=== PATIENT | male | born 1960 | race American Indian/Alaskan Native ===

== ENCOUNTER 2016-12-20 10:33 | Outpatient (CLI) | payer MEDICARE ==
[2016-12-20] MEDS ORDERED: XYLOCAINE TOPICAL 4% TP ONE (10:57)
== END 2016-12-20 10:34 | disposition home or self-care (01) ==
LOC: WOUND 10:33
PROVIDERS: ATTEND Surgery
DX: T81.89XA Other complications of procedures, not elsewhere classified, initial encounter (principal); E11.9 Type 2 diabetes mellitus without complications; Z87.891 Personal history of nicotine dependence; Y83.8 Other surgical procedures as the cause of abnormal reaction of the patient, or of later complication, without mention of misadventure at the time of the procedure; Y92.89 Other specified places as the place of occurrence of the external cause
CPT/HCPCS: 11043; 11046; G0463

== ENCOUNTER 2016-12-26 10:16 | Outpatient (CLI) | payer MEDICARE ==
[2016-12-26] MEDS ORDERED: XYLOCAINE TOPICAL 4% TP ONE (10:39)
[2016-12-26] MEDS ORDERED: SILVER NITRATE TP ONE ×2 (11:03→11:48)
== END 2016-12-26 10:17 | disposition home or self-care (01) ==
LOC: WOUND 10:16
PROVIDERS: ATTEND Surgery
DX: T81.89XD Other complications of procedures, not elsewhere classified, subsequent encounter (principal); Y83.8 Other surgical procedures as the cause of abnormal reaction of the patient, or of later complication, without mention of misadventure at the time of the procedure; E11.9 Type 2 diabetes mellitus without complications; Z87.891 Personal history of nicotine dependence

== ENCOUNTER 2016-12-26 12:14 | Outpatient (CLI) | payer MEDICARE ==
--- NOTE | 2016-12-26 13:43 | XRay Report ---
ROUTINE CHEST, TWO VIEWS: HISTORY: Hypertension, diabetes. The trachea, heart, mediastinal contour, lung benedict and bony thorax are unremarkable. No significant change since 04/21/15. IMPRESSION: Unremarkable chest x-ray.
== END 2016-12-26 12:15 | disposition home or self-care (01) ==
LOC: XRAY 12:14
PROVIDERS: ATTEND Surgery
DX: E11.9 Type 2 diabetes mellitus without complications (principal); I10 Essential (primary) hypertension
CPT/HCPCS: 36415; 71020; 83036; 84134

== ENCOUNTER 2017-01-23 10:00 | Outpatient (CLI) | payer MEDICARE ==
[2017-01-23] MEDS ORDERED: XYLOCAINE TOPICAL 4% TP ONE ×2 (10:14→11:00)
== END 2017-01-23 10:01 | disposition home or self-care (01) ==
LOC: WOUND 10:00
PROVIDERS: ATTEND Surgery
DX: T81.89XD Other complications of procedures, not elsewhere classified, subsequent encounter (principal); E11.9 Type 2 diabetes mellitus without complications; Z87.891 Personal history of nicotine dependence; Y83.8 Other surgical procedures as the cause of abnormal reaction of the patient, or of later complication, without mention of misadventure at the time of the procedure

== ENCOUNTER 2017-01-30 09:55 | Outpatient (CLI) | payer MEDICARE ==
[2017-01-30] MEDS ORDERED: XYLOCAINE TOPICAL 4% TP ONE ×2 (11:36→11:41)
== END 2017-01-30 09:56 | disposition home or self-care (01) ==
LOC: WOUND 09:55
PROVIDERS: ATTEND Surgery
DX: T81.89XD Other complications of procedures, not elsewhere classified, subsequent encounter (principal); E11.9 Type 2 diabetes mellitus without complications; Z87.891 Personal history of nicotine dependence; Y83.8 Other surgical procedures as the cause of abnormal reaction of the patient, or of later complication, without mention of misadventure at the time of the procedure
CPT/HCPCS: 97605

== ENCOUNTER 2017-02-06 10:09 | Outpatient (CLI) | payer MEDICARE ==
[2017-02-06] MEDS ORDERED: XYLOCAINE TOPICAL 4% TP ONE ×2 (10:30→10:35)
== END 2017-02-06 10:10 | disposition home or self-care (01) ==
LOC: WOUND 10:09
PROVIDERS: ATTEND Surgery
DX: T81.89XD Other complications of procedures, not elsewhere classified, subsequent encounter (principal); E11.9 Type 2 diabetes mellitus without complications; Z87.891 Personal history of nicotine dependence
CPT/HCPCS: 97605

== ENCOUNTER 2017-02-13 10:15 | Outpatient (CLI) | payer MEDICARE ==
[2017-02-13] MEDS ORDERED: XYLOCAINE TOPICAL 4% TP ONE (10:44)
== END 2017-02-13 10:16 | disposition home or self-care (01) ==
LOC: WOUND 10:15
PROVIDERS: ATTEND Surgery
DX: T81.89XD Other complications of procedures, not elsewhere classified, subsequent encounter (principal); E11.40 Type 2 diabetes mellitus with diabetic neuropathy, unspecified; Z87.891 Personal history of nicotine dependence; Y83.8 Other surgical procedures as the cause of abnormal reaction of the patient, or of later complication, without mention of misadventure at the time of the procedure
CPT/HCPCS: 97605

== ENCOUNTER 2017-02-20 10:09 | Outpatient (CLI) | payer MEDICARE ==
[2017-02-20] MEDS ORDERED: XYLOCAINE TOPICAL 4% TP ONE (10:19)
== END 2017-02-20 10:10 | disposition home or self-care (01) ==
LOC: WOUND 10:09
PROVIDERS: ATTEND Surgery
DX: T81.89XD Other complications of procedures, not elsewhere classified, subsequent encounter (principal); E11.40 Type 2 diabetes mellitus with diabetic neuropathy, unspecified; Z87.891 Personal history of nicotine dependence; Y83.8 Other surgical procedures as the cause of abnormal reaction of the patient, or of later complication, without mention of misadventure at the time of the procedure
CPT/HCPCS: 97605

== ENCOUNTER 2017-02-27 10:25 | Outpatient (CLI) | payer MEDICARE ==
[2017-02-27] MEDS ORDERED: XYLOCAINE TOPICAL 4% TP ONE ×2 (10:51→11:01)
== END 2017-02-27 10:26 | disposition home or self-care (01) ==
LOC: WOUND 10:25
PROVIDERS: ATTEND Surgery
DX: T81.89XD Other complications of procedures, not elsewhere classified, subsequent encounter (principal); E11.9 Type 2 diabetes mellitus without complications; Z87.891 Personal history of nicotine dependence; Y83.8 Other surgical procedures as the cause of abnormal reaction of the patient, or of later complication, without mention of misadventure at the time of the procedure
CPT/HCPCS: 97605

== ENCOUNTER 2017-03-06 10:33 | Outpatient (CLI) | payer MEDICARE ==
[2017-03-06] MEDS ORDERED: XYLOCAINE TOPICAL 4% TP ONE (11:02)
== END 2017-03-06 10:34 | disposition home or self-care (01) ==
LOC: WOUND 10:33
PROVIDERS: ATTEND Surgery
DX: T87.89 Other complications of amputation stump (principal); E11.621 Type 2 diabetes mellitus with foot ulcer; L97.521 Non-pressure chronic ulcer of other part of left foot limited to breakdown of skin; Z87.891 Personal history of nicotine dependence; Y83.5 Amputation of limb(s) as the cause of abnormal reaction of the patient, or of later complication, without mention of misadventure at the time of the procedure

== ENCOUNTER 2017-03-13 10:03 | Outpatient (CLI) | payer MEDICARE ==
[~2017-03-13 10:03] MED LIST: AD OINTMENT TP SCH
[2017-03-13] MEDS ORDERED: AD OINTMENT TP ONE (10:33)
[2017-03-13] MEDS ORDERED: XYLOCAINE TOPICAL 4% TP ONE (11:00)
== END 2017-03-13 10:04 | disposition home or self-care (01) ==
LOC: WOUND 10:03
PROVIDERS: ATTEND Surgery
DX: T87.89 Other complications of amputation stump (principal); E11.621 Type 2 diabetes mellitus with foot ulcer; L97.521 Non-pressure chronic ulcer of other part of left foot limited to breakdown of skin; Z87.891 Personal history of nicotine dependence; Y83.5 Amputation of limb(s) as the cause of abnormal reaction of the patient, or of later complication, without mention of misadventure at the time of the procedure
CPT/HCPCS: A6250

== ENCOUNTER 2017-03-20 10:08 | Outpatient (CLI) | payer MEDICARE ==
[2017-03-20] MEDS ORDERED: XYLOCAINE TOPICAL 4% TP ONE (10:29)
== END 2017-03-20 10:09 | disposition home or self-care (01) ==
LOC: WOUND 10:08
PROVIDERS: ATTEND Surgery
DX: T87.89 Other complications of amputation stump (principal); E11.9 Type 2 diabetes mellitus without complications; Z87.891 Personal history of nicotine dependence; Y83.5 Amputation of limb(s) as the cause of abnormal reaction of the patient, or of later complication, without mention of misadventure at the time of the procedure

== ENCOUNTER 2017-03-27 10:06 | Outpatient (CLI) | payer MEDICARE ==
[2017-03-27] MEDS ORDERED: XYLOCAINE TOPICAL 4% TP ONE (10:26)
[2017-03-27] MEDS ORDERED: AD OINTMENT TP PRN (10:32)
== END 2017-03-27 10:07 | disposition home or self-care (01) ==
LOC: WOUND 10:06
PROVIDERS: ATTEND Surgery
DX: T87.89 Other complications of amputation stump (principal); E11.621 Type 2 diabetes mellitus with foot ulcer; L97.521 Non-pressure chronic ulcer of other part of left foot limited to breakdown of skin; Z87.891 Personal history of nicotine dependence; Y83.5 Amputation of limb(s) as the cause of abnormal reaction of the patient, or of later complication, without mention of misadventure at the time of the procedure
CPT/HCPCS: A6250

== ENCOUNTER 2017-04-03 10:01 | Outpatient (CLI) | payer MEDICARE | END 2017-04-03 10:02 | disposition home or self-care (01) | LOC: WOUND 10:01 | PROVIDERS: ATTEND Surgery | DX: T87.89 Other complications of amputation stump (principal); E11.621 Type 2 diabetes mellitus with foot ulcer; L97.521 Non-pressure chronic ulcer of other part of left foot limited to breakdown of skin; Z87.891 Personal history of nicotine dependence; Y83.5 Amputation of limb(s) as the cause of abnormal reaction of the patient, or of later complication, without mention of misadventure at the time of the procedure | CPT/HCPCS: 99211; G0463 ==

== ENCOUNTER 2019-10-24 13:31 | Inpatient (IN) | payer MEDICARE, OTHER ==
[2019-10-24 15:59] LABS: Alanine Aminotransferase 8 units/L (7-56); Albumin 3.4 g/dL (3.9-5); BUN/Creatinine Ratio 25; Basophils % (Auto) 0.6 % (0.0-1.8); Blood Urea Nitrogen 27 mg/dL (9-20); Eosinophils # (Auto) 0.1 K/mm3 (0.0-0.4); Eosinophils % (Auto) 2.1 % (0.0-4.3); Hematocrit 39.9 % (35.5-45.6); Hemolysis Index 0; Lymphocytes # (Auto) 1.1 K/mm3 (1.2-5.4); Lymphocytes % (Auto) 19.4 % (13.4-35.0); Mean Corpuscular HGB Conc 33 % (32-34); Mean Corpuscular Volume 81 fl (84-94); Monocytes # (Auto) 0.4 K/mm3 (0.0-0.8); Monocytes % (Auto) 7.4 % (0.0-7.3); Platelet Count 217 K/mm3 (140-440); Red Blood Count 4.95 M/mm3 (3.65-5.03); Red Cell Distribution Width 14.1 % (13.2-15.2)
--- NOTE | 2019-10-24 21:13 | Emergency Department Report ---
ED Syncope HPI - General Chief Complaint: Syncope Stated Complaint: SYNCOPAL EPISODE Time Seen by Provider: 10/24/19 21:08 Source: patient Exam Limitations: no limitations - History of Present Illness Initial Comments: Patient is a 59-year-old male that presents emergency room with complaints of dizziness, lightheadedness and syncope. Patient states that he had a syncopal episode today. Patient states he had a brief loss of consciousness. Patient states his syncopal episode was witnessed by his . Patient states prior to his syncopal episode he felt lightheaded and dizzy. Patient states he still feeling lightheaded and dizzy. Patient denies chest pain or shortness of breath. Patient states he has history of diabetes. Patient states he does have his diabetic medications and did not eat or drink as much food and water today as he normally does. Patient denies trauma. Patient denies head injury. Patient states when he started feeling lightheaded and dizzy he sat down and passed out. Patient denies fever and chills. Patient denies shortness of breath. Patient denies abdominal pain. Patient denies recent travel. Patient denies recent international travel. Patient denies exposure to the novel coronavirus. Patient denies sick contacts. Patient denies fever and chills. Patient denies cough. Patient denies diarrhea. Patient denies coming in contact with anybody with symptoms of the novel coronavirus. Timing/Prior Episodes: single episode today Precipitating Factors: Positive: lightheadedness Context: standing Loss of Consciousness: brief (seconds) Current Symptoms: dizziness, lightheadedness - Related Data Allergies/Adverse Reactions: Allergies No Known Allergies Allergy (Verified 11/07/14 03:53) Home Medications: Ambulatory Orders metFORMIN [Glucophage] 1,000 mg PO BID 04/21/15 ED Review of Systems ROS: Stated complaint: SYNCOPAL EPISODE Other details as noted in HPI Constitutional: malaise. denies: chills, fever Eyes: denies: eye pain, eye discharge, vision change ENT: denies: ear pain, throat pain Respiratory: denies: cough, shortness of breath, wheezing Cardiovascular: denies: chest pain, palpitations Endocrine: no symptoms reported Gastrointestinal: denies: abdominal pain, nausea, diarrhea Genitourinary: denies: urgency, dysuria Musculoskeletal: denies: back pain, joint swelling, arthralgia Skin: denies: rash, lesions Neurological: as per HPI. denies: headache, weakness, paresthesias Psychiatric: denies: anxiety, depression Hematological/Lymphatic: denies: easy bleeding, easy bruising ED Past Medical Hx - Past Medical History Previous Medical History?: Yes Hx Hypertension: No Hx Congestive Heart Failure: No Hx Diabetes: Yes Hx Asthma: No - Surgical History Past Surgical History?: Yes Hx Appendectomy: Yes Additional Surgical History: pneumothorax 1991. appendectomy-2012 - Family History Family history: no significant - Social History Smoking Status: Never Smoker - Medications Home Medications: Home Medications Medication Instructions Recorded Confirmed Last Taken Type metFORMIN [Glucophage] 1,000 mg PO BID 04/21/15 04/21/15 Unknown History ED Physical Exam - General Limitations: No Limitations General appearance: alert, in no apparent distress - Head Head exam: Present: atraumatic, normocephalic - Eye Eye exam: Present: normal appearance, PERRL Pupils: Present: normal accommodation - ENT ENT exam: Present: mucous membranes dry - Neck Neck exam: Present: normal inspection - Respiratory Respiratory exam: Present: normal lung sounds bilaterally. Absent: respiratory distress - Cardiovascular Cardiovascular Exam: Present: regular rate, normal rhythm. Absent: systolic murmur, diastolic murmur, rubs, gallop - GI/Abdominal GI/Abdominal exam: Present: soft, normal bowel sounds - Rectal Rectal exam: Present: deferred - Extremities Exam Extremities exam: Present: normal inspection - Back Exam Back exam: Present: normal inspection - Neurological Exam Neurological exam: Present: alert, oriented X3 - Psychiatric Psychiatric exam: Present: normal affect, normal mood - Skin Skin exam: Present: warm, dry, intact, normal color. Absent: rash ED Course Vital Signs 10/24/19 14:05 Temperature 97.6 F Pulse Rate 92 H Respiratory 20 Rate Blood Pressure 94/70 O2 Sat by Pulse 99 Oximetry - Reevaluation(s) Reevaluation #1: I discussed the lab results and findings with patient. I discussed CTA with patient and patient agrees to have a CTA. Patient agrees with plan of care. 10/24/19 22:43 Reevaluation #2: Patient was started on a heparin drip. Heparin protocol ordered. I discussed all results with patient. I discussed plan of care with patient. Patient agrees with plan of care and admission. Patient to be admitted to the hospitalist service. 10/25/19 00:15 - Consultations Consultation #1: I discussed case with Dr. Tripp, vascular surgery. Vascular surgery has no further recommendations except for admission and a heparin drip. 10/24/19 23:55 Consultation #2: Hospitalist consulted for admission. Hospitalist to admit patient. 10/24/19 23:56 ED Medical Decision Making - Lab Data Result diagrams: 10/24/19 15:17 10/24/19 15:17 - EKG Data -: EKG Interpreted by Me EKG shows normal: sinus rhythm, intervals, QRS complexes, ST-T waves Rate: normal - EKG Data Interpretation: other ( [place] deviation noted. Left anterior fascicular block noted.) - Radiology Data Radiology results: report reviewed, image reviewed interpreted by me: Chest x-ray: No pneumonia, no pneumothorax, no acute findings, no osseous findings, no foreign body. CTA CHEST WITH IV CONTRAST INDICATION: syncope. elevated d-dimer. TECHNIQUE: Axial CT images were obtained through the chest after injection of 100 cc Omnipaque 350 IV contrast. 3 plane MIP reconstructions were produced. All CT scans at this location are performed using CT dose reduction for [employer] by means of automated exposure control. COMPARISON: None available. FINDINGS: PULMONARY ARTERIES: Acute moderate-sized saddle pulmonary embolus straddling both right and left pulmonary arteries extending into left lower lobar pulmonary artery with additional small segmental PTE within a right lower lobe segmental pulmonary artery. THORACIC AORTA: No acute abnormality. HEART: Normal. No CT evidence for RV strain CORONARY ARTERIES: No significant calcification. PLEURA: No pleural effusion. No pneumothorax. LYMPH NODES: No significant adenopathy. LUNGS: No acute air space or interstitial disease. ADDITIONAL FINDINGS: Moderate symmetric bilateral gynecomastia. 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 SKELETAL STRUCTURES: No significant osseous abnormality. IMPRESSION: 1. Acute moderate saddle pulmonary embolus. CHEST 1 VIEW INDICATION: syncope. COMPARISON: 12/26/2016 FINDINGS: SUPPORT DEVICES: None. HEART: Within normal limits. LUNGS/PLEURA: No acute air space or interstitial disease. ADDITIONAL FINDINGS: None. IMPRESSION: 1. No acute findings. CT head without contrast INDICATION : syncope, dizzy. TECHNIQUE: Axial imaging performed from the skull apex through the skull base without the use of contrast. All CT scans at this location are performed using CT dose reduction for ALARA by means of automated exposure control. COMPARISON: CT head from 09/07/2007 FINDINGS: Parenchyma: No acute intracranial hemorrhage or parenchymal abnormality. Ventricles: Ventricles are normal in size and appear symmetric. Soft tissues: Soft tissues including the orbits appear normal. Bones: No acute osseous abnormality. Sinuses: Sinuses and mastoid air cells are clear. IMPRESSION: No acute abnormality. - Medical Decision Making Patient is a 59-year-old male that presents emergency room with complaints of dizziness, lightheadedness and syncope. Patient had a brief loss of consciousness. Patient's vital signs stable. Patient had EKG done which showed sinus rhythm and no STEMI. Patient had a chest x-ray which was negative. Patient had a head CT for the dizziness and syncope and it was negative for acute findings. Patient had labs done which were consistent with dehydration. Patient had a d-dimer tested because of his syncopal episode. Patient's d-dimer was significant elevated. Patient then had a CTA which shows a saddle embolism with no RV strain. I discussed the CTA findings with vascular surgery and they recommended just a standard heparin drip and bolus and admission. Patient admitted to the hospitalist service. - Differential Diagnosis Dehydration, hyperglycemia, hypoglycemia, electrolyte imbalance, syncope Critical Care Time: Yes Critical care time in (mins) excluding proc time.: 35 Critical care attestation.: If time is entered above; I have spent that time in minutes in the direct care of this critically ill patient, excluding procedure time. 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
[2019-10-24] MEDS ORDERED: SODIUM CHLORIDE 0.9% 1000 ML 1,000 ML IV ONE (21:16)
--- NOTE | 2019-10-24 21:49 | XRay Report ---
CHEST 1 VIEW INDICATION: syncope. COMPARISON: 12/26/2016 FINDINGS: SUPPORT DEVICES: None. HEART: Within normal limits. LUNGS/PLEURA: No acute air space or interstitial disease. ADDITIONAL FINDINGS: None. IMPRESSION: 1. No acute findings. Signer Name: Leonel Mello MD Signed: 10/24/2019 9:45 PM Workstation Name: [id number]
--- NOTE | 2019-10-24 22:07 | Cat Scan Report ---
CT head without contrast INDICATION : syncope, dizzy. TECHNIQUE: Axial imaging performed from the skull apex through the skull base without the use of con trast. All CT scans at this location are performed using CT dose reduction for ALARA by means of aut omated exposure control. COMPARISON: CT head from 09/07/2007 FINDINGS: Parenchyma: No acute intracranial hemorrhage or parenchymal abnormality. Ventricles: Ventricles are normal in size and appear symmetric. Soft tissues: Soft tissues including the orbits appear normal. Bones: No acute osseous abnormality. Sinuses: Sinuses and mastoid air cells are clear. IMPRESSION: No acute abnormality. Signer Name: Leonel Mello MD Signed: 10/24/2019 10:02 PM Workstation Name: [id number]
[2019-10-24 22:15] LABS: Creatine Kinase MB 3.7 ng/mL (0.0-4.0)
[2019-10-24] MEDS ORDERED: HEPARIN 10,000 UNITS/10 ML VIAL IV ONE (23:43)
--- NOTE | 2019-10-24 23:50 | Cat Scan Report ---
CTA CHEST WITH IV CONTRAST INDICATION: syncope. elevated d-dimer. TECHNIQUE: Axial CT images were obtained through the chest after injection of 100 cc Omnipaque 350 IV contrast. 3 plane MIP reconstructions were produced. All CT scans at this location are performed using CT dose reduction for ALARA by means of automated exposure control. COMPARISON: None available. FINDINGS: PULMONARY ARTERIES: Acute moderate-sized saddle pulmonary embolus straddling both right and left pulm onary arteries extending into left lower lobar pulmonary artery with additional small segmental PTE w ithin a right lower lobe segmental pulmonary artery. THORACIC AORTA: No acute abnormality. HEART: Normal. No CT evidence for RV strain CORONARY ARTERIES: No significant calcification. PLEURA: No pleural effusion. No pneumothorax. LYMPH NODES: No significant adenopathy. LUNGS: No acute air space or interstitial disease. ADDITIONAL FINDINGS: Moderate symmetric bilateral gynecomastia. 1.6 cm intramuscular lipoma left pect oralis major muscle series 2 image 54 UPPER ABDOMEN: No acute findings. SKELETAL STRUCTURES: No significant osseous abnormality. IMPRESSION: 1. Acute moderate saddle pulmonary embolus. CRITICAL RESULT: Acute saddle pulmonary embolus Time of Discovery: 10:42 PM Central time 10/24/2019 Time of Communication: 10:43 PM central time Licensed Practitioner Receiving Report: [place] [facility] Read Back Performed: Yes. Signer Name: Artem Rodríguez MD Signed: 10/24/2019 11:45 PM Workstation Name: [id number]
[2019-10-24] MEDS ORDERED: HEPARIN/ 0.45% NACL DRIP 25,000 UNIT/500 ML BAG ONE (23:54)
[2019-10-25] MEDS: HEPARIN/ 0.45% NACL DRIP 25,000 UNIT/500 ML BAG IV SCH ×2 (00:08→21:18)
[2019-10-25 00:40] LABS: INR 1.02 (0.87-1.13); Partial Thromboplastin Time 27.8 Sec. (24.2-36.6)
[2019-10-25] MEDS ORDERED: ACETAMINOPHEN 325 MG TAB PO PRN (02:53)
[2019-10-25] MEDS ORDERED: MORPHINE 2 MG/1 ML INJ IV PRN (02:53)
[2019-10-25] MEDS ORDERED: DEXTROSE 50% IN WATER (25GM) 50 ML SYRINGE IV PRN (02:53)
[2019-10-25] MEDS ORDERED: ONDANSETRON 4 MG/2 ML INJ IV PRN (02:53)
[2019-10-25] MEDS ORDERED: MAGNESIUM HYDROXIDE (MOM) ORAL LIQD UDC PO PRN (02:53)
--- NOTE | 2019-10-25 03:07 | History and Physical Report ---
History of Present Illness Date of examination: 10/25/19 Date of admission: 10/25/19 01:22 Chief complaint: Syncope Light headedness Dizziness History of present illness: 59-year-old -[place] male with known history of diabetes mellitus presented to the emergency room today with complaints of dizziness and syncopal episode. He admits that he had a brief period of loss of consciousness which was witnessed by his . He still felt dizzy upon arrival in the emergency room. Denies any chest pain or shortness of breath, no fever or chills, no nausea or vomiting, no diarrhea, denies any sick contacts and no recent travel. Denies any contact with anyone COVID-19. Patient admits that he sits down at home for long period of time. Work-up in the emergency room today reveals elevated d-dimer. CT angiogram done reveals saddle embolus. Consult has been placed to the vascular surgeon Dr. Tripp who will be evaluating patient. Meanwhile patient has been placed on heparin drip. Past History Past Medical History: diabetes Past Surgical History: appendectomy (2012), Other (Pneumothorax 1991) Social history: no significant social history Family history: no significant family history Medications and Allergies Allergies Allergy/AdvReac Type Severity Reaction Status Date / Time No Known Allergies Allergy Verified 11/07/14 03:53 Home Medications Medication Instructions Recorded Confirmed Last Taken Type metFORMIN [Glucophage] 500 mg PO BID 04/21/15 10/25/19 Unknown History Insulin Glargine [Lantus VIAL] 36 unit SUB-Q QHS 10/25/19 10/25/19 Unknown History Active Meds: Active Medications Acetaminophen (Tylenol) 650 mg PO Q4H PRN PRN Reason: Pain MILD(1-3)/Fever >100.5/ONEAL Dextrose (D50w (25gm) Syringe) 50 ml IV Q30MIN PRN; Protocol PRN Reason: Hypoglycemia Heparin Sodium/Sodium Chloride (Heparin/ 0.45% Nacl-25,000 Unit/500 Ml) 25,000 unit in 500 mls @ 30 mls/hr IV TITR LUCERO; Protocol Last Admin: 10/25/19 00:08 Dose: 1,500 units/hr, 30 mls/hr Documented by: Insulin Human Lispro (Humalog) 0 unit SUB-Q ACHS LUCERO; Protocol Magnesium Hydroxide (Milk Of Magnesia) 30 ml PO Q4H PRN PRN Reason: Constipation Morphine Sulfate (Morphine) 2 mg IV Q4H PRN PRN Reason: Pain, Moderate (4-6) Ondansetron HCl (Zofran) 4 mg IV Q8H PRN PRN Reason: Nausea And Vomiting Sodium Chloride (Sodium Chloride Flush Syringe 10 Ml) 10 ml IV BID LUCERO Sodium Chloride (Sodium Chloride Flush Syringe 10 Ml) 10 ml IV PRN PRN PRN Reason: LINE FLUSH Review of Systems Constitutional: no fever, no chills Ears, nose, mouth and throat: no nasal congestion, no sore throat Cardiovascular: no chest pain, no palpitations Respiratory: no cough, no shortness of breath Genitourinary Male: no dysuria, no hematuria, no flank pain Musculoskeletal: no neck pain, no low back pain Integumentary: no rash, no pruritis Neurological: syncope, other (Dizziness), no headaches, no confusion Psychiatric: no anxiety, no depression Exam - Constitutional Vitals: Temp Pulse Resp BP Pulse Ox 97.6 F 86 12 122/84 96 10/24/19 14:05 10/25/19 02:45 10/25/19 02:45 10/25/19 02:45 10/25/19 02:45 General appearance: Present: no acute distress, well-nourished - EENT Eyes: Present: PERRL, EOM intact. Absent: scleral icterus ENT: hearing intact, clear oral mucosa, dentition normal - Neck Neck: Present: supple, normal ROM - Respiratory Respiratory effort: normal Respiratory: bilateral: CTA - Cardiovascular Rhythm: regular Heart Sounds: Present: S1 & S2. Absent: gallop, systolic murmur, diastolic murmur, rub - Extremities Extremities: no ischemia, pulses intact, pulses symmetrical, No edema, Full ROM Peripheral Pulses: within normal limits - Abdominal General gastrointestinal: Present: soft, non-tender, non-distended, normal bowel sounds. Absent: mass - Integumentary Integumentary: Present: clear, warm, dry. Absent: rash - Musculoskeletal Musculoskeletal: strength equal bilaterally - Psychiatric Psychiatric: appropriate mood/affect, intact judgment & insight, memory intact, cooperative - Neurologic Neurologic: CNII-XII intact, no focal deficits, moves all extremities HEART Score - HEART Score Troponin: Troponin T < 0.010 ng/mL (0.00-0.029) 10/24/19 15:17 Results - Labs CBC & Chem 7: 10/24/19 15:17 10/24/19 15:17 Labs: Abnormal lab results 10/24/19 10/24/19 10/24/19 Range/Units 15:17 15:17 21:24 MCV 81 L (84-94) fl MCH 26 L (28-32) pg [place] % (Auto) 7.4 H (0.0-7.3) % Lymph # 1.1 L (1.2-5.4) K/mm3 Seg Neutrophils % 70.5 H (40.0-70.0) % D-Dimer 2474.81 H (0-234) ng/mlDDU Sodium 133 L (137-145) mmol/L Chloride 96.2 L (98-107) mmol/L BUN 27 H (9-20) mg/dL Glucose 328 H (75-100) mg/dL Albumin 3.4 L (3.9-5) g/dL Assessment and Plan - Patient Problems (1) Pulmonary embolism Current Visit: Yes Status: Acute Qualifiers: Pulmonary embolism type: saddle Chronicity: acute Acute cor pulmonale presence: without acute cor pulmonale Qualified Code(s): I26.92 - Saddle embolus of pulmonary artery without acute cor pulmonale Plan to address problem: Patient placed on heparin drip. Consult has been placed to vascular surgeon for evaluation and recommendation. (2) Diabetes mellitus Current Visit: Yes Status: Acute Plan to address problem: We will monitor Accu-Cheks closely. (3) Full code status Current Visit: Yes Status: Acute
[2019-10-25] MEDS: INSULIN LISPRO 100 UNIT/ML VIAL 3 mL SUB-Q SCH ×4 (08:49→22:10)
--- NOTE | 2019-10-25 10:53 | Progress Note ---
Assessment and Plan Assessment and plan: Pulmonary embolism. Continue heparin drip. Vascular consultation pending. Check echocardiogram for right heart strain. Diabetes mellitus type 2. Continue Accu-Cheks and sliding scale insulin. Total visit time equals 35 minutes with greater than 50% spent on coordination of care and counseling. History Interval history: No new issues overnight. Hospitalist Physical - Constitutional Vitals: Temp Pulse Resp BP Pulse Ox 97.8 F 87 12 134/88 93 10/25/19 08:00 10/25/19 10:00 10/25/19 10:00 10/25/19 10:00 10/25/19 10:00 General appearance: Present: no acute distress, well-nourished - EENT Eyes: Present: PERRL, EOM intact ENT: hearing intact, clear oral mucosa, dentition normal - Neck Neck: Present: supple, normal ROM - Respiratory Respiratory effort: normal Respiratory: bilateral: CTA - Cardiovascular Rhythm: regular Heart Sounds: Present: S1 & S2. Absent: gallop, rub - Extremities Extremities: no ischemia, No edema, Full ROM - Abdominal General gastrointestinal: soft, non-tender, non-distended, normal bowel sounds - Integumentary Integumentary: Present: clear, warm, dry - Neurologic Neurologic: CNII-XII intact, moves all extremities HEART Score - HEART Score Troponin: Troponin T < 0.010 ng/mL (0.00-0.029) 10/24/19 15:17 Results - Labs CBC & Chem 7: 10/24/19 15:17 10/24/19 15:17 Labs: Laboratory Last Values WBC 5.6 K/mm3 (4.5-11.0) 10/24/19 15:17 RBC 4.95 M/mm3 (3.65-5.03) 10/24/19 15:17 Hgb 13.0 gm/dl (11.8-15.2) 10/24/19 15:17 Hct 39.9 % (35.5-45.6) 10/24/19 15:17 MCV 81 fl (84-94) L 10/24/19 15:17 MCH 26 pg (28-32) L 10/24/19 15:17 MCHC 33 % (32-34) 10/24/19 15:17 RDW 14.1 % (13.2-15.2) 10/24/19 15:17 Plt Count 217 K/mm3 (140-440) 10/24/19 15:17 Lymph % (Auto) 19.4 % (13.4-35.0) 10/24/19 15:17 [place] % (Auto) 7.4 % (0.0-7.3) H 10/24/19 15:17 Eos % (Auto) 2.1 % (0.0-4.3) 10/24/19 15:17 Baso % (Auto) 0.6 % (0.0-1.8) 10/24/19 15:17 Lymph # 1.1 K/mm3 (1.2-5.4) L 10/24/19 15:17 [place] # 0.4 K/mm3 (0.0-0.8) 10/24/19 15:17 Eos # 0.1 K/mm3 (0.0-0.4) 10/24/19 15:17 Baso # 0.0 K/mm3 (0.0-0.1) 10/24/19 15:17 Seg Neutrophils % 70.5 % (40.0-70.0) H 10/24/19 15:17 Seg Neutrophils # 3.9 K/mm3 (1.8-7.7) 10/24/19 15:17 PT 13.6 Sec. (12.2-14.9) 10/24/19 21:24 INR 1.02 (0.87-1.13) 10/24/19 21:24 APTT 27.8 Sec. (24.2-36.6) 10/24/19 21:24 D-Dimer 2474.81 ng/mlDDU (0-234) H 10/24/19 21:24 Heparin Anti-Xa Level 1.38 U.I./ml (0.3-0.7) H 10/25/19 05:45 Sodium 133 mmol/L (137-145) L 10/24/19 15:17 Potassium 4.4 mmol/L (3.6-5.0) 10/24/19 15:17 Chloride 96.2 mmol/L (98-107) L 10/24/19 15:17 Carbon Dioxide 23 mmol/L (22-30) 10/24/19 15:17 Anion Gap 18 mmol/L 10/24/19 15:17 BUN 27 mg/dL (9-20) H 10/24/19 15:17 Creatinine 1.1 mg/dL (0.8-1.3) 10/24/19 15:17 Estimated GFR > 60 ml/min 10/24/19 15:17 BUN/Creatinine Ratio 25 % 10/24/19 15:17 Glucose 328 mg/dL (75-100) H 10/24/19 15:17 POC Glucose 228 (70-105) H 10/25/19 08:20 Calcium 9.0 mg/dL (8.4-10.2) 10/24/19 15:17 Total Bilirubin 0.50 mg/dL (0.1-1.2) 10/24/19 15:17 AST 9 units/L (5-40) 10/24/19 15:17 ALT 8 units/L (7-56) 10/24/19 15:17 Alkaline Phosphatase 113 units/L (35-129) 10/24/19 15:17 Total Creatine Kinase 166 units/L (55-170) 10/24/19 21:24 CK-MB (CK-2) 3.7 ng/mL (0.0-4.0) 10/24/19 21:24 CK-MB (CK-2) Rel Index 2.2 (0-4) 10/24/19 21:24 Troponin T < 0.010 ng/mL (0.00-0.029) 10/24/19 15:17 Total Protein 7.1 g/dL (6.3-8.2) 10/24/19 15:17 Albumin 3.4 g/dL (3.9-5) L 10/24/19 15:17 Albumin/Globulin Ratio 0.9 % 10/24/19 15:17 Brandt/IV: Voiding Method Urinal IV Catheter Type [Right Hand] Peripheral IV IV Catheter Type [Left INT / Saline Lock Antecubital] Active Medications - Current Medications Current Medications: Generic Name Dose Route Start Last Admin Trade Name Freq PRN Reason Stop Dose Admin Acetaminophen 650 mg 10/25/19 02:53 Tylenol PO Q4H PRN Pain MILD(1-3)/Fever >100.5/ONEAL Dextrose 0 ml 10/25/19 02:53 D50w (25gm) Syringe IV Q30MIN PRN Hypoglycemia Protocol Heparin Sodium/Sodium Chloride 25,000 unit in 500 mls @ 30 mls/hr 10/24/19 23:45 10/25/19 08:38 Heparin/ 0.45% Nacl-25,000 Unit/500 Ml IV 1,300 units/hr TITR LUCERO 26 mls/hr Titration Protocol 1,500 UNITS/HR Insulin Human Lispro 0 unit 10/25/19 07:30 10/25/19 08:49 Humalog SUB-Q 3 unit ACHS LUCERO Administration Protocol Magnesium Hydroxide 30 ml 10/25/19 02:53 Milk Of Magnesia PO Q4H PRN Constipation Morphine Sulfate 2 mg 10/25/19 02:53 Morphine IV Q4H PRN Pain, Moderate (4-6) Ondansetron HCl 4 mg 10/25/19 02:53 Zofran IV Q8H PRN Nausea And Vomiting Sodium Chloride 10 ml 10/25/19 10:00 Sodium Chloride Flush Syringe 10 Ml IV BID LUCERO Sodium Chloride 10 ml 10/25/19 02:53 Sodium Chloride Flush Syringe 10 Ml IV PRN PRN LINE FLUSH
--- NOTE | 2019-10-25 11:06 | Consultation ---
History of Present Illness - Reason for Consult Consult date: 10/25/19 Pulmonary embolism - History of Present Illness Patient with a history of diabetes and recent immobility. He ambulates with a cane. He experienced a syncopal episode prior to arrival to the ED. He was found to have an elevated d-dimer and a CTA of his chest was performed. This demonstrates a nonocclusive saddle pulmonary embolus with small distal emboli. At time of examination, the patient is resting comfortably in bed breathing room air with a heart rate in the 80s. No complaints of chest pain. He has no prior history of DVT. No family history. He does not report any asymmetric lower extremity swelling recently. Past History Past Medical History: diabetes Past Surgical History: appendectomy (2012), Other (Pneumothorax 1991) Social history: no significant social history Family history: no significant family history Medications and Allergies Allergies Allergy/AdvReac Type Severity Reaction Status Date / Time No Known Allergies Allergy Verified 11/07/14 03:53 Home Medications Medication Instructions Recorded Confirmed Last Taken Type metFORMIN [Glucophage] 500 mg PO BID 04/21/15 10/25/19 Unknown History Insulin Glargine [Lantus VIAL] 36 unit SUB-Q QHS 10/25/19 10/25/19 Unknown History Active Meds: Active Medications Acetaminophen (Tylenol) 650 mg PO Q4H PRN PRN Reason: Pain MILD(1-3)/Fever >100.5/ONEAL Dextrose (D50w (25gm) Syringe) 0 ml IV Q30MIN PRN; Protocol PRN Reason: Hypoglycemia Heparin Sodium/Sodium Chloride (Heparin/ 0.45% Nacl-25,000 Unit/500 Ml) 25,000 unit in 500 mls @ 30 mls/hr IV TITR LUCERO; Protocol Last Titration: 10/25/19 08:38 Dose: 1,300 units/hr, 26 mls/hr Documented by: Insulin Human Lispro (Humalog) 0 unit SUB-Q ACHS LUCERO; Protocol Last Admin: 10/25/19 08:49 Dose: 3 unit Documented by: Magnesium Hydroxide (Milk Of Magnesia) 30 ml PO Q4H PRN PRN Reason: Constipation Morphine Sulfate (Morphine) 2 mg IV Q4H PRN PRN Reason: Pain, Moderate (4-6) Ondansetron HCl (Zofran) 4 mg IV Q8H PRN PRN Reason: Nausea And Vomiting Sodium Chloride (Sodium Chloride Flush Syringe 10 Ml) 10 ml IV BID LUCERO Sodium Chloride (Sodium Chloride Flush Syringe 10 Ml) 10 ml IV PRN PRN PRN Reason: LINE FLUSH Review of Systems All systems: negative Exam - Constitutional Vitals: Temp Pulse Resp BP Pulse Ox 97.8 F 87 12 134/88 93 10/25/19 08:00 10/25/19 10:00 10/25/19 10:00 10/25/19 10:00 10/25/19 10:00 General appearance: Present: no acute distress - EENT Eyes: Present: EOM intact ENT: hearing intact - Neck Neck: Present: supple, normal ROM - Respiratory Respiratory effort: normal - Extremities Extremities: Full ROM - Abdominal General gastrointestinal: Present: deferred Male genitourinary: Present: deferred - Rectal Rectal Exam: deferred - Psychiatric Psychiatric: appropriate mood/affect, cooperative Results - Labs CBC & Chem 7: 10/24/19 15:17 10/24/19 15:17 Labs: Abnormal lab results 10/24/19 10/24/19 10/24/19 Range/Units 15:17 15:17 21:24 MCV 81 L (84-94) fl MCH 26 L (28-32) pg [place] % (Auto) 7.4 H (0.0-7.3) % Lymph # 1.1 L (1.2-5.4) K/mm3 Seg Neutrophils % 70.5 H (40.0-70.0) % D-Dimer 2474.81 H (0-234) ng/mlDDU Heparin Anti-Xa Level (0.3-0.7) U.I./ml Sodium 133 L (137-145) mmol/L Chloride 96.2 L (98-107) mmol/L BUN 27 H (9-20) mg/dL Glucose 328 H (75-100) mg/dL POC Glucose (70-105) Albumin 3.4 L (3.9-5) g/dL 10/25/19 10/25/19 10/25/19 Range/Units 03:40 05:45 08:20 MCV (84-94) fl MCH (28-32) pg [place] % (Auto) (0.0-7.3) % Lymph # (1.2-5.4) K/mm3 Seg Neutrophils % (40.0-70.0) % D-Dimer (0-234) ng/mlDDU Heparin Anti-Xa Level 1.38 H (0.3-0.7) U.I./ml Sodium (137-145) mmol/L Chloride (98-107) mmol/L BUN (9-20) mg/dL Glucose (75-100) mg/dL POC Glucose 236 H 228 H (70-105) Albumin (3.9-5) g/dL - Imaging and Cardiology CT scan - chest: report reviewed, image reviewed Assessment and Plan Patient with a history of saddle pulmonary embolus which does not appear to be causing any issues at this time. He is currently on a heparin drip for anticoagulation and will need to be transitioned to oral anticoagulation for approximately 6 months following discharge. The patient will need to be evaluated with a bilateral lower extremity venous ultrasound to determine if additional thrombus is present. Patient does have negative troponins. The right heart is somewhat enlarged on CT scan and an echocardiogram will be ordered. The patient may benefit from nonemergent placement of thrombolytics catheters versus pulmonary thrombectomy to prevent CTEPH. We will plan on doing this on Sunday.
[2019-10-26 05:23] LABS: Basophils % (Auto) 0.9 % (0.0-1.8); Eosinophils # (Auto) 0.1 K/mm3 (0.0-0.4); Eosinophils % (Auto) 3.1 % (0.0-4.3); Hemoglobin 11.9 gm/dl (11.8-15.2); Lymphocytes # (Auto) 1.5 K/mm3 (1.2-5.4); Lymphocytes % (Auto) 31.6 % (13.4-35.0); Mean Corpuscular HGB Conc 34 % (32-34); Mean Corpuscular Volume 79 fl (84-94); Monocytes # (Auto) 0.3 K/mm3 (0.0-0.8); Monocytes % (Auto) 6.1 % (0.0-7.3); Platelet Count 199 K/mm3 (140-440); Red Blood Count 4.42 M/mm3 (3.65-5.03); Red Cell Distribution Width 13.9 % (13.2-15.2)
[2019-10-26 05:28] LABS: BUN/Creatinine Ratio 17; Blood Urea Nitrogen 17 mg/dL (9-20); Calcium 8.6 mg/dL (8.4-10.2); Hemolysis Index 0
[2019-10-26 05:33] LABS: INR 0.94 (0.87-1.13)
[2019-10-26] MEDS: INSULIN LISPRO 100 UNIT/ML VIAL 3 mL SUB-Q SCH ×4 (08:39→23:58)
--- NOTE | 2019-10-26 09:57 | Progress Note ---
Assessment and Plan Assessment and plan: Pulmonary embolism. Heparin drip. Vascular consultation pending. Check echocardiogram for right heart strain. Diabetes mellitus type 2. Continue Accu-Cheks and sliding scale insulin. 10/26/2019. Vascular surgery believes that the patient may benefit from nonemergent placement of thrombolytics catheters versus pulmonary thrombectomy to prevent CTEPH. We will plan on doing this on Sunday. Await echocardiogram to rule out right heart strain. Continue heparin drip for now until after the procedure and then transition to oral anticoagulation History Interval history: No new issues overnight. Hospitalist Physical - Constitutional Vitals: Temp Pulse Resp BP Pulse Ox 97.8 F 78 12 133/86 96 10/26/19 04:09 10/26/19 07:00 10/26/19 07:00 10/26/19 07:00 10/26/19 07:00 General appearance: Present: no acute distress - EENT Eyes: Present: PERRL, EOM intact ENT: hearing intact, clear oral mucosa, dentition normal - Neck Neck: Present: supple, normal ROM - Respiratory Respiratory effort: normal Respiratory: bilateral: CTA - Cardiovascular Rhythm: regular Heart Sounds: Present: S1 & S2. Absent: gallop, rub - Extremities Extremities: no ischemia, No edema, Full ROM - Abdominal General gastrointestinal: soft, non-tender, non-distended, normal bowel sounds - Integumentary Integumentary: Present: clear, warm, dry - Neurologic Neurologic: CNII-XII intact, moves all extremities HEART Score - HEART Score Troponin: Troponin T < 0.010 ng/mL (0.00-0.029) 10/24/19 15:17 Results - Labs CBC & Chem 7: 10/26/19 04:40 10/26/19 04:40 Labs: Laboratory Last Values WBC 4.8 K/mm3 (4.5-11.0) 10/26/19 04:40 RBC 4.42 M/mm3 (3.65-5.03) 10/26/19 04:40 Hgb 11.9 gm/dl (11.8-15.2) 10/26/19 04:40 Hct 35.0 % (35.5-45.6) L 10/26/19 04:40 MCV 79 fl (84-94) L 10/26/19 04:40 MCH 27 pg (28-32) L 10/26/19 04:40 MCHC 34 % (32-34) 10/26/19 04:40 RDW 13.9 % (13.2-15.2) 10/26/19 04:40 Plt Count 199 K/mm3 (140-440) 10/26/19 04:40 Lymph % (Auto) 31.6 % (13.4-35.0) 10/26/19 04:40 [place] % (Auto) 6.1 % (0.0-7.3) 10/26/19 04:40 Eos % (Auto) 3.1 % (0.0-4.3) 10/26/19 04:40 Baso % (Auto) 0.9 % (0.0-1.8) 10/26/19 04:40 Lymph # 1.5 K/mm3 (1.2-5.4) 10/26/19 04:40 [place] # 0.3 K/mm3 (0.0-0.8) 10/26/19 04:40 Eos # 0.1 K/mm3 (0.0-0.4) 10/26/19 04:40 Baso # 0.0 K/mm3 (0.0-0.1) 10/26/19 04:40 Seg Neutrophils % 58.3 % (40.0-70.0) 10/26/19 04:40 Seg Neutrophils # 2.8 K/mm3 (1.8-7.7) 10/26/19 04:40 PT 12.7 Sec. (12.2-14.9) 10/26/19 04:40 INR 0.94 (0.87-1.13) 10/26/19 04:40 APTT 27.8 Sec. (24.2-36.6) 10/24/19 21:24 D-Dimer 2474.81 ng/mlDDU (0-234) H 10/24/19 21:24 Heparin Anti-Xa Level 0.55 U.I./ml (0.3-0.7) 10/26/19 00:25 Sodium 136 mmol/L (137-145) L 10/26/19 04:40 Potassium 3.9 mmol/L (3.6-5.0) 10/26/19 04:40 Chloride 101.5 mmol/L (98-107) 10/26/19 04:40 Carbon Dioxide 24 mmol/L (22-30) 10/26/19 04:40 Anion Gap 14 mmol/L 10/26/19 04:40 BUN 17 mg/dL (9-20) 10/26/19 04:40 Creatinine 1.0 mg/dL (0.8-1.3) 10/26/19 04:40 Estimated GFR > 60 ml/min 10/26/19 04:40 BUN/Creatinine Ratio 17 % 10/26/19 04:40 Glucose 198 mg/dL (75-100) H 10/26/19 04:40 POC Glucose 199 (70-105) H 10/26/19 08:34 Calcium 8.6 mg/dL (8.4-10.2) 10/26/19 04:40 Total Bilirubin 0.50 mg/dL (0.1-1.2) 10/24/19 15:17 AST 9 units/L (5-40) 10/24/19 15:17 ALT 8 units/L (7-56) 10/24/19 15:17 Alkaline Phosphatase 113 units/L (35-129) 10/24/19 15:17 Total Creatine Kinase 166 units/L (55-170) 10/24/19 21:24 CK-MB (CK-2) 3.7 ng/mL (0.0-4.0) 10/24/19 21:24 CK-MB (CK-2) Rel Index 2.2 (0-4) 10/24/19 21:24 Troponin T < 0.010 ng/mL (0.00-0.029) 10/24/19 15:17 Total Protein 7.1 g/dL (6.3-8.2) 10/24/19 15:17 Albumin 3.4 g/dL (3.9-5) L 10/24/19 15:17 Albumin/Globulin Ratio 0.9 % 10/24/19 15:17 Brandt/IV: Voiding Method Urinal IV Catheter Type [Right Hand] Peripheral IV IV Catheter Type [Left INT / Saline Lock Antecubital] Active Medications - Current Medications Current Medications: Generic Name Dose Route Start Last Admin Trade Name Freq PRN Reason Stop Dose Admin Acetaminophen 650 mg 10/25/19 02:53 Tylenol PO Q4H PRN Pain MILD(1-3)/Fever >100.5/ONEAL Dextrose 0 ml 10/25/19 02:53 D50w (25gm) Syringe IV Q30MIN PRN Hypoglycemia Protocol Heparin Sodium/Sodium Chloride 25,000 unit in 500 mls @ 30 mls/hr 10/24/19 23:45 10/26/19 02:07 Heparin/ 0.45% Nacl-25,000 Unit/500 Ml IV 1,200 units/hr TITR LUCERO 24 mls/hr Titration Protocol 1,500 UNITS/HR Insulin Human Lispro 0 unit 10/25/19 07:30 10/26/19 08:39 Humalog SUB-Q 2 unit ACHS LUCERO Administration Protocol Magnesium Hydroxide 30 ml 10/25/19 02:53 Milk Of Magnesia PO Q4H PRN Constipation Morphine Sulfate 2 mg 10/25/19 02:53 Morphine IV Q4H PRN Pain, Moderate (4-6) Ondansetron HCl 4 mg 10/25/19 02:53 Zofran IV Q8H PRN Nausea And Vomiting Sodium Chloride 10 ml 10/25/19 10:00 10/25/19 21:18 Sodium Chloride Flush Syringe 10 Ml IV 10 ml BID LUCERO Administration Sodium Chloride 10 ml 10/25/19 02:53 Sodium Chloride Flush Syringe 10 Ml IV PRN PRN LINE FLUSH Nutrition/Malnutrition Assess - Dietary Evaluation Nutrition/Malnutrition Findings: Nutrition Notes Start: 10/25/19 12:07 Freq: Status: Active Protocol: Document 10/25/19 12:07 (Rec: 10/25/19 12:13 [id number]) Co-Sign 10/25/19 12:07 LP Nutrition Notes Need for Assessment generated from: MD Order,Education Initial or Follow up Brief Note Current Diagnosis Diabetes Other Pertinent Diagnosis Syncope, Hyperglycemia, Dehydration Current Diet Consistent CHO [place] Body Weight (kg) 0 Subjective/Other Information MD consult for diet edu. Pt reports eating 100% of meals and still feeling hungry. RD gave snack and double meat/ vegetable portions. #1 Nutrition Diagnosis Food and nutrition-related knowledge deficit Etiology inadquate prior DM edication As Evidenced by Signs and Symptoms pt had questions about DM diet Diagnosis Progress(for reassessment Resolved documentation) Nutrition Intervention Teaching Recipient Patient Learning Readiness Good Teaching Methods Discussion Response to Teaching Verbalize understanding Education Handouts Provided Hypo/Hyperglycemia Symptoms DM Edu for T2DM Barriers to Learning No Barriers RD phone number provided Yes Patient aware of follow up options Yes Revisit per MD consult or patient Sign Off request:
[2019-10-26] MEDS: HEPARIN/ 0.45% NACL DRIP 25,000 UNIT/500 ML BAG IV SCH (16:52)
[2019-10-26] MEDS: metFORMIN 500 MG TAB PO SCH (16:52)
[2019-10-26] MEDS: INSULIN GLARGINE 100 UNITS/ML SUB-Q SCH (23:57)
[2019-10-27] MEDS ORDERED: HEPARIN/NS 5000 UNIT/500ML 1,500 ML IR ONE (08:18)
[2019-10-27] MEDS ORDERED: ceFAZolin/Water 2 GM/20 ML 2 GM/20 ML SYRINGE IV ONE (08:19)
[2019-10-27] MEDS: metFORMIN 500 MG TAB PO SCH ×2 (08:28→16:02)
[2019-10-27] MEDS: INSULIN LISPRO 100 UNIT/ML VIAL 3 mL SUB-Q SCH ×4 (08:29→22:55)
[2019-10-27] MEDS ORDERED: SODIUM CHLORIDE 0.9% 1000 ML 1,000 ML ONE (08:33)
[2019-10-27] MEDS ORDERED: HEPARIN/ 0.45% NACL DRIP 0 UNIT/0 ML BAG ONE (08:33)
[2019-10-27] MEDS ORDERED: SODIUM CHLORIDE 0.9% 500 ML 500 ML ONE (09:27)
--- NOTE | 2019-10-27 10:34 | Progress Note ---
Assessment and Plan Assessment and plan: Pulmonary embolism. Heparin drip. Vascular consultation pending. Check echocardiogram for right heart strain. Diabetes mellitus type 2. Continue Accu-Cheks and sliding scale insulin. 10/26/2019. Vascular surgery believes that the patient may benefit from nonemergent placement of thrombolytics catheters versus pulmonary thrombectomy to prevent CTEPH. We will plan on doing this on Sunday. Await echocardiogram to rule out right heart strain. Continue heparin drip for now until after the procedure and then transition to oral anticoagulation 10/27/2019. Echocardiogram reveals mild to moderate concentric left ventricular hypertrophy with global left ventricular wall motion and contractility within normal limits. EF 55 to 60%. Right ventricular systolic function reported as normal. Vascular surgery to perform nonemergent placement of thrombolytics catheters versus pulmonary thrombectomy to prevent CTEPH. Continue IMCU monitoring. History Interval history: No new issues overnight. Hospitalist Physical - Constitutional Vitals: Temp Pulse Resp BP Pulse Ox 97.6 F 82 13 125/78 97 10/27/19 08:00 10/27/19 08:00 10/27/19 08:00 10/27/19 08:00 10/27/19 08:00 General appearance: Present: no acute distress - EENT Eyes: Present: PERRL, EOM intact ENT: hearing intact, clear oral mucosa, dentition normal - Neck Neck: Present: supple, normal ROM - Respiratory Respiratory effort: normal Respiratory: bilateral: CTA - Cardiovascular Rhythm: regular Heart Sounds: Present: S1 & S2. Absent: gallop, rub - Extremities Extremities: no ischemia, No edema, Full ROM - Abdominal General gastrointestinal: soft, non-tender, non-distended, normal bowel sounds - Integumentary Integumentary: Present: clear, warm, dry - Neurologic Neurologic: CNII-XII intact, moves all extremities HEART Score - HEART Score Troponin: Troponin T < 0.010 ng/mL (0.00-0.029) 10/24/19 15:17 Results - Labs CBC & Chem 7: 10/26/19 04:40 10/26/19 04:40 Labs: Laboratory Last Values WBC 4.8 K/mm3 (4.5-11.0) 10/26/19 04:40 RBC 4.42 M/mm3 (3.65-5.03) 10/26/19 04:40 Hgb 11.9 gm/dl (11.8-15.2) 10/26/19 04:40 Hct 35.0 % (35.5-45.6) L 10/26/19 04:40 MCV 79 fl (84-94) L 10/26/19 04:40 MCH 27 pg (28-32) L 10/26/19 04:40 MCHC 34 % (32-34) 10/26/19 04:40 RDW 13.9 % (13.2-15.2) 10/26/19 04:40 Plt Count 199 K/mm3 (140-440) 10/26/19 04:40 Lymph % (Auto) 31.6 % (13.4-35.0) 10/26/19 04:40 [place] % (Auto) 6.1 % (0.0-7.3) 10/26/19 04:40 Eos % (Auto) 3.1 % (0.0-4.3) 10/26/19 04:40 Baso % (Auto) 0.9 % (0.0-1.8) 10/26/19 04:40 Lymph # 1.5 K/mm3 (1.2-5.4) 10/26/19 04:40 [place] # 0.3 K/mm3 (0.0-0.8) 10/26/19 04:40 Eos # 0.1 K/mm3 (0.0-0.4) 10/26/19 04:40 Baso # 0.0 K/mm3 (0.0-0.1) 10/26/19 04:40 Seg Neutrophils % 58.3 % (40.0-70.0) 10/26/19 04:40 Seg Neutrophils # 2.8 K/mm3 (1.8-7.7) 10/26/19 04:40 PT 12.7 Sec. (12.2-14.9) 10/26/19 04:40 INR 0.94 (0.87-1.13) 10/26/19 04:40 APTT 27.8 Sec. (24.2-36.6) 10/24/19 21:24 Fibrinogen 425 mg/dl (211-480) 10/27/19 09:38 D-Dimer 2474.81 ng/mlDDU (0-234) H 10/24/19 21:24 Heparin Anti-Xa Level 0.43 U.I./ml (0.3-0.7) 10/27/19 00:45 Sodium 136 mmol/L (137-145) L 10/26/19 04:40 Potassium 3.9 mmol/L (3.6-5.0) 10/26/19 04:40 Chloride 101.5 mmol/L (98-107) 10/26/19 04:40 Carbon Dioxide 24 mmol/L (22-30) 10/26/19 04:40 Anion Gap 14 mmol/L 10/26/19 04:40 BUN 17 mg/dL (9-20) 10/26/19 04:40 Creatinine 1.0 mg/dL (0.8-1.3) 10/26/19 04:40 Estimated GFR > 60 ml/min 10/26/19 04:40 BUN/Creatinine Ratio 17 % 10/26/19 04:40 Glucose 198 mg/dL (75-100) H 10/26/19 04:40 POC Glucose 249 (70-105) H 10/27/19 09:29 Calcium 8.6 mg/dL (8.4-10.2) 10/26/19 04:40 Total Bilirubin 0.50 mg/dL (0.1-1.2) 10/24/19 15:17 AST 9 units/L (5-40) 10/24/19 15:17 ALT 8 units/L (7-56) 10/24/19 15:17 Alkaline Phosphatase 113 units/L (35-129) 10/24/19 15:17 Total Creatine Kinase 166 units/L (55-170) 10/24/19 21:24 CK-MB (CK-2) 3.7 ng/mL (0.0-4.0) 10/24/19 21:24 CK-MB (CK-2) Rel Index 2.2 (0-4) 10/24/19 21:24 Troponin T < 0.010 ng/mL (0.00-0.029) 10/24/19 15:17 Total Protein 7.1 g/dL (6.3-8.2) 10/24/19 15:17 Albumin 3.4 g/dL (3.9-5) L 10/24/19 15:17 Albumin/Globulin Ratio 0.9 % 10/24/19 15:17 - Diagnostic Impressions Diagnostic Impressions: Echocardiogram 10/25/19 08:51 Transthoracic Echocardiogram Indication: Saddle PE BP: 133/86 Conclusions *Mild to moderate concentric left ventricular hypertrophy is observed. *Global left ventricular wall motion and contractility are within normal limits. *The estimated ejection fraction is 55-60%. *Normal left ventricular diastolic filling is observed. *There is no pericardial effusion. Findings Left Ventricle: The left ventricular chamber size is normal. Mild to moderate concentric left ventricular hypertrophy is observed. Global left ventricular wall motion and contractility are within normal limits. Global left ventricular systolic function is normal. The estimated ejection fraction is 55-60%. Normal left ventricular diastolic filling is observed. Left Atrium: The left atrium is normal in size with no visual thrombus identified. Right Ventricle: The right ventricular cavity size is normal. The right ventricular global systolic function is normal. Right Atrium: The right atrium appears normal. The interatrial septum appears normal. Aortic Valve: The aortic valve structure is normal. There is no evidence of aortic regurgitation. There is no evidence of aortic stenosis. Mitral Valve: The mitral valve leaflets appear normal. There is no evidence of mitral regurgitation. There is no evidence of mitral stenosis. Tricuspid Valve: The tricuspid valve leaflets are normal. There is no evidence of tricuspid valve regurgitation. There is no tricuspid stenosis. Pulmonic Valve: The pulmonic valve appears normal. There is no evidence of pulmonic regurgitation. There is no pulmonic stenosis. Pericardium: There is no pericardial effusion. Aorta: There is no dilatation of the ascending aorta. There is no dilatation of the aortic arch. There is no dilatation of the descending thoracic aorta. There is no dilatation of the aortic root. Venous: The inferior vena cava is not visualized. Measurements Chambers 2D Name Value Normal Range RVIDd (AP) 2D 2.84 cm (0.9 - 2.6) IVSd (2D) 1.57 cm (0.6 - 1.1) LVPWd (2D) 1.44 cm (0.6 - 1.1) IVS:LVPW ratio (2D) 1.09 ratio - LVIDd (2D) 2.87 cm (3.7 - 5.6) LVIDs (2D) 2 cm (2 - 3.8) LV FS (Teichholz) (2D) 30.3 % - LV FS (cube) (2D) 30.3 % - EF Teichholz (2D) 59.6 % - Ao root diameter (2D) 2.6 cm (2 - 3.7) LA dimension (AP) 2D 2.7 cm (1.9 - 4) LA:Ao ratio (2D) 1.04 ratio - Volumes/Mass Name Value Normal Range LA ESV SP 4CH (MOD) 32 ml - LA ESV SP 2CH (MOD) 21 ml - Diastolic/Systolic Function Name Value Normal Range MV E-wave Vmax 0.59 m/sec - MV A-wave Vmax 0.57 m/sec - MV E:A ratio 1 ratio - LV septal e' Vmax 0.05 m/sec - LV lateral e' Vmax 0.07 m/sec - LV E:e' septal ratio 11.2 ratio - LV E:e' lateral ratio 8.1 ratio - Aortic Valve Name Value Normal Range AV VTI 17.9 cm - AV mean gradient 3 mmHg - LVOT diameter 2.3 cm - LVOT VTI 19.3 cm - LVOT mean gradient 3 mmHg - SV LVOT 80 ml - FELIX (continuity VTI) 4.47 cm2 - Mitral Valve Name Value Normal Range MV PHT 63 msec - MVA (PHT) 3.49 cm2 - Pulmonic Valve/Qp:Qs Name Value Normal Range PV Vmax 0.87 m/sec - PV peak gradient 3 mmHg - Brandt/IV: Voiding Method Urinal IV Catheter Type [Right Hand] Peripheral IV IV Catheter Type [Left INT / Saline Lock Antecubital] Active Medications - Current Medications Current Medications: Generic Name Dose Route Start Last Admin Trade Name Freq PRN Reason Stop Dose Admin Acetaminophen 650 mg 10/25/19 02:53 Tylenol PO Q4H PRN Pain MILD(1-3)/Fever >100.5/ONEAL Dextrose 0 ml 10/25/19 02:53 D50w (25gm) Syringe IV Q30MIN PRN Hypoglycemia Protocol Heparin Sodium/Sodium Chloride 25,000 unit in 500 mls @ 30 mls/hr 10/24/19 23:45 10/26/19 16:52 Heparin/ 0.45% Nacl-25,000 Unit/500 Ml IV 1,200 units/hr TITR LUCERO 24 mls/hr Administration Protocol 1,500 UNITS/HR Insulin Glargine 36 units 10/26/19 22:00 10/26/19 23:57 Lantus SUB-Q 36 units QHS LUCERO Administration Insulin Human Lispro 0 unit 10/25/19 07:30 10/27/19 08:29 Humalog SUB-Q 4 unit ACHS LUCERO Administration Protocol Magnesium Hydroxide 30 ml 10/25/19 02:53 Milk Of Magnesia PO Q4H PRN Constipation Metformin HCl 500 mg 10/26/19 17:00 10/27/19 08:28 Glucophage PO Not Given BIDDIAB LUCERO Morphine Sulfate 2 mg 10/25/19 02:53 Morphine IV Q4H PRN Pain, Moderate (4-6) Ondansetron HCl 4 mg 10/25/19 02:53 Zofran IV Q8H PRN Nausea And Vomiting Sodium Chloride 10 ml 10/25/19 10:00 10/27/19 00:29 Sodium Chloride Flush Syringe 10 Ml IV Not Given BID LUCERO Sodium Chloride 10 ml 10/25/19 02:53 Sodium Chloride Flush Syringe 10 Ml IV PRN PRN LINE FLUSH Nutrition/Malnutrition Assess - Dietary Evaluation Nutrition/Malnutrition Findings: Nutrition Notes Start: 10/25/19 12:07 Freq: Status: Active Protocol: Document 10/25/19 12:07 DANIA (Rec: 10/25/19 12:13 DANIA [id number]) Co-Sign 10/25/19 12:07 LP Nutrition Notes Need for Assessment generated from: MD Order,Education Initial or Follow up Brief Note Current Diagnosis Diabetes Other Pertinent Diagnosis Syncope, Hyperglycemia, Dehydration Current Diet Consistent CHO [place] Body Weight (kg) 0 Subjective/Other Information MD consult for diet edu. Pt reports eating 100% of meals and still feeling hungry. RD gave snack and double meat/ vegetable portions. #1 Nutrition Diagnosis Food and nutrition-related knowledge deficit Etiology inadquate prior DM edication As Evidenced by Signs and Symptoms pt had questions about DM diet Diagnosis Progress(for reassessment Resolved documentation) Nutrition Intervention Teaching Recipient Patient Learning Readiness Good Teaching Methods Discussion Response to Teaching Verbalize understanding Education Handouts Provided Hypo/Hyperglycemia Symptoms DM Edu for T2DM Barriers to Learning No Barriers RD phone number provided Yes Patient aware of follow up options Yes Revisit per MD consult or patient Sign Off request:
[2019-10-27] MEDS: LIDOCAINE 1%/EPINEPHRINE 1:100,000 VIAL (20 ML) INFILTRATI ONE ×3 (10:45→10:57)
[2019-10-27] MEDS: fentaNYL 100 MCG/2 ML INJ ONE ×2 (10:55→11:04)
[2019-10-27] MEDS: MIDAZOLAM 2 MG/2 ML INJ ONE ×2 (10:55→11:04)
[2019-10-27] MEDS: HEPARIN 10,000 UNITS/10 ML VIAL ONE ×2 (11:03→11:14)
[2019-10-27] MEDS ORDERED: HEPARIN 10,000 UNITS/10 ML VIAL ONE (11:17)
--- NOTE | 2019-10-27 12:07 | Post Operative Note ---
Date of procedure: 10/27/19 Pre-op diagnosis: Submassive pulmonary embolism Post-op diagnosis: same Procedure: 1. Ultrasound guided access of the left common femoral vein 2. Selection of the main pulmonary artery with angiography 3. Selection of the right lower lobar pulmonary artery with angiography 4. Percutaneous Flowtriever 24 Fr thrombectomy of the right distal main, and right lower lobar pulmonary artery 5. Selection of the left distal main pulmonary artery with angiography 6. Percutaneous Flowtriever 24 Fr thrombectomy of the left distal main and lower lobar pulmonary artery 7. IVC selection with venography 8. Percutaneous placement of a Lucas infrarenal IVC filter, retrievable Anesthesia: local (w/ conscious sedation) Surgeon: ELAINE FLORES Estimated blood loss: other (240 mL blood aspirated from sheaths) Condition: stable Disposition: other ([facility])
--- NOTE | 2019-10-27 12:07 | Operative Report ---
Operative Report Operative Report: EXAM: 1. Ultrasound guided access of the left common femoral vein 2. Selection of the main pulmonary artery with angiography 3. Selection of the right lower lobar pulmonary artery with angiography 4. Percutaneous Flowtriever 24 Fr thrombectomy of the right distal main, and right lower lobar pulmonary artery 5. Selection of the left distal main pulmonary artery with angiography 6. Percutaneous Flowtriever 24 Fr thrombectomy of the left distal main and lower lobar pulmonary artery 7. IVC selection with venography 8. Percutaneous placement of a Jojo infrarenal IVC filter, retrievable DATE: 10/28/2019 TOOL AND DIE MANAGER: ELAINE FLORES MD INDICATION: Saddle pulmonary embolism with submassive pulmonary embolism with symptoms and right heart strain on CT scan with ratio of right ventricle to left ventricle greater than 1 with bilateral lower extremity DVT. MEDICATIONS: Continuous cardiopulmonary monitoring was performed during this procedure. Please see nursing report for full details. DEVICES: Jojo IVC filter placement, femoral approach Flowtriever 24 CONTRAST: Please see Avionics Test Technician report for full details PROCEDURE: The risks, benefits, and alternatives were discussed; written informed consent was obtained. The patient was prepped and draped in a sterile fashion and both groins were prepped and draped in a sterile fashion. Ultrasound was used to evaluate the right common femoral vein, but there was a large nonocclusive thrombus in the lower portion of the common femoral vein. I then evaluated the left common femoral vein which was patent. Under direct ultrasound guidance, the left common femoral vein was accessed with a 21-gauge micropuncture needle. 0.018 inch wire was passed into the IVC. Needle was exchanged for transitional dilator. Wire was exchanged for a 0.035 inch wire. Transitional dilator was exchanged for a 5 Spanish sheath. Digital subtraction angiography was performed demonstrating patency of the left iliac system and lower IVC. Stiff Amplatz wire was passed into the IVC. Serial dilatation was then performed with ultimate placement of a 24 Spanish Mcclave dry seal sheath. Using a pigtail catheter, the right heart was negotiated and the pigtail catheter was passed into the main pulmonary artery. Digital subtraction angiography was performed demonstrating nonocclusive thrombus in the right lower lobar pulmonary artery and left lower lobar pulmonary artery with each of them extending into the distal main pulmonary artery. The right lower lobar pulmon jun artery was then selected and a Amplatz wire was passed into this vessel. 24 Spanish Flowtriever device was then advanced into the right distal main pulmonary artery and thrombectomy was performed. It was then passed into the right lower lobar pulmonary artery and thrombectomy was performed. Pigtail catheter was advanced to the device and digital subtraction angiography was performed demonstrating clearance of some of the thrombus with improvement of flow. Pigtail catheter was then passed into the left main pulmonary artery and digital subtraction angiography was performed demonstrating the thrombus that was previously noted in more anatomic detail for thrombectomy. 24 Spanish Flowtriever device was then passed into the left lower lobar pulmonary artery/distal main pulmonary artery and thrombectomy was performed. Digital subtraction angiography was performed demonstrating some residual thrombus with improvement in flow. At this point, the Flowtriever device was removed over a wire. 5 Spanish pigtail catheter was advanced over the wire and passed into the inferior vena cava. The table was locked. Digital subtraction venography was performed of the inferior vena cava demonstrates no evidence of inferior vena cava thrombus. The inferior vena cava is normal in size. Renal vein inflow is visualized. The inferior vena cava is adequate to accommodate an IVC filter. The pigtail was removed over a 0.035 inch wire and the sheath was removed over the wire. The IVC filter sheath and introducer were advanced over the wire under direct fluoroscopic guidance. The wire and introducer were removed. The IVC filter deployment system was advanced through the sheath and properly positioned under fluoroscopic guidance. The IVC filter was deployed under direct fluoroscopic guidance. [place] IVC filter is properly positioned, below the renal veins and above the iliocaval confluence. Venography was performed through the sheath to confirm position. The deployment system, and sheath were removed. At this time, all wires, catheters, and sheaths were removed. Pursestring suture was placed along the skin of the 24 Spanish sheath to assist with closure. After 15 minutes, hemostasis was achieved. Pressure dressing was applied. Continuous IV heparin was reinitiated. The patient was transferred from the angiography suite in stable condition. FINDINGS: Please see procedure note above. IMPRESSION: 1. Successful selection of the pulmonary arteries with angiography as described above. 2. Successful thrombectomy of the bilateral pulmonary arteries as described above. 3. Successful selection of the IVC with venography. 4. Successful placement of infrarenal IVC filter. 5. Successful ultrasound-guided access of the left common femoral vein.
[2019-10-27] MEDS ORDERED: SODIUM CHLORIDE 0.9% 1000 ML 1,000 ML IV SCH (13:00)
--- NOTE | 2019-10-27 18:46 | Vascular Lab Report ---
DUPLEX DOPPLER LOWER EXTREMITY VEINS, BILATERAL INDICATION / CLINICAL INFORMATION: Pulmonary embolism.. TECHNIQUE: Duplex doppler imaging was performed through the veins of both lower extremities using venous stephie cheryl and other maneuvers. COMPARISON: None available. FINDINGS: RIGHT COMMON FEMORAL VEIN: Echogenic material is present with lack of compressibility. RIGHT FEMORAL VEIN: Echogenic material is present with lack of compressibility. RIGHT POPLITEAL VEIN: Echogenic material is present with lack of compressibility. RIGHT CALF VEINS: Negative. LEFT COMMON FEMORAL VEIN: Negative. LEFT FEMORAL VEIN: Echogenic material is present with lack of compressibility. LEFT POPLITEAL VEIN: Echogenic material is present with lack of compressibility. LEFT CALF VEINS: Negative. ADDITIONAL FINDINGS: None. IMPRESSION: 1. Bilateral deep venous thrombosis as noted Signer Name: Mat Gonzalez MD Signed: 10/27/2019 6:42 PM Workstation Name: [id number]
[2019-10-27] MEDS: HEPARIN/ 0.45% NACL DRIP 25,000 UNIT/500 ML BAG IV SCH (20:19)
[2019-10-27] MEDS: INSULIN GLARGINE 100 UNITS/ML SUB-Q SCH (22:55)
[2019-10-28 05:31] LABS: Hematocrit 29.5 % (35.5-45.6)
[2019-10-28] MEDS: INSULIN LISPRO 100 UNIT/ML VIAL 3 mL SUB-Q SCH ×4 (07:49→21:57)
--- NOTE | 2019-10-28 09:14 | Progress Note ---
Assessment and Plan Assessment and plan: Pulmonary embolism. Heparin drip. Vascular consult appreciated. Diabetes mellitus type 2. Continue Accu-Cheks and sliding scale insulin. 10/26/2019. Vascular surgery believes that the patient may benefit from nonemergent placement of thrombolytics catheters versus pulmonary thrombectomy to prevent CTEPH. Done yesterday. Continue heparin drip for now until after the procedure and then transition to oral anticoagulation 10/27/2019. Echocardiogram reveals mild to moderate concentric left ventricular hypertrophy with global left ventricular wall motion and contractility within normal limits. EF 55 to 60%. Right ventricular systolic function reported as normal. Vascular surgery to perform nonemergent placement of thrombolytics catheters versus pulmonary thrombectomy to prevent CTEPH. Continue IMCU monitoring. 10/28/2019; Echocardiogram reveals mild to moderate concentric left ventricular hypertrophy with global left ventricular wall motion and contractility within normal limits. EF 55 to 60%. Right ventricular systolic function reported as normal. Vascular surgery to perform nonemergent placement of thrombolytics catheters versus pulmonary thrombectomy to prevent CTEPH. Disposition; transfer to telemetry floor. History Interval history: Patient was seen and evaluated this morning Patient did not have any complaints, saturating well on room air Hospitalist Physical - Physical exam Narrative exam: Not in cardiopulmonary distress. The patient appeared well nourished and normally developed. Vital signs as documented. Head exam is unremarkable. No scleral icterus . Neck is without jugular venous distension, thyromegaly, or carotid bruits. Lungs are clear to auscultation. Cardiac exam reveals regular rate and Rhythm. Abdominal exam reveals normal bowel sounds, nontender, no organomegaly. Extremities are nonedematous and both femoral and pedal pulses are normal. MULTIMEDIA ENGINEER: Alert and oriented 3. No focal weakness. Not in cardiopulmonary distress. - Constitutional Vitals: Temp Pulse Resp BP Pulse Ox 98.7 F 85 11 L 93/51 93 10/28/19 04:00 10/28/19 07:01 10/28/19 07:01 10/28/19 07:01 10/28/19 07:01 General appearance: Present: no acute distress HEART Score - HEART Score Troponin: Troponin T < 0.010 ng/mL (0.00-0.029) 10/24/19 15:17 Results - Labs CBC & Chem 7: 10/28/19 04:52 10/26/19 04:40 Labs: Laboratory Last Values WBC 4.8 K/mm3 (4.5-11.0) 10/26/19 04:40 RBC 4.42 M/mm3 (3.65-5.03) 10/26/19 04:40 Hgb 10.0 gm/dl (11.8-15.2) L 10/28/19 04:52 Hct 29.5 % (35.5-45.6) L 10/28/19 04:52 MCV 79 fl (84-94) L 10/26/19 04:40 MCH 27 pg (28-32) L 10/26/19 04:40 MCHC 34 % (32-34) 10/26/19 04:40 RDW 13.9 % (13.2-15.2) 10/26/19 04:40 Plt Count 157 K/mm3 (140-440) 10/28/19 04:52 Lymph % (Auto) 31.6 % (13.4-35.0) 10/26/19 04:40 [place] % (Auto) 6.1 % (0.0-7.3) 10/26/19 04:40 Eos % (Auto) 3.1 % (0.0-4.3) 10/26/19 04:40 Baso % (Auto) 0.9 % (0.0-1.8) 10/26/19 04:40 Lymph # 1.5 K/mm3 (1.2-5.4) 10/26/19 04:40 [place] # 0.3 K/mm3 (0.0-0.8) 10/26/19 04:40 Eos # 0.1 K/mm3 (0.0-0.4) 10/26/19 04:40 Baso # 0.0 K/mm3 (0.0-0.1) 10/26/19 04:40 Seg Neutrophils % 58.3 % (40.0-70.0) 10/26/19 04:40 Seg Neutrophils # 2.8 K/mm3 (1.8-7.7) 10/26/19 04:40 PT 12.7 Sec. (12.2-14.9) 10/26/19 04:40 INR 0.94 (0.87-1.13) 10/26/19 04:40 APTT 27.8 Sec. (24.2-36.6) 10/24/19 21:24 Fibrinogen 425 mg/dl (211-480) 10/27/19 09:38 D-Dimer 2474.81 ng/mlDDU (0-234) H 10/24/19 21:24 Heparin Anti-Xa Level 0.31 U.I./ml (0.3-0.7) 10/28/19 04:52 Sodium 136 mmol/L (137-145) L 10/26/19 04:40 Potassium 3.9 mmol/L (3.6-5.0) 10/26/19 04:40 Chloride 101.5 mmol/L (98-107) 10/26/19 04:40 Carbon Dioxide 24 mmol/L (22-30) 10/26/19 04:40 Anion Gap 14 mmol/L 10/26/19 04:40 BUN 17 mg/dL (9-20) 10/26/19 04:40 Creatinine 1.0 mg/dL (0.8-1.3) 10/26/19 04:40 Estimated GFR > 60 ml/min 10/26/19 04:40 BUN/Creatinine Ratio 17 % 10/26/19 04:40 Glucose 198 mg/dL (75-100) H 10/26/19 04:40 POC Glucose 200 (70-105) H 10/27/19 21:50 Calcium 8.6 mg/dL (8.4-10.2) 10/26/19 04:40 Total Bilirubin 0.50 mg/dL (0.1-1.2) 10/24/19 15:17 AST 9 units/L (5-40) 10/24/19 15:17 ALT 8 units/L (7-56) 10/24/19 15:17 Alkaline Phosphatase 113 units/L (35-129) 10/24/19 15:17 Total Creatine Kinase 166 units/L (55-170) 10/24/19 21:24 CK-MB (CK-2) 3.7 ng/mL (0.0-4.0) 10/24/19 21:24 CK-MB (CK-2) Rel Index 2.2 (0-4) 10/24/19 21:24 Troponin T < 0.010 ng/mL (0.00-0.029) 10/24/19 15:17 Total Protein 7.1 g/dL (6.3-8.2) 10/24/19 15:17 Albumin 3.4 g/dL (3.9-5) L 10/24/19 15:17 Albumin/Globulin Ratio 0.9 % 10/24/19 15:17 - Diagnostic Impressions Diagnostic Impressions: Echocardiogram 10/25/19 08:51 Transthoracic Echocardiogram Indication: Saddle PE BP: 133/86 Conclusions *Mild to moderate concentric left ventricular hypertrophy is observed. *Global left ventricular wall motion and contractility are within normal limits. *The estimated ejection fraction is 55-60%. *Normal left ventricular diastolic filling is observed. *There is no pericardial effusion. Findings Left Ventricle: The left ventricular chamber size is normal. Mild to moderate concentric left ventricular hypertrophy is observed. Global left ventricular wall motion and contractility are within normal limits. Global left ventricular systolic function is normal. The estimated ejection fraction is 55-60%. Normal left ventricular diastolic filling is observed. Left Atrium: The left atrium is normal in size with no visual thrombus identified. Right Ventricle: The right ventricular cavity size is normal. The right ventricular global systolic function is normal. Right Atrium: The right atrium appears normal. The interatrial septum appears normal. Aortic Valve: The aortic valve structure is normal. There is no evidence of aortic regurgitation. There is no evidence of aortic stenosis. Mitral Valve: The mitral valve leaflets appear normal. There is no evidence of mitral regurgitation. There is no evidence of mitral stenosis. Tricuspid Valve: The tricuspid valve leaflets are normal. There is no evidence of tricuspid valve regurgitation. There is no tricuspid stenosis. Pulmonic Valve: The pulmonic valve appears normal. There is no evidence of pulmonic regurgitation. There is no pulmonic stenosis. Pericardium: There is no pericardial effusion. Aorta: There is no dilatation of the ascending aorta. There is no dilatation of the aortic arch. There is no dilatation of the descending thoracic aorta. There is no dilatation of the aortic root. Venous: The inferior vena cava is not visualized. Measurements Chambers 2D Name Value Normal Range RVIDd (AP) 2D 2.84 cm (0.9 - 2.6) IVSd (2D) 1.57 cm (0.6 - 1.1) LVPWd (2D) 1.44 cm (0.6 - 1.1) IVS:LVPW ratio (2D) 1.09 ratio - LVIDd (2D) 2.87 cm (3.7 - 5.6) LVIDs (2D) 2 cm (2 - 3.8) LV FS (Teichholz) (2D) 30.3 % - LV FS (cube) (2D) 30.3 % - EF Teichholz (2D) 59.6 % - Ao root diameter (2D) 2.6 cm (2 - 3.7) LA dimension (AP) 2D 2.7 cm (1.9 - 4) LA:Ao ratio (2D) 1.04 ratio - Volumes/Mass Name Value Normal Range LA ESV SP 4CH (MOD) 32 ml - LA ESV SP 2CH (MOD) 21 ml - Diastolic/Systolic Function Name Value Normal Range MV E-wave Vmax 0.59 m/sec - MV A-wave Vmax 0.57 m/sec - MV E:A ratio 1 ratio - LV septal e' Vmax 0.05 m/sec - LV lateral e' Vmax 0.07 m/sec - LV E:e' septal ratio 11.2 ratio - LV E:e' lateral ratio 8.1 ratio - Aortic Valve Name Value Normal Range AV VTI 17.9 cm - AV mean gradient 3 mmHg - LVOT diameter 2.3 cm - LVOT VTI 19.3 cm - LVOT mean gradient 3 mmHg - SV LVOT 80 ml - FELIX (continuity VTI) 4.47 cm2 - Mitral Valve Name Value Normal Range MV PHT 63 msec - MVA (PHT) 3.49 cm2 - Pulmonic Valve/Qp:Qs Name Value Normal Range PV Vmax 0.87 m/sec - PV peak gradient 3 mmHg - Brandt/IV: Voiding Method Urinal IV Catheter Type [Right Hand] Peripheral IV IV Catheter Type [Left INT / Saline Lock Antecubital] Active Medications - Current Medications Current Medications: Generic Name Dose Route Start Last Admin Trade Name Freq PRN Reason Stop Dose Admin Acetaminophen 650 mg 10/25/19 02:53 10/27/19 20:13 Tylenol PO 650 mg Q4H PRN Administration Pain MILD(1-3)/Fever >100.5/ONEAL Dextrose 0 ml 10/25/19 02:53 D50w (25gm) Syringe IV Q30MIN PRN Hypoglycemia Protocol Heparin Sodium/Sodium Chloride 25,000 unit in 500 mls @ 30 mls/hr 10/24/19 23:45 10/28/19 06:41 Heparin/ 0.45% Nacl-25,000 Unit/500 Ml IV 1,300 units/hr TITR LUCERO 26 mls/hr Titration Protocol 1,500 UNITS/HR Sodium Chloride 1,000 mls @ 150 mls/hr 10/27/19 13:00 10/27/19 15:25 Nacl 0.9% 1000 Ml IV 150 mls/hr DIRECT LUCERO Administration Insulin Glargine 36 units 10/26/19 22:00 10/27/19 22:55 Lantus SUB-Q 36 units QHS LUCERO Administration Insulin Human Lispro 0 unit 10/25/19 07:30 10/28/19 07:49 Humalog SUB-Q Not Given ACHS LUCERO Protocol Magnesium Hydroxide 30 ml 10/25/19 02:53 Milk Of Magnesia PO Q4H PRN Constipation Metformin HCl 500 mg 10/26/19 17:00 10/27/19 16:02 Glucophage PO 500 mg BIDDIAB LUCERO Administration Morphine Sulfate 2 mg 10/25/19 02:53 Morphine IV Q4H PRN Pain, Moderate (4-6) Ondansetron HCl 4 mg 10/25/19 02:53 Zofran IV Q8H PRN Nausea And Vomiting Sodium Chloride 10 ml 10/25/19 10:00 10/27/19 22:55 Sodium Chloride Flush Syringe 10 Ml IV 10 ml BID LUCERO Administration Sodium Chloride 10 ml 10/25/19 02:53 Sodium Chloride Flush Syringe 10 Ml IV PRN PRN LINE FLUSH Nutrition/Malnutrition Assess - Dietary Evaluation Nutrition/Malnutrition Findings: Nutrition Notes Start: 10/25/19 12:07 Freq: Status: Active Protocol: Document 10/25/19 12:07 DANIA (Rec: 10/25/19 12:13 DANIA [id number]) Co-Sign 10/25/19 12:07 LP Nutrition Notes Need for Assessment generated from: MD Order,Education Initial or Follow up Brief Note Current Diagnosis Diabetes Other Pertinent Diagnosis Syncope, Hyperglycemia, Dehydration Current Diet Consistent CHO [place] Body Weight (kg) 0 Subjective/Other Information MD consult for diet edu. Pt reports eating 100% of meals and still feeling hungry. RD gave snack and double meat/ vegetable portions. #1 Nutrition Diagnosis Food and nutrition-related knowledge deficit Etiology inadquate prior DM edication As Evidenced by Signs and Symptoms pt had questions about DM diet Diagnosis Progress(for reassessment Resolved documentation) Nutrition Intervention Teaching Recipient Patient Learning Readiness Good Teaching Methods Discussion Response to Teaching Verbalize understanding Education Handouts Provided Hypo/Hyperglycemia Symptoms DM Edu for T2DM Barriers to Learning No Barriers RD phone number provided Yes Patient aware of follow up options Yes Revisit per MD consult or patient Sign Off request:
[2019-10-28] MEDS: metFORMIN 500 MG TAB PO SCH ×2 (10:01→17:17)
[2019-10-28] MEDS ORDERED: REGADENOSON 0.4 MG/5 ML INJ IV ONE (13:01)
[2019-10-28] MEDS: APIXABAN 5 MG TAB PO SCH ×2 (17:15→21:57)
[2019-10-28] MEDS: INSULIN GLARGINE 100 UNITS/ML SUB-Q SCH (21:55)
[2019-10-29] MEDS ORDERED: SODIUM CHLORIDE 0.9% 500 ML 500 ML IV ONE (04:03)
[2019-10-29] MEDS: SODIUM CHLORIDE 0.9% 1000 ML 1,000 ML IV SCH (04:52)
[2019-10-29 06:06] LABS: Basophils % (Auto) 0.3 % (0.0-1.8); Eosinophils # (Auto) 0.1 K/mm3 (0.0-0.4); Eosinophils % (Auto) 1.3 % (0.0-4.3); Hemoglobin 10.1 gm/dl (11.8-15.2); Lymphocytes % (Auto) 11.1 % (13.4-35.0); Mean Corpuscular HGB Conc 34 % (32-34); Mean Corpuscular Volume 79 fl (84-94); Monocytes # (Auto) 0.6 K/mm3 (0.0-0.8); Monocytes % (Auto) 7.3 % (0.0-7.3); Platelet Count 160 K/mm3 (140-440); Red Blood Count 3.81 M/mm3 (3.65-5.03); Red Cell Distribution Width 14.8 % (13.2-15.2)
[2019-10-29 06:18] LABS: BUN/Creatinine Ratio 14; Blood Urea Nitrogen 15 mg/dL (9-20); Calcium 8.2 mg/dL (8.4-10.2); Hemolysis Index 0
--- NOTE | 2019-10-29 09:20 | Progress Note ---
Assessment and Plan Assessment and plan: Pulmonary embolism. Heparin drip. Vascular consult appreciated. Diabetes mellitus type 2. Continue Accu-Cheks and sliding scale insulin. 10/26/2019. Vascular surgery believes that the patient may benefit from nonemergent placement of thrombolytics catheters versus pulmonary thrombectomy to prevent CTEPH. Done yesterday. Continue heparin drip for now until after the procedure and then transition to oral anticoagulation 10/27/2019. Echocardiogram reveals mild to moderate concentric left ventricular hypertrophy with global left ventricular wall motion and contractility within normal limits. EF 55 to 60%. Right ventricular systolic function reported as normal. Vascular surgery to perform nonemergent placement of thrombolytics catheters versus pulmonary thrombectomy to prevent CTEPH. Continue IMCU monitoring. 10/28/2019; Echocardiogram reveals mild to moderate concentric left ventricular hypertrophy with global left ventricular wall motion and contractility within normal limits. EF 55 to 60%. Right ventricular systolic function reported as normal. Vascular surgery to perform nonemergent placement of thrombolytics catheters versus pulmonary thrombectomy to prevent CTEPH. 10/29/2019; patient has hypertension and near syncope, dizziness. I put the patient on IV fluids will monitor. Disposition; transfer to telemetry floor. History Interval history: Patient was seen and evaluated this morning Patient did not have any complaints, saturating well on room air Blood pressure is low, patient has dizziness Hospitalist Physical - Physical exam Narrative exam: Not in cardiopulmonary distress. The patient appeared well nourished and normally developed. Vital signs as documented. Head exam is unremarkable. No scleral icterus . Neck is without jugular venous distension, thyromegaly, or carotid bruits. Lungs are clear to auscultation. Cardiac exam reveals regular rate and Rhythm. Abdominal exam reveals normal bowel sounds, nontender, no organomegaly. Extremities are nonedematous and both femoral and pedal pulses are normal. LOSS PREVENTION AGENT: Alert and oriented 3. No focal weakness. Not in cardiopulmonary distress. - Constitutional Vitals: Temp Pulse Resp BP Pulse Ox 98.6 F 92 H 18 86/46 96 10/29/19 07:52 10/29/19 07:52 10/29/19 07:52 10/29/19 07:52 10/29/19 07:52 General appearance: Present: no acute distress HEART Score - HEART Score Troponin: Troponin T < 0.010 ng/mL (0.00-0.029) 10/24/19 15:17 Results - Labs CBC & Chem 7: 10/29/19 04:29 10/29/19 04:29 Labs: Laboratory Last Values WBC 8.9 K/mm3 (4.5-11.0) 10/29/19 04:29 RBC 3.81 M/mm3 (3.65-5.03) 10/29/19 04:29 Hgb 10.1 gm/dl (11.8-15.2) L 10/29/19 04:29 Hct 30.0 % (35.5-45.6) L 10/29/19 04:29 MCV 79 fl (84-94) L 10/29/19 04:29 MCH 27 pg (28-32) L 10/29/19 04: MCHC 34 % (32-34) 10/29/19 04:29 RDW 14.8 % (13.2-15.2) 10/29/19 04:29 Plt Count 160 K/mm3 (140-440) 10/29/19 04:29 Lymph % (Auto) 11.1 % (13.4-35.0) L 10/29/19 04:29 [place] % (Auto) 7.3 % (0.0-7.3) 10/29/19 04:29 Eos % (Auto) 1.3 % (0.0-4.3) 10/29/19 04:29 Baso % (Auto) 0.3 % (0.0-1.8) 10/29/19 04:29 Lymph # (Auto) 1.0 K/mm3 (1.2-5.4) L 10/29/19 04:29 [place] # (Auto) 0.6 K/mm3 (0.0-0.8) 10/29/19 04:29 Eos # (Auto) 0.1 K/mm3 (0.0-0.4) 10/29/19 04:29 Baso # (Auto) 0.0 K/mm3 (0.0-0.1) 10/29/19 04:29 Seg Neutrophils % 80.0 % (40.0-70.0) H 10/29/19 04:29 Seg Neutrophils # 7.1 K/mm3 (1.8-7.7) 10/29/19 04:29 PT 12.7 Sec. (12.2-14.9) 10/26/19 04:40 INR 0.94 (0.87-1.13) 10/26/19 04:40 APTT 27.8 Sec. (24.2-36.6) 10/24/19 21:24 Fibrinogen 425 mg/dl (211-480) 10/27/19 09:38 D-Dimer 2474.81 ng/mlDDU (0-234) H 10/24/19 21:24 Heparin Anti-Xa Level 2.00 U.I./ml (0.3-0.7) H 10/29/19 04:29 Sodium 137 mmol/L (137-145) 10/29/19 04:29 Potassium 3.4 mmol/L (3.6-5.0) L 10/29/19 04:29 Chloride 103.7 mmol/L (98-107) 10/29/19 04:29 Carbon Dioxide 21 mmol/L (22-30) L 10/29/19 04:29 Anion Gap 16 mmol/L 10/29/19 04:29 BUN 15 mg/dL (9-20) 10/29/19 04:29 Creatinine 1.1 mg/dL (0.8-1.3) 10/29/19 04:29 Estimated GFR > 60 ml/min 10/29/19 04:29 BUN/Creatinine Ratio 14 % 10/29/19 04:29 Glucose 101 mg/dL (75-100) H 10/29/19 04:29 POC Glucose 157 (70-105) H 10/28/19 21:30 Calcium 8.2 mg/dL (8.4-10.2) L 10/29/19 04:29 Total Bilirubin 0.50 mg/dL (0.1-1.2) 10/24/19 15:17 AST 9 units/L (5-40) 10/24/19 15:17 ALT 8 units/L (7-56) 10/24/19 15:17 Alkaline Phosphatase 113 units/L (35-129) 10/24/19 15:17 Total Creatine Kinase 166 units/L (55-170) 10/24/19 21:24 CK-MB (CK-2) 3.7 ng/mL (0.0-4.0) 10/24/19 21:24 CK-MB (CK-2) Rel Index 2.2 (0-4) 10/24/19 21:24 Troponin T < 0.010 ng/mL (0.00-0.029) 10/24/19 15:17 Total Protein 7.1 g/dL (6.3-8.2) 10/24/19 15:17 Albumin 3.4 g/dL (3.9-5) L 10/24/19 15:17 Albumin/Globulin Ratio 0.9 % 10/24/19 15:17 - Diagnostic Impressions Diagnostic Impressions: Echocardiogram 10/25/19 08:51 Transthoracic Echocardiogram Indication: Saddle PE BP: 133/86 Conclusions *Mild to moderate concentric left ventricular hypertrophy is observed. *Global left ventricular wall motion and contractility are within normal limits. *The estimated ejection fraction is 55-60%. *Normal left ventricular diastolic filling is observed. *There is no pericardial effusion. Findings Left Ventricle: The left ventricular chamber size is normal. Mild to moderate concentric left ventricular hypertrophy is observed. Global left ventricular wall motion and contractility are within normal limits. Global left ventricular systolic function is normal. The estimated ejection fraction is 55-60%. Normal left ventricular diastolic filling is observed. Left Atrium: The left atrium is normal in size with no visual thrombus identified. Right Ventricle: The right ventricular cavity size is normal. The right ventricular global systolic function is normal. Right Atrium: The right atrium appears normal. The interatrial septum appears normal. Aortic Valve: The aortic valve structure is normal. There is no evidence of aortic regurgitation. There is no evidence of aortic stenosis. Mitral Valve: The mitral valve leaflets appear normal. There is no evidence of mitral regurgitation. There is no evidence of mitral stenosis. Tricuspid Valve: The tricuspid valve leaflets are normal. There is no evidence of tricuspid valve regurgitation. There is no tricuspid stenosis. Pulmonic Valve: The pulmonic valve appears normal. There is no evidence of pulmonic regurgitation. There is no pulmonic stenosis. Pericardium: There is no pericardial effusion. Aorta: There is no dilatation of the ascending aorta. There is no dilatation of the aortic arch. There is no dilatation of the descending thoracic aorta. There is no dilatation of the aortic root. Venous: The inferior vena cava is not visualized. Measurements Chambers 2D Name Value Normal Range RVIDd (AP) 2D 2.84 cm (0.9 - 2.6) IVSd (2D) 1.57 cm (0.6 - 1.1) LVPWd (2D) 1.44 cm (0.6 - 1.1) IVS:LVPW ratio (2D) 1.09 ratio - LVIDd (2D) 2.87 cm (3.7 - 5.6) LVIDs (2D) 2 cm (2 - 3.8) LV FS (Teichholz) (2D) 30.3 % - LV FS (cube) (2D) 30.3 % - EF Teichholz (2D) 59.6 % - Ao root diameter (2D) 2.6 cm (2 - 3.7) LA dimension (AP) 2D 2.7 cm (1.9 - 4) LA:Ao ratio (2D) 1.04 ratio - Volumes/Mass Name Value Normal Range LA ESV SP 4CH (MOD) 32 ml - LA ESV SP 2CH (MOD) 21 ml - Diastolic/Systolic Function Name Value Normal Range MV E-wave Vmax 0.59 m/sec - MV A-wave Vmax 0.57 m/sec - MV E:A ratio 1 ratio - LV septal e' Vmax 0.05 m/sec - LV lateral e' Vmax 0.07 m/sec - LV E:e' septal ratio 11.2 ratio - LV E:e' lateral ratio 8.1 ratio - Aortic Valve Name Value Normal Range AV VTI 17.9 cm - AV mean gradient 3 mmHg - LVOT diameter 2.3 cm - LVOT VTI 19.3 cm - LVOT mean gradient 3 mmHg - SV LVOT 80 ml - FELIX (continuity VTI) 4.47 cm2 - Mitral Valve Name Value Normal Range MV PHT 63 msec - MVA (PHT) 3.49 cm2 - Pulmonic Valve/Qp:Qs Name Value Normal Range PV Vmax 0.87 m/sec - PV peak gradient 3 mmHg - Brandt/IV: Voiding Method Urinal IV Catheter Type [Right Hand] Peripheral IV IV Catheter Type [Left INT / Saline Lock Antecubital] Active Medications - Current Medications Current Medications: Generic Name Dose Route Start Last Admin Trade Name Freq PRN Reason Stop Dose Admin Acetaminophen 650 mg 10/25/19 02:53 10/27/19 20:13 Tylenol PO 650 mg Q4H PRN Administration Pain MILD(1-3)/Fever >100.5/ONEAL Apixaban 10 mg 10/28/19 16:00 10/28/19 21:57 Eliquis PO 10 mg Q12HR LUCERO Administration Protocol Dextrose 0 ml 10/25/19 02:53 D50w (25gm) Syringe IV Q30MIN PRN Hypoglycemia Protocol Sodium Chloride 1,000 mls @ 125 mls/hr 10/29/19 04:45 10/29/19 04:52 Nacl 0.9% 1000 Ml IV 125 mls/hr DIRECT LUCERO Administration Insulin Glargine 36 units 10/26/19 22:00 10/28/19 21:55 Lantus SUB-Q Not Given QHS LUCERO Insulin Human Lispro 0 unit 10/25/19 07:30 10/28/19 21:57 Humalog SUB-Q 2 unit ACHS LUCERO Administration Protocol Magnesium Hydroxide 30 ml 10/25/19 02:53 Milk Of Magnesia PO Q4H PRN Constipation Metformin HCl 500 mg 10/26/19 17:00 10/28/19 17:17 Glucophage PO 500 mg BIDDIAB LUCERO Administration Morphine Sulfate 2 mg 10/25/19 02:53 Morphine IV Q4H PRN Pain, Moderate (4-6) Ondansetron HCl 4 mg 10/25/19 02:53 Zofran IV Q8H PRN Nausea And Vomiting Sodium Chloride 10 ml 10/25/19 10:00 10/28/19 21:57 Sodium Chloride Flush Syringe 10 Ml IV 10 ml BID LUCERO Administration Sodium Chloride 10 ml 10/25/19 02:53 Sodium Chloride Flush Syringe 10 Ml IV PRN PRN LINE FLUSH Nutrition/Malnutrition Assess - Dietary Evaluation Nutrition/Malnutrition Findings: Nutrition Notes Start: 10/25/19 12:07 Freq: Status: Active Protocol: Document 10/25/19 12:07 DANIA (Rec: 10/25/19 12:13 DANIA [id number]) Co-Sign 10/25/19 12:07 LP Nutrition Notes Need for Assessment generated from: MD Order,Education Initial or Follow up Brief Note Current Diagnosis Diabetes Other Pertinent Diagnosis Syncope, Hyperglycemia, Dehydration Current Diet Consistent CHO [place] Body Weight (kg) 0 Subjective/Other Information MD consult for diet edu. Pt reports eating 100% of meals and still feeling hungry. RD gave snack and double meat/ vegetable portions. #1 Nutrition Diagnosis Food and nutrition-related knowledge deficit Etiology inadquate prior DM edication As Evidenced by Signs and Symptoms pt had questions about DM diet Diagnosis Progress(for reassessment Resolved documentation) Nutrition Intervention Teaching Recipient Patient Learning Readiness Good Teaching Methods Discussion Response to Teaching Verbalize understanding Education Handouts Provided Hypo/Hyperglycemia Symptoms DM Edu for T2DM Barriers to Learning No Barriers RD phone number provided Yes Patient aware of follow up options Yes Revisit per MD consult or patient Sign Off request:
[2019-10-29] MEDS: APIXABAN 5 MG TAB PO SCH ×2 (09:40→22:09)
[2019-10-29] MEDS: metFORMIN 500 MG TAB PO SCH ×2 (09:40→17:29)
[2019-10-29] MEDS: INSULIN LISPRO 100 UNIT/ML VIAL 3 mL SUB-Q SCH ×4 (09:58→22:10)
--- NOTE | 2019-10-29 11:51 | Progress Note ---
Assessment and Plan Doing well Suture was removed from left groin and Dermabond placed Recommend oral anticoagulation for life Follow up with Dr Aguiar in 2 weeks Okay to discharge when medically cleared Subjective Date of service: 10/29/19 Interval history: No complaints Objective - Constitutional Vitals: Vital Signs - 12hr 10/29/19 10/29/19 10/29/19 00:00 03:38 04:00 Temperature 99.0 F Pulse Rate 100 H 95 H 90 Respiratory 18 Rate Blood Pressure 87/50 Blood Pressure [Right] O2 Sat by Pulse 98 Oximetry 10/29/19 10/29/19 05:05 07:52 Temperature 98.6 F Pulse Rate 90 92 H Respiratory 18 18 Rate Blood Pressure 86/46 Blood Pressure 98/57 [Right] O2 Sat by Pulse 96 Oximetry General appearance: Present: no acute distress Extremities: abnormal (Left groin site is without hematoma) - Labs CBC & Chem 7: 10/29/19 04:29 10/29/19 04:29 Labs: Abnormal lab results 10/28/19 10/28/19 10/28/19 Range/Units 07:55 12:01 17:26 Hgb (11.8-15.2) gm/dl Hct (35.5-45.6) % MCV (84-94) fl MCH (28-32) pg Lymph % (Auto) (13.4-35.0) % Lymph # (Auto) (1.2-5.4) K/mm3 Seg Neutrophils % (40.0-70.0) % Heparin Anti-Xa Level (0.3-0.7) U.I./ml Potassium (3.6-5.0) mmol/L Carbon Dioxide (22-30) mmol/L Glucose (75-100) mg/dL POC Glucose 109 H 148 H 133 H (70-105) Calcium (8.4-10.2) mg/dL 10/28/19 10/29/19 10/29/19 Range/Units 21:30 04:29 04:29 Hgb 10.1 L (11.8-15.2) gm/dl Hct 30.0 L (35.5-45.6) % MCV 79 L (84-94) fl MCH 27 L (28-32) pg Lymph % (Auto) 11.1 L (13.4-35.0) % Lymph # (Auto) 1.0 L (1.2-5.4) K/mm3 Seg Neutrophils % 80.0 H (40.0-70.0) % Heparin Anti-Xa Level 2.00 H (0.3-0.7) U.I./ml Potassium (3.6-5.0) mmol/L Carbon Dioxide (22-30) mmol/L Glucose (75-100) mg/dL POC Glucose 157 H (70-105) Calcium (8.4-10.2) mg/dL 10/29/19 10/29/19 Range/Units 04:29 10:10 Hgb (11.8-15.2) gm/dl Hct (35.5-45.6) % MCV (84-94) fl MCH (28-32) pg Lymph % (Auto) (13.4-35.0) % Lymph # (Auto) (1.2-5.4) K/mm3 Seg Neutrophils % (40.0-70.0) % Heparin Anti-Xa Level (0.3-0.7) U.I./ml Potassium 3.4 L (3.6-5.0) mmol/L Carbon Dioxide 21 L (22-30) mmol/L Glucose 101 H (75-100) mg/dL POC Glucose 125 H (70-105) Calcium 8.2 L (8.4-10.2) mg/dL Medications & Allergies - Medications Allergies/Adverse Reactions: Allergies No Known Allergies Allergy (Verified 11/07/14 03:53) Home Medications: Home Medications Medication Instructions Recorded Confirmed Last Taken Type metFORMIN [Glucophage] 500 mg PO BID 04/21/15 10/25/19 Unknown History Insulin Glargine [Lantus VIAL] 36 unit SUB-Q QHS 10/25/19 10/25/19 Unknown History Active Medications: Generic Name Dose Route Start Last Admin Trade Name Freq PRN Reason Stop Dose Admin Acetaminophen 650 mg 10/25/19 02:53 10/27/19 20:13 Tylenol PO 650 mg Q4H PRN Administration Pain MILD(1-3)/Fever >100.5/ONEAL Apixaban 10 mg 10/28/19 16:00 10/29/19 09:40 Eliquis PO 11/03/19 22:01 10 mg Q12HR LUCERO Administration Protocol Dextrose 0 ml 10/25/19 02:53 D50w (25gm) Syringe IV Q30MIN PRN Hypoglycemia Protocol Sodium Chloride 1,000 mls @ 125 mls/hr 10/29/19 04:45 10/29/19 04:52 Nacl 0.9% 1000 Ml IV 125 mls/hr DIRECT LUCERO Administration Insulin Glargine 36 units 10/26/19 22:00 10/28/19 21:55 Lantus SUB-Q Not Given QHS LUCERO Insulin Human Lispro 0 unit 10/25/19 07:30 10/29/19 09:58 Humalog SUB-Q Not Given ACHS [facility] Protocol Magnesium Hydroxide 30 ml 10/25/19 02:53 Milk Of Magnesia PO Q4H PRN Constipation Metformin HCl 500 mg 10/26/19 17:00 10/29/19 09:40 Glucophage PO 500 mg BIDDIAB LUCERO Administration Morphine Sulfate 2 mg 10/25/19 02:53 Morphine IV Q4H PRN Pain, Moderate (4-6) Ondansetron HCl 4 mg 10/25/19 02:53 Zofran IV Q8H PRN Nausea And Vomiting Sodium Chloride 10 ml 10/25/19 10:00 10/28/19 21:57 Sodium Chloride Flush Syringe 10 Ml IV 10 ml BID LUCERO Administration Sodium Chloride 10 ml 10/25/19 02:53 Sodium Chloride Flush Syringe 10 Ml IV PRN PRN LINE FLUSH HEART Score - HEART Score Troponin: Troponin T < 0.010 ng/mL (0.00-0.029) 10/24/19 15:17
[2019-10-29] MEDS: INSULIN GLARGINE 100 UNITS/ML SUB-Q SCH (22:10)
[2019-10-30 06:24] LABS: Hematocrit 28.1 % (35.5-45.6); Hemoglobin 9.3 gm/dl (11.8-15.2)
--- NOTE | 2019-10-30 08:18 | Progress Note ---
Assessment and Plan Assessment and plan: Pulmonary embolism. Heparin drip. Vascular consult appreciated. Diabetes mellitus type 2. Continue Accu-Cheks and sliding scale insulin. 10/26/2019. Vascular surgery believes that the patient may benefit from nonemergent placement of thrombolytics catheters versus pulmonary thrombectomy to prevent CTEPH. Done yesterday. Continue heparin drip for now until after the procedure and then transition to oral anticoagulation 10/27/2019. Echocardiogram reveals mild to moderate concentric left ventricular hypertrophy with global left ventricular wall motion and contractility within normal limits. EF 55 to 60%. Right ventricular systolic function reported as normal. Vascular surgery to perform nonemergent placement of thrombolytics catheters versus pulmonary thrombectomy to prevent CTEPH. Continue IMCU monitoring. 10/28/2019; Echocardiogram reveals mild to moderate concentric left ventricular hypertrophy with global left ventricular wall motion and contractility within normal limits. EF 55 to 60%. Right ventricular systolic function reported as normal. Vascular surgery to perform nonemergent placement of thrombolytics catheters versus pulmonary thrombectomy to prevent CTEPH. 10/29/2019; patient has hypotension and near syncope, dizziness. I put the patient on IV fluids will monitor. ; patient's blood pressure reading from this morning is normal. Going to hold IV fluids and do physical therapy. Blood pressure is stable and no symptoms while on physical therapy patient can be discharged home today with p.o. Eliquis. IV heparin was changed to p.o. Eliquis yesterday. Patient is status post thrombectomy by interventional radiology. History Interval history: Patient was seen and evaluated this morning Patient did not have any complaints, saturating well on room air Blood pressure readings from this morning is normal Hospitalist Physical - Physical exam Narrative exam: Not in cardiopulmonary distress. The patient appeared well nourished and normally developed. Vital signs as documented. Head exam is unremarkable. No scleral icterus . Neck is without jugular venous distension, thyromegaly, or carotid bruits. Lungs are clear to auscultation. Cardiac exam reveals regular rate and Rhythm. Abdominal exam reveals normal bowel sounds, nontender, no organomegaly. Extremities are nonedematous and both femoral and pedal pulses are normal. 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 No focal weakness. Not in cardiopulmonary distress. - Constitutional Vitals: Temp Pulse Resp BP Pulse Ox 98.7 F 82 18 114/78 95 10/30/19 07:33 10/30/19 07:33 10/30/19 07:33 10/30/19 07:33 10/30/19 07:33 General appearance: Present: no acute distress HEART Score - HEART Score Troponin: Troponin T < 0.010 ng/mL (0.00-0.029) 10/24/19 15:17 Results - Labs CBC & Chem 7: 10/30/19 06:03 10/29/19 04:29 Labs: Laboratory Last Values WBC 8.9 K/mm3 (4.5-11.0) 10/29/19 04:29 RBC 3.81 M/mm3 (3.65-5.03) 10/29/19 04:29 Hgb 9.3 gm/dl (11.8-15.2) L 10/30/19 06:03 Hct 28.1 % (35.5-45.6) L 10/30/19 06:03 MCV 79 fl (84-94) L 10/29/19 04:29 MCH 27 pg (28-32) L 10/29/19 04:29 MCHC 34 % (32-34) 10/29/19 04:29 RDW 14.8 % (13.2-15.2) 10/29/19 04:29 Plt Count 150 K/mm3 (140-440) 10/30/19 06:03 Lymph % (Auto) 11.1 % (13.4-35.0) L 10/29/19 04:29 [place] % (Auto) 7.3 % (0.0-7.3) 10/29/19 04:29 Eos % (Auto) 1.3 % (0.0-4.3) 10/29/19 04:29 Baso % (Auto) 0.3 % (0.0-1.8) 10/29/19 04:29 Lymph # (Auto) 1.0 K/mm3 (1.2-5.4) L 10/29/19 04:29 [place] # (Auto) 0.6 K/mm3 (0.0-0.8) 10/29/19 04:29 Eos # (Auto) 0.1 K/mm3 (0.0-0.4) 10/29/19 04:29 Baso # (Auto) 0.0 K/mm3 (0.0-0.1) 10/29/19 04:29 Seg Neutrophils % 80.0 % (40.0-70.0) H 10/29/19 04:29 Seg Neutrophils # 7.1 K/mm3 (1.8-7.7) 10/29/19 04:29 PT 12.7 Sec. (12.2-14.9) 10/26/19 04:40 INR 0.94 (0.87-1.13) 10/26/19 04:40 APTT 27.8 Sec. (24.2-36.6) 10/24/19 21:24 Fibrinogen 425 mg/dl (211-480) 10/27/19 09:38 D-Dimer 2474.81 ng/mlDDU (0-234) H 10/24/19 21:24 Heparin Anti-Xa Level 2.00 U.I./ml (0.3-0.7) H 10/29/19 04:29 Sodium 137 mmol/L (137-145) 10/29/19 04:29 Potassium 3.4 mmol/L (3.6-5.0) L 10/29/19 04:29 Chloride 103.7 mmol/L (98-107) 10/29/19 04:29 Carbon Dioxide 21 mmol/L (22-30) L 10/29/19 04:29 Anion Gap 16 mmol/L 10/29/19 04:29 BUN 15 mg/dL (9-20) 10/29/19 04:29 Creatinine 1.1 mg/dL (0.8-1.3) 10/29/19 04:29 Estimated GFR > 60 ml/min 10/29/19 04:29 BUN/Creatinine Ratio 14 % 10/29/19 04:29 Glucose 101 mg/dL (75-100) H 10/29/19 04:29 POC Glucose 152 (70-105) H 10/30/19 07:48 Calcium 8.2 mg/dL (8.4-10.2) L 10/29/19 04:29 Total Bilirubin 0.50 mg/dL (0.1-1.2) 10/24/19 15:17 AST 9 units/L (5-40) 10/24/19 15:17 ALT 8 units/L (7-56) 10/24/19 15:17 Alkaline Phosphatase 113 units/L (35-129) 10/24/19 15:17 Total Creatine Kinase 166 units/L (55-170) 10/24/19 21:24 CK-MB (CK-2) 3.7 ng/mL (0.0-4.0) 10/24/19 21:24 CK-MB (CK-2) Rel Index 2.2 (0-4) 10/24/19 21:24 Troponin T < 0.010 ng/mL (0.00-0.029) 10/24/19 15:17 Total Protein 7.1 g/dL (6.3-8.2) 10/24/19 15:17 Albumin 3.4 g/dL (3.9-5) L 10/24/19 15:17 Albumin/Globulin Ratio 0.9 % 10/24/19 15:17 - Diagnostic Impressions Diagnostic Impressions: Echocardiogram 10/25/19 08:51 Transthoracic Echocardiogram Indication: Saddle PE BP: 133/86 Conclusions *Mild to moderate concentric left ventricular hypertrophy is observed. *Global left ventricular wall motion and contractility are within normal limits. *The estimated ejection fraction is 55-60%. *Normal left ventricular diastolic filling is observed. *There is no pericardial effusion. Findings Left Ventricle: The left ventricular chamber size is normal. Mild to moderate concentric left ventricular hypertrophy is observed. Global left ventricular wall motion and contractility are within normal limits. Global left ventricular systolic function is normal. The estimated ejection fraction is 55-60%. Normal left ventricular diastolic filling is observed. Left Atrium: The left atrium is normal in size with no visual thrombus identified. Right Ventricle: The right ventricular cavity size is normal. The right ventricular global systolic function is normal. Right Atrium: The right atrium appears normal. The interatrial septum appears normal. Aortic Valve: The aortic valve structure is normal. There is no evidence of aortic regurgitation. There is no evidence of aortic stenosis. Mitral Valve: The mitral valve leaflets appear normal. There is no evidence of mitral regurgitation. There is no evidence of mitral stenosis. Tricuspid Valve: The tricuspid valve leaflets are normal. There is no evidence of tricuspid valve regurgitation. There is no tricuspid stenosis. Pulmonic Valve: The pulmonic valve appears normal. There is no evidence of pulmonic regurgitation. There is no pulmonic stenosis. Pericardium: There is no pericardial effusion. Aorta: There is no dilatation of the ascending aorta. There is no dilatation of the aortic arch. There is no dilatation of the descending thoracic aorta. There is no dilatation of the aortic root. Venous: The inferior vena cava is not visualized. Measurements Chambers 2D Name Value Normal Range RVIDd (AP) 2D 2.84 cm (0.9 - 2.6) IVSd (2D) 1.57 cm (0.6 - 1.1) LVPWd (2D) 1.44 cm (0.6 - 1.1) IVS:LVPW ratio (2D) 1.09 ratio - LVIDd (2D) 2.87 cm (3.7 - 5.6) LVIDs (2D) 2 cm (2 - 3.8) LV FS (Teichholz) (2D) 30.3 % - LV FS (cube) (2D) 30.3 % - EF Teichholz (2D) 59.6 % - Ao root diameter (2D) 2.6 cm (2 - 3.7) LA dimension (AP) 2D 2.7 cm (1.9 - 4) LA:Ao ratio (2D) 1.04 ratio - Volumes/Mass Name Value Normal Range LA ESV SP 4CH (MOD) 32 ml - LA ESV SP 2CH (MOD) 21 ml - Diastolic/Systolic Function Name Value Normal Range MV E-wave Vmax 0.59 m/sec - MV A-wave Vmax 0.57 m/sec - MV E:A ratio 1 ratio - LV septal e' Vmax 0.05 m/sec - LV lateral e' Vmax 0.07 m/sec - LV E:e' septal ratio 11.2 ratio - LV E:e' lateral ratio 8.1 ratio - Aortic Valve Name Value Normal Range AV VTI 17.9 cm - AV mean gradient 3 mmHg - LVOT diameter 2.3 cm - LVOT VTI 19.3 cm - LVOT mean gradient 3 mmHg - SV LVOT 80 ml - FELIX (continuity VTI) 4.47 cm2 - Mitral Valve Name Value Normal Range MV PHT 63 msec - MVA (PHT) 3.49 cm2 - Pulmonic Valve/Qp:Qs Name Value Normal Range PV Vmax 0.87 m/sec - PV peak gradient 3 mmHg - Brandt/IV: Voiding Method Urinal IV Catheter Type [Right Hand] Peripheral IV IV Catheter Type [Left INT / Saline Lock Antecubital] Active Medications - Current Medications Current Medications: Generic Name Dose Route Start Last Admin Trade Name Freq PRN Reason Stop Dose Admin Acetaminophen 650 mg 10/25/19 02:53 10/27/19 20:13 Tylenol PO 650 mg Q4H PRN Administration Pain MILD(1-3)/Fever >100.5/ONEAL Apixaban 10 mg 10/28/19 16:00 10/29/19 22:09 Eliquis PO 11/03/19 22:01 10 mg Q12HR LUCERO Administration Protocol Dextrose 0 ml 10/25/19 02:53 D50w (25gm) Syringe IV Q30MIN PRN Hypoglycemia Protocol Sodium Chloride 1,000 mls @ 125 mls/hr 10/29/19 04:45 10/29/19 04:52 Nacl 0.9% 1000 Ml IV 125 mls/hr DIRECT LUCERO Administration Insulin Glargine 36 units 10/26/19 22:00 10/29/19 22:10 Lantus SUB-Q Not Given QHS LUCERO Insulin Human Lispro 0 unit 10/25/19 07:30 10/29/19 22:10 Humalog SUB-Q Not Given ACHS [facility] Protocol Magnesium Hydroxide 30 ml 10/25/19 02:53 Milk Of Magnesia PO Q4H PRN Constipation Metformin HCl 500 mg 10/26/19 17:00 10/29/19 17:29 Glucophage PO 500 mg BIDDIAB LUCERO Administration Ondansetron HCl 4 mg 10/25/19 02:53 Zofran IV Q8H PRN Nausea And Vomiting Sodium Chloride 10 ml 10/25/19 10:00 10/29/19 22:10 Sodium Chloride Flush Syringe 10 Ml IV 10 ml BID LUCERO Administration Sodium Chloride 10 ml 10/25/19 02:53 Sodium Chloride Flush Syringe 10 Ml IV PRN PRN LINE FLUSH Nutrition/Malnutrition Assess - Dietary Evaluation Nutrition/Malnutrition Findings: Nutrition Notes Start: 10/25/19 12:07 Freq: Status: Active Protocol: Document 10/25/19 12:07 DANIA (Rec: 10/25/19 12:13 DANIA [id number]) Co-Sign 09/19/20 12:07 LP Nutrition Notes Need for Assessment generated from: MD Order,Education Initial or Follow up Brief Note Current Diagnosis Diabetes Other Pertinent Diagnosis Syncope, Hyperglycemia, Dehydration Current Diet Consistent CHO [place] Body Weight (kg) 0 Subjective/Other Information MD consult for diet edu. Pt reports eating 100% of meals and still feeling hungry. RD gave snack and double meat/ vegetable portions. #1 Nutrition Diagnosis Food and nutrition-related knowledge deficit Etiology inadquate prior DM edication As Evidenced by Signs and Symptoms pt had questions about DM diet Diagnosis Progress(for reassessment Resolved documentation) Nutrition Intervention Teaching Recipient Patient Learning Readiness Good Teaching Methods Discussion Response to Teaching Verbalize understanding Education Handouts Provided Hypo/Hyperglycemia Symptoms DM Edu for T2DM Barriers to Learning No Barriers RD phone number provided Yes Patient aware of follow up options Yes Revisit per MD consult or patient Sign Off request:
[2019-10-30] MEDS: INSULIN LISPRO 100 UNIT/ML VIAL 3 mL SUB-Q SCH ×4 (08:55→22:43)
[2019-10-30] MEDS: APIXABAN 5 MG TAB PO SCH ×3 (08:56→22:42)
[2019-10-30] MEDS: metFORMIN 500 MG TAB PO SCH ×2 (08:56→17:34)
[2019-10-30] MEDS: INSULIN GLARGINE 100 UNITS/ML SUB-Q SCH (22:43)
[2019-10-31] MEDS: SODIUM CHLORIDE 0.9% 1000 ML 1,000 ML IV SCH ×3 (05:10→22:01)
--- NOTE | 2019-10-31 07:54 | Progress Note ---
Assessment and Plan Assessment and plan: Pulmonary embolism. Heparin drip. Vascular consult appreciated. Diabetes mellitus type 2. Continue Accu-Cheks and sliding scale insulin. 10/26/2019. Vascular surgery believes that the patient may benefit from nonemergent placement of thrombolytics catheters versus pulmonary thrombectomy to prevent CTEPH. Done yesterday. Continue heparin drip for now until after the procedure and then transition to oral anticoagulation 10/27/2019. Echocardiogram reveals mild to moderate concentric left ventricular hypertrophy with global left ventricular wall motion and contractility within normal limits. EF 55 to 60%. Right ventricular systolic function reported as normal. Vascular surgery to perform nonemergent placement of thrombolytics catheters versus pulmonary thrombectomy to prevent CTEPH. Continue IMCU monitoring. 10/28/2019; Echocardiogram reveals mild to moderate concentric left ventricular hypertrophy with global left ventricular wall motion and contractility within normal limits. EF 55 to 60%. Right ventricular systolic function reported as normal. Vascular surgery to perform nonemergent placement of thrombolytics catheters versus pulmonary thrombectomy to prevent CTEPH. 10/29/2019; patient has hypotension and near syncope, dizziness. I put the patient on IV fluids will monitor. ; patient's blood pressure reading from this morning is normal. Going to hold IV fluids and do physical therapy. Blood pressure is stable and no symptoms while on physical therapy patient can be discharged home today with p.o. Eliquis. IV heparin was changed to p.o. Eliquis yesterday. Patient is status post thrombectomy by interventional radiology. 10/31/2019; patient has low blood pressure reading earlier this morning, I started patient on midodrine. Patient is on p.o. Eliquis. We will keep the patient until his blood pressure is normal and dizziness subsides. There is a high risk patient with high clot burden, status post thrombectomy. History Interval history: Patient was seen and evaluated this morning Patient did not have any complaints, saturating well on room air Blood pressure reading earlier this morning was 86 x 47, patient was dizzy Hospitalist Physical - Physical exam Narrative exam: Not in cardiopulmonary distress. The patient appeared well nourished and normally developed. Vital signs as documented. Head exam is unremarkable. No scleral icterus . Neck is without jugular venous distension, thyromegaly, or carotid bruits. Lungs are clear to auscultation. Cardiac exam reveals regular rate and Rhythm. Abdominal exam reveals normal bowel sounds, nontender, no organomegaly. Extremities are nonedematous and both femoral and pedal pulses are normal. 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 No focal weakness. Not in cardiopulmonary distress . - Constitutional Vitals: Temp Pulse Resp BP Pulse Ox 98.5 F 88 18 111/68 96 10/31/19 04:28 10/31/19 06:25 10/31/19 06:25 10/31/19 06:25 10/31/19 06:25 General appearance: Present: no acute distress HEART Score - HEART Score Troponin: Troponin T < 0.010 ng/mL (0.00-0.029) 10/24/19 15:17 Results - Labs CBC & Chem 7: 10/31/19 08:04 10/29/19 04:29 Labs: Laboratory Last Values WBC 8.9 K/mm3 (4.5-11.0) 10/29/19 04:29 RBC 3.81 M/mm3 (3.65-5.03) 10/29/19 04:29 Hgb 9.3 gm/dl (11.8-15.2) L 10/30/19 06:03 Hct 28.1 % (35.5-45.6) L 10/30/19 06:03 MCV 79 fl (84-94) L 10/29/19 04:29 MCH 27 pg (28-32) L 10/29/19 04:29 MCHC 34 % (32-34) 10/29/19 04:29 RDW 14.8 % (13.2-15.2) 10/29/19 04:29 Plt Count 150 K/mm3 (140-440) 10/30/19 06:03 Lymph % (Auto) 11.1 % (13.4-35.0) L 10/29/19 04:29 [place] % (Auto) 7.3 % (0.0-7.3) 10/29/19 04:29 Eos % (Auto) 1.3 % (0.0-4.3) 10/29/19 04:29 Baso % (Auto) 0.3 % (0.0-1.8) 10/29/19 04:29 Lymph # (Auto) 1.0 K/mm3 (1.2-5.4) L 10/29/19 04:29 [place] # (Auto) 0.6 K/mm3 (0.0-0.8) 10/29/19 04:29 Eos # (Auto) 0.1 K/mm3 (0.0-0.4) 10/29/19 04:29 Baso # (Auto) 0.0 K/mm3 (0.0-0.1) 10/29/19 04:29 Seg Neutrophils % 80.0 % (40.0-70.0) H 10/29/19 04:29 Seg Neutrophils # 7.1 K/mm3 (1.8-7.7) 10/29/19 04:29 PT 12.7 Sec. (12.2-14.9) 10/26/19 04:40 INR 0.94 (0.87-1.13) 10/26/19 04:40 APTT 27.8 Sec. (24.2-36.6) 10/24/19 21:24 Fibrinogen 425 mg/dl (211-480) 10/27/19 09:38 D-Dimer 2474.81 ng/mlDDU (0-234) H 10/24/19 21:24 Heparin Anti-Xa Level 2.00 U.I./ml (0.3-0.7) H 10/29/19 04:29 Sodium 137 mmol/L (137-145) 10/29/19 04:29 Potassium 3.4 mmol/L (3.6-5.0) L 10/29/19 04:29 Chloride 103.7 mmol/L (98-107) 10/29/19 04:29 Carbon Dioxide 21 mmol/L (22-30) L 10/29/19 04:29 Anion Gap 16 mmol/L 10/29/19 04:29 BUN 15 mg/dL (9-20) 10/29/19 04:29 Creatinine 1.1 mg/dL (0.8-1.3) 10/29/19 04:29 Estimated GFR > 60 ml/min 10/29/19 04:29 BUN/Creatinine Ratio 14 % 10/29/19 04:29 Glucose 101 mg/dL (75-100) H 10/29/19 04:29 POC Glucose 154 (70-105) H 10/30/19 21:49 Calcium 8.2 mg/dL (8.4-10.2) L 10/29/19 04:29 Total Bilirubin 0.50 mg/dL (0.1-1.2) 10/24/19 15:17 AST 9 units/L (5-40) 10/24/19 15:17 ALT 8 units/L (7-56) 10/24/19 15:17 Alkaline Phosphatase 113 units/L (35-129) 10/24/19 15:17 Total Creatine Kinase 166 units/L (55-170) 10/24/19 21:24 CK-MB (CK-2) 3.7 ng/mL (0.0-4.0) 10/24/19 21:24 CK-MB (CK-2) Rel Index 2.2 (0-4) 10/24/19 21:24 Troponin T < 0.010 ng/mL (0.00-0.029) 10/24/19 15:17 Total Protein 7.1 g/dL (6.3-8.2) 10/24/19 15:17 Albumin 3.4 g/dL (3.9-5) L 10/24/19 15:17 Albumin/Globulin Ratio 0.9 % 10/24/19 15:17 - Diagnostic Impressions Diagnostic Impressions: Echocardiogram 10/25/19 08:51 Transthoracic Echocardiogram Indication: Saddle PE BP: 133/86 Conclusions *Mild to moderate concentric left ventricular hypertrophy is observed. *Global left ventricular wall motion and contractility are within normal limits. *The estimated ejection fraction is 55-60%. *Normal left ventricular diastolic filling is observed. *There is no pericardial effusion. Findings Left Ventricle: The left ventricular chamber size is normal. Mild to moderate concentric left ventricular hypertrophy is observed. Global left ventricular wall motion and contractility are within normal limits. Global left ventricular systolic function is normal. The estimated ejection fraction is 55-60%. Normal left ventricular diastolic filling is observed. Left Atrium: The left atrium is normal in size with no visual thrombus identified. Right Ventricle: The right ventricular cavity size is normal. The right ventricular global systolic function is normal. Right Atrium: The right atrium appears normal. The interatrial septum appears normal. Aortic Valve: The aortic valve structure is normal. There is no evidence of aortic regurgitation. There is no evidence of aortic stenosis. Mitral Valve: The mitral valve leaflets appear normal. There is no evidence of mitral regurgitation. There is no evidence of mitral stenosis. Tricuspid Valve: The tricuspid valve leaflets are normal. There is no evidence of tricuspid valve regurgitation. There is no tricuspid stenosis. Pulmonic Valve: The pulmonic valve appears normal. There is no evidence of pulmonic regurgitation. There is no pulmonic stenosis. Pericardium: There is no pericardial effusion. Aorta: There is no dilatation of the ascending aorta. There is no dilatation of the aortic arch. There is no dilatation of the descending thoracic aorta. There is no dilatation of the aortic root. Venous: The inferior vena cava is not visualized. Measurements Chambers 2D Name Value Normal Range RVIDd (AP) 2D 2.84 cm (0.9 - 2.6) IVSd (2D) 1.57 cm (0.6 - 1.1) LVPWd (2D) 1.44 cm (0.6 - 1.1) IVS:LVPW ratio (2D) 1.09 ratio - LVIDd (2D) 2.87 cm (3.7 - 5.6) LVIDs (2D) 2 cm (2 - 3.8) LV FS (Teichholz) (2D) 30.3 % - LV FS (cube) (2D) 30.3 % - EF Teichholz (2D) 59.6 % - Ao root diameter (2D) 2.6 cm (2 - 3.7) LA dimension (AP) 2D 2.7 cm (1.9 - 4) LA:Ao ratio (2D) 1.04 ratio - Volumes/Mass Name Value Normal Range LA ESV SP 4CH (MOD) 32 ml - LA ESV SP 2CH (MOD) 21 ml - Diastolic/Systolic Function Name Value Normal Range MV E-wave Vmax 0.59 m/sec - MV A-wave Vmax 0.57 m/sec - MV E:A ratio 1 ratio - LV septal e' Vmax 0.05 m/sec - LV lateral e' Vmax 0.07 m/sec - LV E:e' septal ratio 11.2 ratio - LV E:e' lateral ratio 8.1 ratio - Aortic Valve Name Value Normal Range AV VTI 17.9 cm - AV mean gradient 3 mmHg - LVOT diameter 2.3 cm - LVOT VTI 19.3 cm - LVOT mean gradient 3 mmHg - SV LVOT 80 ml - FELIX (continuity VTI) 4.47 cm2 - Mitral Valve Name Value Normal Range MV PHT 63 msec - MVA (PHT) 3.49 cm2 - Pulmonic Valve/Qp:Qs Name Value Normal Range PV Vmax 0.87 m/sec - PV peak gradient 3 mmHg - Brandt/IV: Voiding Method Urinal IV Catheter Type [Right Hand] Peripheral IV IV Catheter Type [Left INT / Saline Lock Antecubital] Active Medications - Current Medications Current Medications: Generic Name Dose Route Start Last Admin Trade Name Freq PRN Reason Stop Dose Admin Acetaminophen 650 mg 10/25/19 02:53 10/27/19 20:13 Tylenol PO 650 mg Q4H PRN Administration Pain MILD(1-3)/Fever >100.5/ONEAL Apixaban 10 mg 10/28/19 16:00 10/30/19 22:42 Eliquis PO 11/03/19 22:01 10 mg Q12HR LUCERO Administration Protocol Dextrose 0 ml 10/25/19 02:53 D50w (25gm) Syringe IV Q30MIN PRN Hypoglycemia Protocol Sodium Chloride 1,000 mls @ 125 mls/hr 10/29/19 04:45 10/31/19 05:10 Nacl 0.9% 1000 Ml IV 125 mls/hr DIRECT LUCERO Administration Insulin Glargine 36 units 10/26/19 22:00 10/30/19 22:43 Lantus SUB-Q 36 units QHS LUCERO Administration Insulin Human Lispro 0 unit 10/25/19 07:30 10/30/19 22:43 Humalog SUB-Q Not Given ACHS LUCERO Protocol Magnesium Hydroxide 30 ml 10/25/19 02:53 10/30/19 17:34 Milk Of Magnesia PO 30 ml Q4H PRN Administration Constipation Metformin HCl 500 mg 10/26/19 17:00 10/30/19 17:34 Glucophage PO 500 mg BIDDIAB LUCERO Administration Midodrine 10 mg 10/31/19 08:00 Proamatine PO TID@0800,1200,1600 LUCERO Ondansetron HCl 4 mg 10/25/19 02:53 Zofran IV Q8H PRN Nausea And Vomiting Sodium Chloride 10 ml 10/25/19 10:00 09/24/20 22:43 Sodium Chloride Flush Syringe 10 Ml IV 10 ml BID LUCERO Administration Sodium Chloride 10 ml 10/25/19 02:53 Sodium Chloride Flush Syringe 10 Ml IV PRN PRN LINE FLUSH Nutrition/Malnutrition Assess - Dietary Evaluation Nutrition/Malnutrition Findings: Nutrition Notes Start: 10/25/19 12:07 Freq: Status: Active Protocol: Document 10/25/19 12:07 DANIA (Rec: 10/25/19 12:13 DANIA [id number]) Co-Sign 10/25/19 12:07 LP Nutrition Notes Need for Assessment generated from: MD Order,Education Initial or Follow up Brief Note Current Diagnosis Diabetes Other Pertinent Diagnosis Syncope, Hyperglycemia, Dehydration Current Diet Consistent CHO [place] Body Weight (kg) 0 Subjective/Other Information MD consult for diet edu. Pt reports eating 100% of meals and still feeling hungry. RD gave snack and double meat/ vegetable portions. #1 Nutrition Diagnosis Food and nutrition-related knowledge deficit Etiology inadquate prior DM edication As Evidenced by Signs and Symptoms pt had questions about DM diet Diagnosis Progress(for reassessment Resolved documentation) Nutrition Intervention Teaching Recipient Patient Learning Readiness Good Teaching Methods Discussion Response to Teaching Verbalize understanding Education Handouts Provided Hypo/Hyperglycemia Symptoms DM Edu for T2DM Barriers to Learning No Barriers RD phone number provided Yes Patient aware of follow up options Yes Revisit per MD consult or patient Sign Off request:
[2019-10-31 08:27] LABS: Hematocrit 27.4 % (35.5-45.6); Hemoglobin 9.2 gm/dl (11.8-15.2)
[2019-10-31] MEDS: metFORMIN 500 MG TAB PO SCH ×2 (09:16→16:37)
[2019-10-31] MEDS: MIDODRINE 5 MG TAB PO SCH ×3 (09:17→16:37)
[2019-10-31] MEDS: INSULIN LISPRO 100 UNIT/ML VIAL 3 mL SUB-Q SCH ×5 (09:17→22:12)
[2019-10-31] MEDS: APIXABAN 5 MG TAB PO SCH ×2 (09:17→21:27)
[2019-10-31] MEDS: INSULIN GLARGINE 100 UNITS/ML SUB-Q SCH (22:13)
[2019-11-01] MEDS: SODIUM CHLORIDE 0.9% 1000 ML 1,000 ML IV SCH ×2 (06:18→18:20)
[2019-11-01 06:45] LABS: BUN/Creatinine Ratio 14; Blood Urea Nitrogen 13 mg/dL (9-20); Calcium 7.7 mg/dL (8.4-10.2); Hemolysis Index 7
[2019-11-01 07:01] LABS: Basophils % (Auto) 0.5 % (0.0-1.8); Eosinophils # (Auto) 0.2 K/mm3 (0.0-0.4); Eosinophils % (Auto) 2.6 % (0.0-4.3); Hematocrit 28.2 % (35.5-45.6); Hemoglobin 9.4 gm/dl (11.8-15.2); Lymphocytes # (Auto) 1.1 K/mm3 (1.2-5.4); Lymphocytes % (Auto) 17.1 % (13.4-35.0); Mean Corpuscular HGB Conc 33 % (32-34); Mean Corpuscular Volume 80 fl (84-94); Monocytes # (Auto) 0.6 K/mm3 (0.0-0.8); Monocytes % (Auto) 8.5 % (0.0-7.3); Platelet Count 187 K/mm3 (140-440); Red Blood Count 3.52 M/mm3 (3.65-5.03); Red Cell Distribution Width 14.8 % (13.2-15.2)
[2019-11-01] MEDS: INSULIN LISPRO 100 UNIT/ML VIAL 3 mL SUB-Q SCH ×4 (08:13→21:19)
[2019-11-01] MEDS: metFORMIN 500 MG TAB PO SCH ×2 (08:24→16:35)
[2019-11-01] MEDS: MIDODRINE 5 MG TAB PO SCH ×3 (08:24→16:35)
[2019-11-01] MEDS: APIXABAN 5 MG TAB PO SCH ×2 (09:26→21:23)
--- NOTE | 2019-11-01 09:36 | Progress Note ---
Assessment and Plan Assessment and plan: Pulmonary embolism. Heparin drip. Vascular consult appreciated. Diabetes mellitus type 2. Continue Accu-Cheks and sliding scale insulin. 10/26/2019. Vascular surgery believes that the patient may benefit from nonemergent placement of thrombolytics catheters versus pulmonary thrombectomy to prevent CTEPH. Done yesterday. Continue heparin drip for now until after the procedure and then transition to oral anticoagulation 10/27/2019. Echocardiogram reveals mild to moderate concentric left ventricular hypertrophy with global left ventricular wall motion and contractility within normal limits. EF 55 to 60%. Right ventricular systolic function reported as normal. Vascular surgery to perform nonemergent placement of thrombolytics catheters versus pulmonary thrombectomy to prevent CTEPH. Continue IMCU monitoring. 10/28/2019; Echocardiogram reveals mild to moderate concentric left ventricular hypertrophy with global left ventricular wall motion and contractility within normal limits. EF 55 to 60%. Right ventricular systolic function reported as normal. Vascular surgery to perform nonemergent placement of thrombolytics catheters versus pulmonary thrombectomy to prevent CTEPH. 10/29/2019; patient has hypotension and near syncope, dizziness. I put the patient on IV fluids will monitor. ; patient's blood pressure reading from this morning is normal. Going to hold IV fluids and do physical therapy. Blood pressure is stable and no symptoms while on physical therapy patient can be discharged home today with p.o. Eliquis. IV heparin was changed to p.o. Eliquis yesterday. Patient is status post thrombectomy by interventional radiology. 10/31/2019; patient has low blood pressure reading earlier this morning, I started patient on midodrine. Patient is on p.o. Eliquis. We will keep the patient until his blood pressure is normal and dizziness subsides. There is a high risk patient with high clot burden, status post thrombectomy. ; patient's blood pressure is on the low side of normal and patient is still complaining dizziness. Patient is on IV normal saline at 125 mL/h and midodrin, continue with p.o. eliquis. His dizziness is persisted and I am going to do MRI of the brain to check for posterior stroke. History Interval history: Patient was seen and evaluated this morning Patient did not have any complaints, saturating well on room air Blood pressure is on the low side of normal, patient is still complaining dizziness Hospitalist Physical - Physical exam Narrative exam: Not in cardiopulmonary distress. The patient appeared well nourished and normally developed. Vital signs as documented. Head exam is unremarkable. No scleral icterus . Neck is without jugular venous distension, thyromegaly, or carotid bruits. Lungs are clear to auscultation. Cardiac exam reveals regular rate and Rhythm. Abdominal exam reveals normal bowel sounds, nontender, no organomegaly. Extremities are nonedematous and both femoral and pedal pulses are normal. LOGISTICS SUPPORT: Alert and oriented 3. No focal weakness. Not in cardiopulmonary distress . - Constitutional Vitals: Temp Pulse Resp BP Pulse Ox 98.5 F 76 18 102/64 97 11/01/19 08:02 11/01/19 08:02 11/01/19 08:02 11/01/19 08:02 11/01/19 08:02 General appearance: Present: no acute distress HEART Score - HEART Score Troponin: Troponin T < 0.010 ng/mL (0.00-0.029) 10/24/19 15:17 Results - Labs CBC & Chem 7: 11/01/19 05:59 11/01/19 05:59 Labs: Laboratory Last Values WBC 6.6 K/mm3 (4.5-11.0) 11/01/19 05:59 RBC 3.52 M/mm3 (3.65-5.03) L 11/01/19 05:59 Hgb 9.4 gm/dl (11.8-15.2) L 11/01/19 05:59 Hct 28.2 % (35.5-45.6) L 11/01/19 05:59 MCV 80 fl (84-94) L 11/01/19 05:59 MCH 27 pg (28-32) L 11/01/19 05:59 MCHC 33 % (32-34) 11/01/19 05:59 RDW 14.8 % (13.2-15.2) 11/01/19 05:59 Plt Count 187 K/mm3 (140-440) 11/01/19 05:59 Lymph % (Auto) 17.1 % (13.4-35.0) 11/01/19 05:59 [place] % (Auto) 8.5 % (0.0-7.3) H 11/01/19 05:59 Eos % (Auto) 2.6 % (0.0-4.3) 11/01/19 05:59 Baso % (Auto) 0.5 % (0.0-1.8) 11/01/19 05:59 Lymph # (Auto) 1.1 K/mm3 (1.2-5.4) L 11/01/19 05:59 [place] # (Auto) 0.6 K/mm3 (0.0-0.8) 11/01/19 05:59 Eos # (Auto) 0.2 K/mm3 (0.0-0.4) 11/01/19 05:59 Baso # (Auto) 0.0 K/mm3 (0.0-0.1) 11/01/19 05:59 Seg Neutrophils % 71.3 % (40.0-70.0) H 11/01/19 05:59 Seg Neutrophils # 4.7 K/mm3 (1.8-7.7) 11/01/19 05:59 PT 12.7 Sec. (12.2-14.9) 10/26/19 04:40 INR 0.94 (0.87-1.13) 10/26/19 04:40 APTT 27.8 Sec. (24.2-36.6) 10/24/19 21:24 Fibrinogen 425 mg/dl (211-480) 10/27/19 09:38 D-Dimer 2474.81 ng/mlDDU (0-234) H 10/24/19 21:24 Heparin Anti-Xa Level 2.00 U.I./ml (0.3-0.7) H 10/29/19 04:29 Sodium 141 mmol/L (137-145) 11/01/19 05:59 Potassium 3.7 mmol/L (3.6-5.0) 11/01/19 05:59 Chloride 108.9 mmol/L (98-107) H 11/01/19 05:59 Carbon Dioxide 21 mmol/L (22-30) L 11/01/19 05:59 Anion Gap 15 mmol/L 11/01/19 05:59 BUN 13 mg/dL (9-20) 11/01/19 05:59 Creatinine 0.9 mg/dL (0.8-1.3) 09/26/20 05:59 Estimated GFR > 60 ml/min 11/01/19 05:59 BUN/Creatinine Ratio 14 % 11/01/19 05:59 Glucose 107 mg/dL (75-100) H 11/01/19 05:59 POC Glucose 89 (70-105) 11/01/19 08:20 Calcium 7.7 mg/dL (8.4-10.2) L 11/01/19 05:59 Total Bilirubin 0.50 mg/dL (0.1-1.2) 10/24/19 15:17 AST 9 units/L (5-40) 10/24/19 15:17 ALT 8 units/L (7-56) 10/24/19 15:17 Alkaline Phosphatase 113 units/L (35-129) 10/24/19 15:17 Total Creatine Kinase 166 units/L (55-170) 10/24/19 21:24 CK-MB (CK-2) 3.7 ng/mL (0.0-4.0) 10/24/19 21:24 CK-MB (CK-2) Rel Index 2.2 (0-4) 10/24/19 21:24 Troponin T < 0.010 ng/mL (0.00-0.029) 10/24/19 15:17 Total Protein 7.1 g/dL (6.3-8.2) 10/24/19 15:17 Albumin 3.4 g/dL (3.9-5) L 10/24/19 15:17 Albumin/Globulin Ratio 0.9 % 10/24/19 15:17 - Diagnostic Impressions Diagnostic Impressions: Echocardiogram 10/25/19 08:51 Transthoracic Echocardiogram Indication: Saddle PE BP: 133/86 Conclusions *Mild to moderate concentric left ventricular hypertrophy is observed. *Global left ventricular wall motion and contractility are within normal limits. *The estimated ejection fraction is 55-60%. *Normal left ventricular diastolic filling is observed. *There is no pericardial effusion. Findings Left Ventricle: The left ventricular chamber size is normal. Mild to moderate concentric left ventricular hypertrophy is observed. Global left ventricular wall motion and contractility are within normal limits. Global left ventricular systolic function is normal. The estimated ejection fraction is 55-60%. Normal left ventricular diastolic filling is observed. Left Atrium: The left atrium is normal in size with no visual thrombus identified. Right Ventricle: The right ventricular cavity size is normal. The right ventricular global systolic function is normal. Right Atrium: The right atrium appears normal. The interatrial septum appears normal. Aortic Valve: The aortic valve structure is normal. There is no evidence of aortic regurgitation. There is no evidence of aortic stenosis. Mitral Valve: The mitral valve leaflets appear normal. There is no evidence of mitral regurgitation. There is no evidence of mitral stenosis. Tricuspid Valve: The tricuspid valve leaflets are normal. There is no evidence of tricuspid valve regurgitation. There is no tricuspid stenosis. Pulmonic Valve: The pulmonic valve appears normal. There is no evidence of pulmonic regurgitation. There is no pulmonic stenosis. Pericardium: There is no pericardial effusion. Aorta: There is no dilatation of the ascending aorta. There is no dilatation of the aortic arch. There is no dilatation of the descending thoracic aorta. There is no dilatation of the aortic root. Venous: The inferior vena cava is not visualized. Measurements Chambers 2D Name Value Normal Range RVIDd (AP) 2D 2.84 cm (0.9 - 2.6) IVSd (2D) 1.57 cm (0.6 - 1.1) LVPWd (2D) 1.44 cm (0.6 - 1.1) IVS:LVPW ratio (2D) 1.09 ratio - LVIDd (2D) 2.87 cm (3.7 - 5.6) LVIDs (2D) 2 cm (2 - 3.8) LV FS (Teichholz) (2D) 30.3 % - LV FS (cube) (2D) 30.3 % - EF Teichholz (2D) 59.6 % - Ao root diameter (2D) 2.6 cm (2 - 3.7) LA dimension (AP) 2D 2.7 cm (1.9 - 4) LA:Ao ratio (2D) 1.04 ratio - Volumes/Mass Name Value Normal Range LA ESV SP 4CH (MOD) 32 ml - LA ESV SP 2CH (MOD) 21 ml - Diastolic/Systolic Function Name Value Normal Range MV E-wave Vmax 0.59 m/sec - MV A-wave Vmax 0.57 m/sec - MV E:A ratio 1 ratio - LV septal e' Vmax 0.05 m/sec - LV lateral e' Vmax 0.07 m/sec - LV E:e' septal ratio 11.2 ratio - LV E:e' lateral ratio 8.1 ratio - Aortic Valve Name Value Normal Range AV VTI 17.9 cm - AV mean gradient 3 mmHg - LVOT diameter 2.3 cm - LVOT VTI 19.3 cm - LVOT mean gradient 3 mmHg - SV LVOT 80 ml - FELIX (continuity VTI) 4.47 cm2 - Mitral Valve Name Value Normal Range MV PHT 63 msec - MVA (PHT) 3.49 cm2 - Pulmonic Valve/Qp:Qs Name Value Normal Range PV Vmax 0.87 m/sec - PV peak gradient 3 mmHg - Brandt/IV: Voiding Method Urinal IV Catheter Type [Right Hand] Peripheral IV IV Catheter Type [Left INT / Saline Lock Antecubital] Active Medications - Current Medications Current Medications: Generic Name Dose Route Start Last Admin Trade Name Freq PRN Reason Stop Dose Admin Acetaminophen 650 mg 10/25/19 02:53 10/27/19 20:13 Tylenol PO 650 mg Q4H PRN Administration Pain MILD(1-3)/Fever >100.5/ONEAL Apixaban 10 mg 10/28/19 16:00 11/01/19 09:26 Eliquis PO 11/03/19 22:01 10 mg Q12HR LUCERO Administration Protocol Dextrose 0 ml 10/25/19 02:53 D50w (25gm) Syringe IV Q30MIN PRN Hypoglycemia Protocol Sodium Chloride 1,000 mls @ 125 mls/hr 10/29/19 04:45 11/01/19 06:18 Nacl 0.9% 1000 Ml IV 125 mls/hr DIRECT LUCERO Administration Insulin Glargine 36 units 10/26/19 22:00 10/31/19 22:13 Lantus SUB-Q 36 units QHS LUCERO Administration Insulin Human Lispro 0 unit 10/25/19 07:30 11/01/19 08:13 Humalog SUB-Q Not Given ACHS LUCERO Protocol Magnesium Hydroxide 30 ml 10/25/19 02:53 10/30/19 17:34 Milk Of Magnesia PO 30 ml Q4H PRN Administration Constipation Metformin HCl 500 mg 10/26/19 17:00 11/01/19 08:24 Glucophage PO 500 mg BIDDIAB LUCERO Administration Midodrine 10 mg 10/31/19 08:00 11/01/19 08:24 Proamatine PO 10 mg TID@0800,1200,1600 LUCERO Administration Ondansetron HCl 4 mg 10/25/19 02:53 Zofran IV Q8H PRN Nausea And Vomiting Sodium Chloride 10 ml 10/25/19 10:00 11/01/19 09:26 Sodium Chloride Flush Syringe 10 Ml IV 10 ml BID LUCERO Administration Sodium Chloride 10 ml 10/25/19 02:53 Sodium Chloride Flush Syringe 10 Ml IV PRN PRN LINE FLUSH Nutrition/Malnutrition Assess - Dietary Evaluation Nutrition/Malnutrition Findings: Nutrition Notes Start: 10/25/19 12:07 Freq: Status: Active Protocol: Document 10/31/19 13:41 AL (Rec: 10/31/19 14:01 AL [id number]) Co-Sign 10/31/19 13:41 LP Nutrition Notes Initial or Follow up Brief Note Current Diagnosis Diabetes Other Pertinent Diagnosis Syncope, Hyperglycemia, Dehydration Current Diet Cardiac Subjective/Other Information Pt was receiving treatment at time of visit. Nutrition Intervention Follow-Up By: 11/03/19 Additional Comments F/U for LOS
--- NOTE | 2019-11-01 17:43 | Magnetic Resonance Report ---
MR brain wo con INDICATION / CLINICAL INFORMATION: 59 years Male; Dizziness. TECHNIQUE: Multiplanar, multisequence MR images of the brain were obtained. COMPARISON: CT-10/24/2019 FINDINGS: BRAIN / INTRACRANIAL CONTENTS: No acute hemorrhage, mass effect, midline shift, hydrocephalus, or acu te, large territorial infarct. No chronic infarct or atrophy. No significant white matter abnormality . CRANIOCERVICAL JUNCTION: No significant abnormality. VASCULAR FLOW-VOIDS: No significant abnormality. ORBITS: No significant abnormality of visualized orbits. SINUSES / MASTOIDS: Mild to moderate mucosal thickening seen throughout the visualized paranasal sinu ses, including the mastoid regions. No definitive air-fluid levels appreciated. ADDITIONAL FINDINGS: None. IMPRESSION: 1. No focal mass, hemorrhage, hydrocephalus, or acute ischemia. Signer Name: Tristian Diaz MD, III Signed: 11/01/2019 5:38 PM Workstation Name: [id number]
[2019-11-01] MEDS: INSULIN GLARGINE 100 UNITS/ML SUB-Q SCH (21:19)
[2019-11-02] MEDS: SODIUM CHLORIDE 0.9% 1000 ML 1,000 ML IV SCH ×3 (02:38→21:23)
[2019-11-02] MEDS: INSULIN LISPRO 100 UNIT/ML VIAL 3 mL SUB-Q SCH ×4 (07:56→21:23)
[2019-11-02] MEDS: MIDODRINE 5 MG TAB PO SCH ×3 (09:41→16:04)
[2019-11-02] MEDS: metFORMIN 500 MG TAB PO SCH ×2 (09:42→16:04)
[2019-11-02] MEDS: APIXABAN 5 MG TAB PO SCH ×2 (09:43→21:23)
--- NOTE | 2019-11-02 10:08 | Discharge Summary ---
Providers - Providers Date of Admission: 10/25/19 01:22 Date of discharge: 11/02/19 Attending physician: WALKER VILLEGAS 10/25/19 02:54 Consult to Dietitian/Nutrition [CONS] Routine Physician Instructions: Reason For Exam: Reason for Consult: Diet education 10/25/19 04:08 Consult to Physician [CONS] Routine Comment: Consulting Provider: ELAINE TRIPP Physician Instructions: Reason For Exam: pe 10/30/19 08:13 Physical Therapy Evaluation and Treat [CONS] Routine Comment: Reason For Exam: Dizziness Primary care physician: GREENKEEPER Hospitalization Condition: Critical Hospital course: 59-year-old -[place]ux[place] male with known history of diabetes mellitus presented to the emergency room today with complaints of dizziness and syncopal episode. He admits that he had a brief period of loss of consciousness which was witnessed by his . He still felt dizzy upon arrival in the emergency room. Denies any chest pain or shortness of breath, no fever or chills, no nausea or vomiting, no diarrhea, denies any sick contacts and no recent travel. Denies any contact with anyone COVID-19. Patient admits that he sits down at home for long period of time. Work-up in the emergency room today reveals elevated d-dimer. CT angiogram done reveals saddle embolus. Consult has been placed to the vascular surgeon Dr. Tripp who will be evaluating patient. Meanwhile patient has been placed on heparin drip. 10/26/2019. Vascular surgery believes that the patient may benefit from nonemergent placement of thrombolytics catheters versus pulmonary thrombectomy to prevent CTEPH. Done yesterday. Continue heparin drip for now until after the procedure and then transition to oral anticoagulation 10/27/2019. Echocardiogram reveals mild to moderate concentric left ventricular hypertrophy with global left ventricular wall motion and contractility within normal limits. EF 55 to 60%. Right ventricular systolic function reported as normal. Vascular surgery to perform nonemergent placement of thrombolytics catheters versus pulmonary thrombectomy to prevent CTEPH. Continue IMCU monitoring. 10/28/2019; Echocardiogram reveals mild to moderate concentric left ventricular hypertrophy with global left ventricular wall motion and contractility within normal limits. EF 55 to 60%. Right ventricular systolic function reported as normal. Vascular surgery to perform nonemergent placement of thrombolytics catheters versus pulmonary thrombectomy to prevent CTEPH. 10/29/2019; patient has hypotension and near syncope, dizziness. I put the patient on IV fluids will monitor. ; patient's blood pressure reading from this morning is normal. Going to hold IV fluids and do physical therapy. Blood pressure is stable and no symptoms while on physical therapy patient can be discharged home today with p.o. Eliquis. IV heparin was changed to p.o. Eliquis yesterday. Patient is status post thrombectomy by interventional radiology. 10/31/2019; patient has low blood pressure reading earlier this morning, I started patient on midodrine. Patient is on p.o. Eliquis. We will keep the patient until his blood pressure is normal and dizziness subsides. There is a high risk patient with high clot burden, status post thrombectomy. ; patient's blood pressure is on the low side of normal and patient is still complaining dizziness. Patient is on IV normal saline at 125 mL/h and midodrin, continue with p.o. eliquis. His dizziness is persisted and I am going to do MRI of the brain to check for posterior stroke. 11/01 patient is alert and oriented and resting in the bed. He offers no specific complaints except feeling dizzy. He states that he has chronic history of dizziness for many years. He denies any chest pain or shortness of breath. Denies any fever or chills. Patient is on midodrine. Blood pressure looks.. Orthostatics were checked prior to discharge. Patient is otherwise medically stable for discharge. 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 I discussed with Dr. Wright and he would follow the patient in his clinic Disposition: DC-01 TO HOME OR SELFCARE Time spent for discharge: 40 min Exam - Constitutional Vitals: Temp Pulse Resp BP Pulse Ox 98.1 F 83 18 102/65 97 11/02/19 07:42 11/02/19 07:42 11/02/19 07:42 11/02/19 07:42 11/02/19 07:42 Plan Follow up with: PRIMARY MD ROBE [Primary Care Provider] - 3-5 Days
--- NOTE | 2019-11-02 11:15 | Progress Note ---
Subjective Date of service: 11/02/19 Interval history: Assessment and plan: Acute pulmonary embolism right. : Status post thrombectomy of the right pulmonary artery on 10/26 Continue Xarelto Diabetes mellitus type 2. Continue Accu-Cheks and sliding scale insulin. Check A1c Accu-Cheks reviewed Normocytic anemia H&H stable Monitor as needed Hypoxia Patient's oxygen saturation dropped to 69% on room air with ambulation Started on oxygen via nasal cannula at 2 L Dizziness This is chronic Patient has orthostatic hypotension Continue midodrine Patient continues to be orthostatic Heart rate increased from 77-94 with standing Blood pressure systolic dropped from 119-93 with standing Will request physical therapy evaluation 59-year-old -[place] male with known history of diabetes mellitus presented to the emergency room today with complaints of dizziness and syncopal episode. He admits that he had a brief period of loss of consciousness which was witnessed by his . He still felt dizzy upon arrival in the emergency room. Denies any chest pain or shortness of breath, no fever or chills, no nausea or vomiting, no diarrhea, denies any sick contacts and no recent travel. Denies any contact with anyone COVID-19. Patient admits that he sits down at home for long period of time. Work-up in the emergency room today reveals elevated d-dimer. CT angiogram done reveals saddle embolus. Consult has been placed to the vascular surgeon Dr. Tripp who will be evaluating patient. Meanwhile patient has been placed on heparin drip. 10/26/2019. Vascular surgery believes that the patient may benefit from nonemergent placement of thrombolytics catheters versus pulmonary thrombectomy to prevent CTEPH. Done yesterday. Continue heparin drip for now until after the procedure and then transition to oral anticoagulation 10/27/2019. Echocardiogram reveals mild to moderate concentric left ventricular hypertrophy with global left ventricular wall motion and contractility within normal limits. EF 55 to 60%. Right ventricular systolic function reported as normal. Vascular surgery to perform nonemergent placement of thrombolytics catheters versus pulmonary thrombectomy to prevent CTEPH. Continue IMCU monitoring. 10/28/2019; Echocardiogram reveals mild to moderate concentric left ventricular hypertrophy with global left ventricular wall motion and contractility within normal limits. EF 55 to 60%. Right ventricular systolic function reported as normal. Vascular surgery to perform nonemergent placement of thrombolytics catheters versus pulmonary thrombectomy to prevent CTEPH. 10/29/2019; patient has hypotension and near syncope, dizziness. I put the patient on IV fluids will monitor. ; patient's blood pressure reading from this morning is normal. Going to hold IV fluids and do physical therapy. Blood pressure is stable and no symptoms while on physical therapy patient can be discharged home today with p.o. Eliquis. IV heparin was changed to p.o. Eliquis yesterday. Patient is status post thrombectomy by interventional radiology. 10/31/2019; patient has low blood pressure reading earlier this morning, I started patient on midodrine. Patient is on p.o. Eliquis. We will keep the patient until his blood pressure is normal and dizziness subsides. There is a high risk patient with high clot burden, status post thrombectomy. ; patient's blood pressure is on the low side of normal and patient is still complaining dizziness. Patient is on IV normal saline at 125 mL/h and midodrin, continue with p.o. eliquis. His dizziness is persisted and I am going to do MRI of the brain to check for posterior stroke. Objective - Constitutional Vitals: Vital Signs - 12hr 11/02/19 11/02/19 11/02/19 00:10 04:45 04:46 Temperature 98.1 F 97.8 F 97.8 F Pulse Rate 84 83 Pulse Rate [ Radial] Respiratory 18 18 Rate Blood Pressure 124/81 123/64 O2 Sat by Pulse 98 96 Oximetry 11/02/19 11/02/19 07:17 07:42 Temperature 98.1 F Pulse Rate 83 Pulse Rate [ 89 Radial] Respiratory 17 18 Rate Blood Pressure 102/65 O2 Sat by Pulse 99 97 Oximetry General appearance: Present: no acute distress, well-nourished - EENT Eyes: PERRL, EOM intact ENT: hearing intact, clear oral mucosa - Neck Neck: supple, normal ROM, no masses or JVD - Respiratory Respiratory effort: normal Respiratory: bilateral: CTA - Cardiovascular Rhythm: regular Heart Sounds: Present: S1 & S2 Extremity abnormal: edema (Trace bilateral leg edema, partial amputation of foot) - Gastrointestinal General gastrointestinal: Present: soft, non-tender. Absent: hepatomegaly, splenomegaly Rectal Exam: deferred - Genitourinary Male genitourinary: deferred - Integumentary Integumentary: clear, warm - Musculoskeletal Musculoskeletal: strength equal bilaterally - Neurologic Neurologic: CNII-XII intact - Psychiatric Psychiatric: appropriate mood/affect - Labs CBC & Chem 7: 11/01/19 05:59 11/01/19 05:59 Labs: Abnormal lab results 11/01/19 11/01/19 11/01/19 Range/Units 12:23 16:50 21:14 POC Glucose 184 H 108 H 115 H (70-105) HEART Score - HEART Score Troponin: Troponin T < 0.010 ng/mL (0.00-0.029) 10/24/19 15:17
[2019-11-02] MEDS: INSULIN GLARGINE 100 UNITS/ML SUB-Q SCH (21:24)
[2019-11-03] MEDS: SODIUM CHLORIDE 0.9% 1000 ML 1,000 ML IV SCH (06:30)
[2019-11-03] MEDS: INSULIN LISPRO 100 UNIT/ML VIAL 3 mL SUB-Q SCH ×3 (07:59→17:00)
[2019-11-03] MEDS: metFORMIN 500 MG TAB PO SCH ×2 (09:35→17:10)
[2019-11-03] MEDS: MIDODRINE 5 MG TAB PO SCH ×3 (09:35→17:03)
[2019-11-03] MEDS: APIXABAN 5 MG TAB PO SCH (09:35)
--- NOTE | 2019-11-03 13:08 | Discharge Summary ---
Providers - Providers Date of Admission: 10/25/19 01:22 Date of discharge: 11/03/19 Attending physician: WALKER VILLEGAS 10/25/19 02:54 Consult to Dietitian/Nutrition [CONS] Routine Physician Instructions: Reason For Exam: Reason for Consult: Diet education 10/25/19 04:08 Consult to Physician [CONS] Routine Comment: Consulting Provider: ELAINE TRIPP Physician Instructions: Reason For Exam: pe 10/30/19 08:13 Physical Therapy Evaluation and Treat [CONS] Routine Comment: Reason For Exam: Dizziness 11/02/19 11:08 Physical Therapy Evaluation and Treat [CONS] Routine Comment: Reason For Exam: weakness Primary care physician: LOADER ENGINEER Hospitalization Condition: Critical Hospital course: Assessment and plan: Acute pulmonary embolism right. : Status post thrombectomy of the right pulmonary artery on 10/26 Continue Eliquis Will start Eliquis 5 mg twice daily beginning today Diabetes mellitus type 2. Accu-Cheks reviewed Well controlled A1c was not checked during this admission Continue home medication including basal insulin Normocytic anemia H&H stable Hypoxia -resolved 6-minute walk which was performed yesterday dropped his oxygen saturation However repeat 6-minute walk today was good with oxygen saturation staying above 91% on room air Dizziness This is chronic Patient has very mild orthostatic hypotension today and he is asymptomatic and he denied any dizziness with walking Continue midodrine Patient states that he feels just fine and states he is ready to go home 59-year-old -[place] male with known history of diabetes mellitus presented to the emergency room today with complaints of dizziness and syncopal episode. He admits that he had a brief period of loss of consciousness which was witnessed by his . He still felt dizzy upon arrival in the emergency room. Denies any chest pain or shortness of breath, no fever or chills, no nausea or vomiting, no diarrhea, denies any sick contacts and no recent travel. Denies any contact with anyone COVID-19. Patient admits that he sits down at home for long period of time. Work-up in the emergency room today reveals elevated d-dimer. CT angiogram done reveals saddle embolus. Consult has been placed to the vascular surgeon Dr. Tripp who will be evaluating patient. Meanwhile patient has been placed on heparin drip. 10/26/2019. Vascular surgery believes that the patient may benefit from nonemergent placement of thrombolytics catheters versus pulmonary thrombectomy to prevent CTEPH. Done yesterday. Continue heparin drip for now until after the procedure and then transition to oral anticoagulation 10/27/2019. Echocardiogram reveals mild to moderate concentric left ventricular hypertrophy with global left ventricular wall motion and contractility within normal limits. EF 55 to 60%. Right ventricular systolic function reported as normal. Vascular surgery to perform nonemergent placement of thrombolytics catheters versus pulmonary thrombectomy to prevent CTEPH. Continue IMCU monitoring. 10/28/2019; Echocardiogram reveals mild to moderate concentric left ventricular hypertrophy with global left ventricular wall motion and contractility within normal limits. EF 55 to 60%. Right ventricular systolic function reported as normal. Vascular surgery to perform nonemergent placement of thrombolytics catheters versus pulmonary thrombectomy to prevent CTEPH. 10/29/2019; patient has hypotension and near syncope, dizziness. I put the patient on IV fluids will monitor. ; patient's blood pressure reading from this morning is normal. Going to hold IV fluids and do physical therapy. Blood pressure is stable and no symptoms while on physical therapy patient can be discharged home today with p.o. Eliquis. IV heparin was changed to p.o. Eliquis yesterday. Patient is status post thrombectomy by interventional radiology. 10/31/2019; patient has low blood pressure reading earlier this morning, I started patient on midodrine. Patient is on p.o. Eliquis. We will keep the patient until his blood pressure is normal and dizziness subsides. There is a high risk patient with high clot burden, status post thrombectomy. ; patient's blood pressure is on the low side of normal and patient is still complaining dizziness. Patient is on IV normal saline at 125 mL/h and midodrin, continue with p.o. eliquis. His dizziness is persisted and I am going to do MRI of the brain to check for posterior stroke. 11/02 patient is alert and oriented, states he feels fine and denies any specific complaints, he did well with 6-minute walk and his oxygen saturations were stable and above 91% on room air. Repeat orthostatic blood pressure performed today were fair. He is medically stable for discharge Disposition: - TO HOME OR SELFCARE Time spent for discharge: 38 min Core Measure Documentation - Palliative Care Palliative Care/ Comfort Measures: Not Applicable - Core Measures Any of the following diagnoses?: DVT/PE - VTE Discharge Requirements Deep Vein Thrombosis/Pulmonary Embolism Present on Admission: Yes Has pt received <5 days of overlap therapy or INR<2.0: Yes Anticoagulant overlap therapy prescribed at discharge: Yes Exam - Constitutional Vitals: Temp Pulse Resp BP Pulse Ox 97.9 F 82 16 92/57 99 11/02/19 23:56 11/03/19 10:00 11/03/19 10:00 11/02/19 23:56 11/03/19 10:00 General appearance: Present: no acute distress - EENT Eyes: Present: PERRL, EOM intact ENT: hearing intact, clear oral mucosa - Neck Neck: Present: supple. Absent: masses or JVD - Respiratory Respiratory effort: normal Respiratory: bilateral: CTA - Cardiovascular Rhythm: regular Heart Sounds: Present: S1 & S2 - Extremities Extremities: No edema - Abdominal General gastrointestinal: Present: soft, non-tender Male genitourinary: Present: deferred - Rectal Rectal Exam: deferred - Integumentary Integumentary: Present: clear - Musculoskeletal Musculoskeletal: strength equal bilaterally - Psychiatric Psychiatric: appropriate mood/affect - Neurologic Neurologic: no focal deficits Plan Activity: advance as tolerated Weight Bearing Status: Full Weight Bearing Diet: regular, low fat, low cholesterol, low salt, diabetic Follow up with: PRIMARY CARE, [Primary Care Provider] - 3-5 Days BRITNI HUTSON MD [Staff Physician] - 7 Days Prescriptions: Apixaban [Eliquis] 5 mg PO Q12HR #60 tablet Midodrine [Proamatine] 10 mg PO TID@0800,1200,1600 30 Days tablet
[2019-11-03 19:09] VITALS: BP 128/70
[2019-11-04] MEDS ORDERED: APIXABAN 5 MG TAB PO SCH (10:00)
== END 2019-11-03 19:00 | disposition home health service (06) | DRG 165 ==
LOC: ED 13:31 → IMCU 10-25 01:22 → 4A 10-28 18:06
PROVIDERS: ADMIT Internal Medicine Geriatric Medicine; ATTEND Internal Medicine
PROC: B51 Imaging, Veins, Fluoroscopy (ICD-10-PCS; principal; 2019-10-28)
PROC: 02CR3ZZ Extirpation of Matter from Left Pulmonary Artery, Percutaneous Approach (ICD-10-PCS; 2019-10-28)
PROC: 02CQ3ZZ Extirpation of Matter from Right Pulmonary Artery, Percutaneous Approach (ICD-10-PCS; 2019-10-28)
PROC: 06H03DZ Insertion of Intraluminal Device into Inferior Vena Cava, Percutaneous Approach (ICD-10-PCS; 2019-10-28)
DX: I26.92 Saddle embolus of pulmonary artery without acute cor pulmonale (principal); E11.65 Type 2 diabetes mellitus with hyperglycemia; E86.0 Dehydration; Z90.49 Acquired absence of other specified parts of digestive tract; D64.9 Anemia, unspecified; R09.02 Hypoxemia; Z79.4 Long term (current) use of insulin
CPT/HCPCS: 36014; 36415; 37184; 37191; 70450; 70551; 71045; 71275; 75743; 76937; 80048; 80053; 82550; 82553; 82962; 84484; 85014; 85018; 85025; 85049; 85379; 85384; 85520; 85610; 85730; 93005; 93306; 93970; 96360; G0378; C1769; C1880; C1894; J0690; J1644; J1815; J2250; J2785; J3010; J7030; J7040; Q9967

== ENCOUNTER 2019-11-19 19:07 | Observation (INO) | payer MEDICARE ==
--- NOTE | 2019-11-19 19:37 | Emergency Department Report ---
ED Syncope HPI - General Chief Complaint: Dizziness Stated Complaint: SYNCOPE Time Seen by Provider: 11/19/19 19:10 Source: patient, EMS, RN notes reviewed, old records Exam Limitations: no limitations - History of Present Illness Initial Comments: Patient is a 39-year-old male that presents emergency room with complaints of syncopal episode. Patient states it happened at 1 PM. Patient states that he was trying to wait it out to see if his symptoms were improved. Patient states he continues to be weak and dizzy. Patient denies chest pain or shortness of breath. Patient states his symptoms prior to passing out were weakness, lightheaded and dizziness. Patient states his symptoms continue after coming around. Patient states his loss of consciousness was brief. Patient denies hitting his head. Patient brought in by EMS. Report received from EMS. EMS states the patient was found on the couch and was hypotensive. Patient was given 400 cc of fluid and patient blood pressure improved to 100. Currently patient is still hypotensive and will be given more fluids. Patient was recently admitted to the hospital for a PE. Patient was in the hospital for 10 days and then discharged on Eliquis. Patient states he was feeling fine after being discharged from the hospital. Patient states he was admitted on 24 October 2019 and discharged on November 03, 2019. Patient states since the discharge he was asymptomatic and felt normal. Patient denies recent travel. Patient denies recent international travel. Patient denies exposure to the novel coronavirus. Patient denies sick contacts. Patient denies fever and chills. Patient denies cough. Patient denies diarrhea. Patient denies coming in contact with anybody with symptoms of the novel coronavirus. Timing/Prior Episodes: single episode today, recent history Precipitating Factors: Positive: lightheadedness Current Symptoms: dizziness, lightheadedness, weakness - Related Data Allergies/Adverse Reactions: Allergies No Known Allergies Allergy (Verified 11/07/14 03:53) Home Medications: Ambulatory Orders Apixaban [Eliquis] 5 mg PO Q12HR #60 tablet 11/03/19 Midodrine [Proamatine] 5 mg PO TID@0800,1200,1600 11/19/19 ED Review of Systems ROS: Stated complaint: SYNCOPE Other details as noted in HPI Constitutional: weakness. denies: chills, fever Eyes: denies: eye pain, eye discharge, vision change ENT: denies: ear pain, throat pain Respiratory: denies: cough, shortness of breath, wheezing Cardiovascular: denies: chest pain, palpitations Endocrine: no symptoms reported Gastrointestinal: denies: abdominal pain, nausea, diarrhea Genitourinary: denies: urgency, dysuria Musculoskeletal: denies: back pain, joint swelling, arthralgia Skin: denies: rash, lesions Neurological: as per HPI, weakness, abnormal gait. denies: headache, paresthesias Psychiatric: denies: anxiety, depression Hematological/Lymphatic: denies: easy bleeding, easy bruising ED Past Medical Hx - Past Medical History Previous Medical History?: Yes Hx Hypertension: No Hx Heart Attack/AMI: No Hx Congestive Heart Failure: No Hx Diabetes: Yes Hx Pulmonary Embolism: Yes Hx Asthma: No - Surgical History Hx Appendectomy: Yes Additional Surgical History: pneumothorax 1991. appendectomy-2012 - Family History Family history: no significant - Social History Smoking Status: Never Smoker Substance Use Type: None - Medications Home Medications: Home Medications Medication Instructions Recorded Confirmed Last Taken Type Apixaban [Eliquis] 5 mg PO Q12HR #60 tablet 11/03/19 11/19/19 Unknown Rx Midodrine [Proamatine] 5 mg PO TID@0800,1200,1600 11/19/19 11/19/19 Unknown History ED Physical Exam - General Limitations: No Limitations General appearance: alert, in no apparent distress - Head Head exam: Present: atraumatic, normocephalic - Eye Eye exam: Present: normal appearance - ENT ENT exam: Present: mucous membranes moist - Neck Neck exam: Present: normal inspection - Respiratory Respiratory exam: Present: normal lung sounds bilaterally. Absent: respiratory distress - Cardiovascular Cardiovascular Exam: Present: regular rate, normal rhythm. Absent: systolic murmur, diastolic murmur, rubs, gallop - GI/Abdominal GI/Abdominal exam: Present: soft, normal bowel sounds - Rectal Rectal exam: Present: deferred - Extremities Exam Extremities exam: Present: normal inspection - Back Exam Back exam: Present: normal inspection - Neurological Exam Neurological exam: Present: alert, oriented X3 - Psychiatric Psychiatric exam: Present: normal affect, normal mood - Skin Skin exam: Present: warm, dry, intact, normal color. Absent: rash ED Course Vital Signs 11/19/19 11/19/19 11/19/19 19:15 19:19 19:30 Temperature 98.5 F Pulse Rate 89 91 H Respiratory 15 11 L Rate Blood Pressure 98/55 92/64 O2 Sat by Pulse 98 98 99 Oximetry 11/19/19 11/19/19 11/19/19 19:45 20:00 20:27 Temperature Pulse Rate 84 83 86 Respiratory 17 12 11 L Rate Blood Pressure 99/57 94/55 94/55 O2 Sat by Pulse 98 98 99 Oximetry 11/19/19 11/19/19 11/19/19 20:30 20:45 21:00 Temperature Pulse Rate 86 84 85 Respiratory 11 L 17 15 Rate Blood Pressure 109/68 113/70 105/75 O2 Sat by Pulse 99 98 97 Oximetry 11/19/19 11/19/19 11/19/19 21:15 21:30 21:45 Temperature Pulse Rate 83 84 84 Respiratory 17 14 13 Rate Blood Pressure 118/71 118/58 128/73 O2 Sat by Pulse 99 99 100 Oximetry 11/19/19 11/19/19 11/19/19 22:00 22:15 22:30 Temperature Pulse Rate 86 85 83 Respiratory 13 14 12 Rate Blood Pressure 128/77 135/78 133/80 O2 Sat by Pulse 99 99 100 Oximetry 11/19/19 11/19/19 11/19/19 22:45 23:00 23:15 Temperature Pulse Rate 85 82 81 Respiratory 11 L 16 15 Rate Blood Pressure 130/88 117/77 111/75 O2 Sat by Pulse 100 99 99 Oximetry - Reevaluation(s) Reevaluation #1: Initial evaluation done. Patient still hypotensive and was given another liter of fluid. Labs and EKG ordered. Imaging ordered. 11/19/19 19:37 Reevaluation #2: Patient has received 1 L of fluid from EMS and is started on oral fluids. Patient's blood pressure is improving. 11/19/19 20:15 Reevaluation #3: Patient's blood pressure has improved dramatically. Patient will continue to receive fluids. I discussed all results with patient. I discussed plan of care with patient. Patient agrees with plan of care and admission. Patient to be admitted to the hospitalist service. 11/19/19 21:52 - Consultations Consultation #1: Hospitalist consulted for admission. Hospitalist to admit patient. 11/19/19 22:02 ED Medical Decision Making - Lab Data Result diagrams: 11/19/19 20:28 11/19/19 20:28 - EKG Data -: EKG Interpreted by Me EKG shows normal: sinus rhythm, axis, intervals, QRS complexes, ST-T waves Rate: normal - Radiology Data Radiology results: report reviewed, image reviewed interpreted by me: Chest x-ray: No pneumonia, no pneumothorax, no foreign body, no osseous findings, no acute findings CHEST 1 VIEW INDICATION / CLINICAL INFORMATION: Lightheadedness/Dizziness. COMPARISON: 10/24/2019 FINDINGS: SUPPORT DEVICES: None. HEART / MEDIASTINUM: Stable. LUNGS / PLEURA: No significant pulmonary or pleural abnormality. No pneumothorax. ADDITIONAL FINDINGS: No significant additional findings. IMPRESSION: 1. No acute findings or significant change when compared to 10/24/2019. NONENHANCED CT SCAN OF THE HEAD: INDICATION / CLINICAL INFORMATION: 59 years Male; Lightheadedness/Dizziness. TECHNIQUE: Routine CT head without contrast. All CT scans at this location are performed using CT dose reduction for ALARA by means of automated exposure control. COMPARISON: MR scan of the brain from 11/01/2019 FINDINGS: BRAIN / INTRACRANIAL CONTENTS: No acute hemorrhage, mass effect, midline shift, hydrocephalus, or acute, large territorial infarct. No chronic infarct or focal atrophy. Normal brain volume and ventricular/sulcal size for age. No significant white matter abnormality. CRANIOCERVICAL JUNCTION: No significant abnormality. ORBITS: No significant abnormality of visualized orbits. SINUSES / MASTOIDS: No significant abnormality of the visualized paranasal sinuses or mastoid air cells. ADDITIONAL FINDINGS: None. IMPRESSION: No acute focal parenchymal lesion in the brain - Medical Decision Making Patient is a 59-year-old male that presents emergency room with complaints of a syncopal episode x1, dizziness, lightheadedness and weakness. Patient's single episode happened approximately 1 PM on the day of arrival. Patient came in b ause his symptoms did not improve. Patient recently in the hospital for a saddle embolism and placed on anticoagulants. Patient currently on Eliquis. Patient was brought in by EMS and found to be hypotensive. Patient given fluids and is hypotensive improved. Patient given a total of 3 L of fluid and his hypotension completely resolved. Patient's labs are essentially unremarkable except for renal insufficiency and renal failure. Patient's creatinine well above baseline. Patient's EKG is negative. Patient's chest x-ray negative. Patient had a head CT which is negative for acute findings. Patient admitted to the hospitalist service for further evaluation and treatment. - Differential Diagnosis Dizziness, syncope, weakness, dehydration, electrolyte imbalance, cardiac Critical Care Time: Yes Critical care time in (mins) excluding proc time.: 35 Critical care attestation.: If time is entered above; I have spent that time in minutes in the direct care of this critically ill patient, excluding procedure time. Critical Care Time: 35 minutes ED Disposition Clinical Impression: Dizziness, Dehydration Syncope Qualifiers: Syncope type: unspecified Qualified Code(s): R55 - Syncope and collapse Renal failure Qualifiers: Renal failure chronicity: acute Acute renal failure type: unspecified Qualified Code(s): N17.9 - Acute kidney failure, unspecified Hypotension Qualifiers: Hypotension type: unspecified hypotension type Qualified Code(s): I95.9 - Hy potension, unspecified Disposition: DC-09 OP ADMIT IP TO THIS HOSP Is pt being admited?: Yes Does the pt Need Aspirin: No Condition: Critical Time of Disposition: 21:49
[2019-11-19] MEDS ORDERED: SODIUM CHLORIDE 0.9% 1000 ML 1,000 ML IV ONE ×2 (20:11→21:51)
[2019-11-19 20:50] LABS: Basophils % (Auto) 0.5 % (0.0-1.8); Eosinophils # (Auto) 0.2 K/mm3 (0.0-0.4); Eosinophils % (Auto) 3.4 % (0.0-4.3); Hematocrit 33.2 % (35.5-45.6); Hemoglobin 11.3 gm/dl (11.8-15.2); Lymphocytes # (Auto) 1.4 K/mm3 (1.2-5.4); Lymphocytes % (Auto) 19.4 % (13.4-35.0); Mean Corpuscular HGB Conc 34 % (32-34); Mean Corpuscular Volume 79 fl (84-94); Monocytes # (Auto) 0.6 K/mm3 (0.0-0.8); Monocytes % (Auto) 8.5 % (0.0-7.3); Platelet Count 247 K/mm3 (140-440); Red Blood Count 4.23 M/mm3 (3.65-5.03); Red Cell Distribution Width 15.2 % (13.2-15.2)
--- NOTE | 2019-11-19 21:07 | Cat Scan Report ---
NONENHANCED CT SCAN OF THE HEAD: INDICATION / CLINICAL INFORMATION: 59 years Male; Lightheadedness/Dizziness. TECHNIQUE: Routine CT head without contrast. All CT scans at this location are performed using CT dos e reduction for ALARA by means of automated exposure control. COMPARISON: MR scan of the brain from 11/01/2019 FINDINGS: BRAIN / INTRACRANIAL CONTENTS: No acute hemorrhage, mass effect, midline shift, hydrocephalus, or acu te, large territorial infarct. No chronic infarct or focal atrophy. Normal brain volume and ventricul ar/sulcal size for age. No significant white matter abnormality. CRANIOCERVICAL JUNCTION: No significant abnormality. ORBITS: No significant abnormality of visualized orbits. SINUSES / MASTOIDS: No significant abnormality of the visualized paranasal sinuses or mastoid air chris ls. ADDITIONAL FINDINGS: None. IMPRESSION: No acute focal parenchymal lesion in the brain Signer Name: Ange Calzada MD Signed: 11/19/2019 9:02 PM Workstation Name: [id number]
[2019-11-19 21:12] LABS: Alanine Aminotransferase 10 units/L (7-56); BUN/Creatinine Ratio 14; Blood Urea Nitrogen 21 mg/dL (9-20); Calcium 8.7 mg/dL (8.4-10.2); Hemolysis Index 4
--- NOTE | 2019-11-19 21:20 | XRay Report ---
CHEST 1 VIEW INDICATION / CLINICAL INFORMATION: Lightheadedness/Dizziness. COMPARISON: 10/24/2019 FINDINGS: SUPPORT DEVICES: None. HEART / MEDIASTINUM: Stable. LUNGS / PLEURA: No significant pulmonary or pleural abnormality. No pneumothorax. ADDITIONAL FINDINGS: No significant additional findings. IMPRESSION: 1. No acute findings or significant change when compared to 10/24/2019. Signer Name: All Koenig MD Signed: 11/19/2019 9:15 PM Workstation Name: [id number]
[2019-11-19] MEDS ORDERED: ACETAMINOPHEN 325 MG TAB PO PRN (23:51)
[2019-11-19] MEDS ORDERED: DEXTROSE 50% IN WATER (25GM) 50 ML SYRINGE IV PRN (23:51)
[2019-11-19] MEDS ORDERED: ONDANSETRON 4 MG/2 ML INJ IV PRN (23:51)
[2019-11-19] MEDS ORDERED: MAGNESIUM HYDROXIDE (MOM) ORAL LIQD UDC PO PRN (23:51)
--- NOTE | 2019-11-19 23:59 | History and Physical Report ---
History of Present Illness Date of examination: 11/19/19 Date of admission: 11/19/19 23:00 Chief complaint: Syncope History of present illness: 59-year-old male with known history of diabetes mellitus, pulmonary embolism about a month ago and currently on Eliquis presenting to the emergency room today with complaint of syncopal episode which occurred sometime this afternoon. He subsequently began to feel dizzy and weak and therefore was brought to the emergency room by EMS. He denies any chest pain or shortness of breath, no fever or chills, no nausea vomiting, denies any headache. He was however lightheaded and felt dizzy prior to the syncope. Patient was found to be hypotensive by EMS and was given some IV fluid in route to the emergency room. Patient felt much better upon IV fluid hydration. Work-up in the emergency room reveals elevated BUN and creatinine. CT scan of the head was unremarkable. He has been admitted for evaluation of syncope and possibly dehydration. Past History Past Medical History: diabetes, hypertension, pulmonary embolism Past Surgical History: appendectomy, Other (Pneumothorax in 2012,Partial amputation of left foot.) Social history: no significant social history Family history: no significant family history Medications and Allergies Allergies Allergy/AdvReac Type Severity Reaction Status Date / Time No Known Allergies Allergy Verified 11/07/14 03:53 Home Medications Medication Instructions Recorded Confirmed Last Taken Type Apixaban [Eliquis] 5 mg PO Q12HR #60 tablet 11/03/19 11/19/19 Unknown Rx Midodrine [Proamatine] 5 mg PO TID@0800,1200,1600 11/19/19 11/19/19 Unknown History Active Meds: Active Medications Acetaminophen (Tylenol) 650 mg PO Q4H PRN PRN Reason: Pain MILD(1-3)/Fever >100.5/ONEAL Dextrose (D50w (25gm) Syringe) 50 ml IV Q30MIN PRN; Protocol PRN Reason: Hypoglycemia Dextrose (D50w (25gm) Syringe) 50 ml IV Q30MIN PRN; Protocol PRN Reason: Hypoglycemia Sodium Chloride (Nacl 0.9% 1000 Ml) 1,000 mls @ 125 mls/hr IV DIRECT LUCERO Insulin Human Lispro (Humalog) 0 unit SUB-Q ACHS LUCERO; Protocol Magnesium Hydroxide (Milk Of Magnesia) 30 ml PO Q4H PRN PRN Reason: Constipation Ondansetron HCl (Zofran) 4 mg IV Q8H PRN PRN Reason: Nausea And Vomiting Sodium Chloride (Sodium Chloride Flush Syringe 10 Ml) 10 ml IV BID LUCERO Sodium Chloride (Sodium Chloride Flush Syringe 10 Ml) 10 ml IV PRN PRN PRN Reason: LINE FLUSH Review of Systems Constitutional: no fever, no chills Ears, nose, mouth and throat: no nasal congestion, no sore throat Cardiovascular: no chest pain, no palpitations Respiratory: no cough, no shortness of breath Gastrointestinal: no abdominal pain, no nausea, no vomiting, no diarrhea Genitourinary Male: no dysuria, no hematuria, no nocturia Musculoskeletal: no neck pain, no low back pain Integumentary: no rash, no pruritis Neurological: syncope, no headaches Psychiatric: no anxiety, no paranoia Exam - Constitutional Vitals: Temp Pulse Resp BP Pulse Ox 98.5 F 81 15 111/75 99 11/19/19 19:15 11/19/19 23:15 11/19/19 23:15 11/19/19 23:15 11/19/19 23:15 General appearance: Present: no acute distress, well-nourished - EENT Eyes: Present: PERRL, EOM intact. Absent: scleral icterus ENT: hearing intact, clear oral mucosa, dentition normal - Neck Neck: Present: supple, normal ROM - Respiratory Respiratory effort: normal Respiratory: bilateral: CTA - Cardiovascular Rhythm: regular Heart Sounds: Present: S1 & S2. Absent: gallop, systolic murmur, diastolic murmur, rub - Extremities Extremities: no ischemia, pulses intact, pulses symmetrical, No edema, Full ROM, abnormal (Partial amputation left foot.) Peripheral Pulses: within normal limits - Abdominal General gastrointestinal: Present: soft, non-tender, non-distended, normal bowel sounds. Absent: mass - Integumentary Integumentary: Present: clear, warm, dry - Musculoskeletal Musculoskeletal: strength equal bilaterally - Psychiatric Psychiatric: appropriate mood/affect, intact judgment & insight, memory intact - Neurologic Neurologic: CNII-XII intact, no focal deficits, moves all extremities HEART Score - HEART Score Troponin: Troponin T < 0.010 ng/mL (0.00-0.029) 11/19/19 20:28 Results - Labs CBC & Chem 7: 11/19/19 20:28 11/19/19 20:28 Labs: Abnormal lab results 11/19/19 11/19/19 Range/Units 20:28 20:28 Hgb 11.3 L (11.8-15.2) gm/dl Hct 33.2 L (35.5-45.6) % MCV 79 L (84-94) fl MCH 27 L (28-32) pg Norman % (Auto) 8.5 H (0.0-7.3) % BUN 21 H (9-20) mg/dL Creatinine 1.5 H (0.8-1.3) mg/dL Glucose 248 H (75-100) mg/dL Total Protein 6.2 L (6.3-8.2) g/dL Albumin 3.0 L (3.9-5) g/dL Assessment and Plan - Patient Problems (1) Syncope Current Visit: Yes Status: Acute Qualifiers: Syncope type: unspecified Qualified Code(s): R55 - Syncope and collapse Plan to address problem: Possibly secondary to dehydration. We will continue IV fluid hydration and monitor vital signs closely. Will also monitor orthostatic vital signs . Patient had an echocardiogram sometime in October 2019 which ejection fraction of 55 to 60%. We will schedule patient for carotid Doppler. (2) Dehydration Current Visit: Yes Status: Acute Plan to address problem: We will continue IV fluid hydration and monitor BUN and creatinine. (3) Diabetes mellitus Current Visit: No Status: Acute Plan to address problem: We will monitor Accu-Cheks and continue routine home medications. (4) Pulmonary embolism Current Visit: No Status: Acute Qualifiers: Pulmonary embolism type: saddle Chronicity: acute Acute cor pulmonale presence: without acute cor pulmonale Qualified Code(s): I26.92 - Saddle embolus of pulmonary artery without acute cor pulmonale Plan to address problem: Patient was recently diagnosed with saddle embolism about a month ago. He is currently on anticoagulation-Eliquis. (5) Full code status Current Visit: No Status: Acute
[2019-11-20] MEDS: SODIUM CHLORIDE 0.9% 1000 ML 1,000 ML IV SCH ×3 (01:24→17:56)
[2019-11-20 08:27] LABS: Basophils % (Auto) 0.6 % (0.0-1.8); Eosinophils # (Auto) 0.2 K/mm3 (0.0-0.4); Eosinophils % (Auto) 4.3 % (0.0-4.3); Hematocrit 34.3 % (35.5-45.6); Hemoglobin 11.2 gm/dl (11.8-15.2); Lymphocytes # (Auto) 1.3 K/mm3 (1.2-5.4); Lymphocytes % (Auto) 25.5 % (13.4-35.0); Mean Corpuscular HGB Conc 33 % (32-34); Mean Corpuscular Volume 81 fl (84-94); Monocytes # (Auto) 0.5 K/mm3 (0.0-0.8); Monocytes % (Auto) 9.9 % (0.0-7.3); Platelet Count 219 K/mm3 (140-440); Red Blood Count 4.23 M/mm3 (3.65-5.03); Red Cell Distribution Width 15.2 % (13.2-15.2)
[2019-11-20 08:44] LABS: BUN/Creatinine Ratio 16; Blood Urea Nitrogen 16 mg/dL (9-20); Calcium 8.3 mg/dL (8.4-10.2); Hemolysis Index 3
[2019-11-20] MEDS: INSULIN LISPRO 100 UNIT/ML VIAL 3 mL SUB-Q SCH ×4 (09:29→21:45)
[2019-11-20] MEDS: APIXABAN 5 MG TAB PO SCH ×2 (09:30→21:45)
[2019-11-20] MEDS: MIDODRINE 5 MG TAB PO SCH ×3 (09:30→16:50)
[2019-11-20 10:16] LABS: INR 1.11 (0.87-1.13)
[2019-11-20 10:53] LABS: Bilirubin,Urine NEG (Negative); Blood,Urine NEG (Negative); Color,Urine Yellow (Yellow); Mucus,Urine FEW /HPF; Protein,Urine <15 mg/dL mg/dL (Negative); Urobilinogen,Urine < 2.0 mg/dL (<2.0)
--- NOTE | 2019-11-20 10:59 | Progress Note ---
Assessment and Plan Assessment and plan: --Syncope /autonomic imbalance; Current Visit: Yes Status: Acute Plan to address problem: Possibly secondary to dehydration. continue IV fluids and monitor vital signs closely.and orthostatic vital signs . Patient had an echocardiogram sometime in Oct EF55 to 60%. Follow syncope work-up, Physical therapy --Dehydration Current Visit: Yes Status: Acute Plan to address problem: We will continue IV fluid hydration and monitor BUN and creatinine. -- Diabetes mellitus Current Visit: No Status: Acute Plan to address problem: We will monitor Accu-Cheks and continue routine home medications. --h/o Pulmonary embolism Current Visit: No Status: Acute Plan to address problem: Patient was recently diagnosed with saddle embolism about a month ago. He is currently on anticoagulation-Eliquis. --Full code status Current Visit: No Status: Acute PT OT, Possible discharge in 1 to 2 days if stable Patient was admitted with history of syncopal episode, placed on fall pre cautions Syncope work-up is in progress. Follow clinically Follow PT evaluation recommendation, possible discharge in 1 to 3 days if stable Plan of care reviewed with the patient and his nurse History Interval history: Have seen and examined the patient at the bedside this morning Patient's chart and medications reviewed Admitted with history of syncopal episode No new episodes of syncope since then she Neuro work-up is in progress Denies headache dizziness Vital signs reviewed Hospitalist Physical - Constitutional Vitals: Temp Pulse Resp BP Pulse Ox 97.9 F 81 18 101/65 97 11/20/19 07:43 11/20/19 07:43 11/20/19 07:43 11/20/19 07:43 11/20/19 07:43 General appearance: Present: no acute distress, well-nourished - EENT Eyes: Present: PERRL, EOM intact ENT: hearing intact, clear oral mucosa - Neck Neck: Present: supple, normal ROM - Respiratory Respiratory effort: normal Respiratory: bilateral: diminished, negative: rales, rhonchi, wheezing - Cardiovascular Rhythm: regular Heart Sounds: Present: S1 & S2 - Extremities Extremities: no ischemia, No edema - Abdominal General gastrointestinal: soft, non-tender, non-distended, normal bowel sounds - Integumentary Integumentary: Present: clear, warm - Psychiatric Psychiatric: appropriate mood/affect - Neurologic Neurologic: focal deficits, moves all extremities HEART Score - HEART Score Troponin: Troponin T < 0.010 ng/mL (0.00-0.029) 11/19/19 20: Results - Labs CBC & Chem 7: 11/20/19 07:11/20/19 07: Labs: Laboratory Last Values WBC 5.2 K/mm3 (4.5-11.0) 11/20/19: RBC 4.23 M/mm3 (3.65-5.03) 11/20/19: Hgb 11.2 gm/dl (11.8-15.2) L 11/20/19: Hct 34.3 % (35.5-45.6) L 11/20/19: MCV 81 fl (84-94) L 11/20/19: MCH 27 pg (28-32) L 11/20/19: MCHC 33 % (32-34) 11/20/19: RDW 15.2 % (13.2-15.2) 11/20/19: Plt Count 219 K/mm3 (140-440) 11/20/19: Lymph % (Auto) 25.5 % (13.4-35.0) 11/20/19: [place] % (Auto) 9.9 % (0.0-7.3) H 11/20/19: Eos % (Auto) 4.3 % (0.0-4.3) 11/20/19: Baso % (Auto) 0.6 % (0.0-1.8) 11/20/19 Lymph # (Auto) 1.3 K/mm3 (1.2-5.4) 11/20/19: [place] # (Auto) 0.5 K/mm3 (0.0-0.8) 11/20/19: Eos # (Auto) 0.2 K/mm3 (0.0-0.4) 11/20/19: Baso # (Auto) 0.0 K/mm3 (0.0-0.1) 11/20/19: Seg Neutrophils % 59.7 % (40.0-70.0) 11/20/19: Seg Neutrophils # 3.1 K/mm3 (1.8-7.7) 11/20/19 07:27 PT 14.5 Sec. (12.2-14.9) 11/20/19 07:27 INR 1.11 (0.87-1.13) 11/20/19 07:27 Sodium 139 mmol/L (137-145) 11/20/19 07:27 Potassium 4.2 mmol/L (3.6-5.0) 11/20/19 07:27 Chloride 106.4 mmol/L (98-107) 11/20/19 07:27 Carbon Dioxide 24 mmol/L (22-30) 11/20/19 07:27 Anion Gap 13 mmol/L 11/20/19 07:27 BUN 16 mg/dL (9-20) 11/20/19 07:27 Creatinine 1.0 mg/dL (0.8-1.3) 11/20/19 07:27 Estimated GFR > 60 ml/min 11/20/19 07:27 BUN/Creatinine Ratio 16 % 11/20/19 07:27 Glucose 234 mg/dL (75-100) H 11/20/19 07:27 POC Glucose 235 (70-105) H 11/20/19 09:44 Calcium 8.3 mg/dL (8.4-10.2) L 11/20/19 07:27 Total Bilirubin 0.40 mg/dL (0.1-1.2) 11/19/19 20:28 AST 10 units/L (5-40) 11/19/19 20:28 ALT 10 units/L (7-56) 11/19/19 20:28 Alkaline Phosphatase 93 units/L (35-129) 11/19/19 20:28 Total Creatine Kinase 154 units/L (55-170) 11/19/19 20:28 CK-MB (CK-2) 3.0 ng/mL (0.0-4.0) 11/19/19 20: CK-MB (CK-2) Rel Index 1.9 (0-4) 11/19/19 20:28 Troponin T < 0.010 ng/mL (0.00-0.029) 11/19/19 20:28 Total Protein 6.2 g/dL (6.3-8.2) L 11/19/19 20:28 Albumin 3.0 g/dL (3.9-5) L 11/19/19 20:28 Albumin/Globulin Ratio 0.9 % 11/19/19 20:28 Urine Color Yellow (Yellow) 11/20/19 Unknown Urine Turbidity Clear (Clear) 11/20/19 Unknown Urine pH 5.0 (5.0-7.0) 11/20/19 Unknown Ur Specific [place] 1.020 (1.003-1.030) 11/20/19 Unknown Urine Protein <15 mg/dl mg/dL (Negative) 11/20/19 Unknown Urine Glucose (UA) >=500 mg/dL (Negative) 11/20/19 Unknown Urine Ketones Tr mg/dL (Negative) 11/20/19 Unknown Urine Blood Neg (Negative) 11/20/19 Unknown Urine Nitrite Neg (Negative) 11/20/19 Unknown Urine Bilirubin Neg (Negative) 11/20/19 Unknown Urine Urobilinogen < 2.0 mg/dL (<2.0) 11/20/19 Unknown Ur Leukocyte Esterase Neg (Negative) 11/20/19 Unknown Urine WBC (Auto) 1.0 /HPF (0.0-6.0) 11/20/19 Unknown Urine RBC (Auto) 1.0 /HPF (0.0-6.0) 11/20/19 Unknown Urine Mucus Few /HPF 11/20/19 Unknown Brandt/IV: Voiding Method Toilet IV Catheter Type [Left Forearm INT / Saline Lock ] Active Medications - Current Medications Current Medications: Generic Name Dose Route Start Last Admin Trade Name Freq PRN Reason Stop Dose Admin Acetaminophen 650 mg 11/19/19 23:51 Tylenol PO Q4H PRN Pain MILD(1-3)/Fever >100.5/ONEAL Apixaban 5 mg 11/20/19 10:00 11/20/19 09:30 Eliquis PO 5 mg Q12HR LUCERO Administration Protocol Dextrose 50 ml 11/19/19 23:51 D50w (25gm) Syringe IV Q30MIN PRN Hypoglycemia Protocol Sodium Chloride 1,000 mls @ 125 mls/hr 11/19/19 23:45 11/20/19 10:30 Nacl 0.9% 1000 Ml IV 125 mls/hr DIRECT LUCERO Administration Insulin Human Lispro 0 unit 11/20/19 07:30 11/20/19 09:29 Humalog SUB-Q 3 unit ACHS LUCERO Administration Protocol Magnesium Hydroxide 30 ml 11/19/19 23:51 Milk Of Magnesia PO Q4H PRN Constipation Midodrine 5 mg 11/20/19 08:00 11/20/19 09:30 Proamatine PO 5 mg TID@0800,1200,1600 LUCERO Administration Ondansetron HCl 4 mg 11/19/19 23:51 Zofran IV Q8H PRN Nausea And Vomiting Sodium Chloride 10 ml 11/20/19 10:00 11/20/19 09:30 Sodium Chloride Flush Syringe 10 Ml IV 10 ml BID LUCERO Administration Sodium Chloride 10 ml 11/19/19 23:51 Sodium Chloride Flush Syringe 10 Ml IV PRN PRN LINE FLUSH
--- NOTE | 2019-11-20 15:05 | Vascular Lab Report ---
BILATERAL CAROTID DOPPLER ULTRASOUND INDICATION : syncope TECHNIQUE: Grayscale and color Doppler imaging performed through the neck. COMPARISON: None FINDINGS: Right: There is no significant atherosclerotic disease. Peak systolic velocity in the CCA is 87 cm/ s with end-diastolic velocity of 21 cm/s. Peak systolic velocity in the proximal ICA is 84 cm/s with end-diastolic velocity of 23 cm/s. ICA to CCA ratio is less than 2. There is antegrade flow in the E CA and the vertebral artery. Left: There is no significant atherosclerotic disease. Peak systolic velocity in the CCA is 71 cm/s w ith end-diastolic velocity of 16 cm/s. Peak systolic velocity in the proximal ICA is 92 cm/s with end -diastolic velocity of 37 cm/s. ICA to CCA ratio is less than 2. There is antegrade flow in the ECA and the vertebral artery. IMPRESSION: No hemodynamically significant stenosis by NASCET criteria. Doppler velocities indicate l ess than 50% luminal narrowing throughout both carotid systems. Signer Name: Garrett Mathew Jr, MD Signed: 11/20/2019 3:00 PM Workstation Name: [id number]
[2019-11-21] MEDS: SODIUM CHLORIDE 0.9% 1000 ML 1,000 ML IV SCH (05:49)
[2019-11-21] MEDS: INSULIN LISPRO 100 UNIT/ML VIAL 3 mL SUB-Q SCH ×2 (07:59→12:45)
[2019-11-21 08:00] VITALS: BP 99/68
[2019-11-21] MEDS: MIDODRINE 5 MG TAB PO SCH ×2 (09:59→12:59)
[2019-11-21] MEDS: APIXABAN 5 MG TAB PO SCH (09:59)
--- NOTE | 2019-11-21 10:53 | Discharge Summary ---
Providers - Providers Date of Admission: 11/19/19 23:00 Attending physician: ANNETTE ALCOCER MD 11/19/19 23:51 Consult to Dietitian/Nutrition [CONS] Routine Physician Instructions: Reason For Exam: Reason for Consult: Diet education 11/20/19 11:00 Physical Therapy Evaluation and Treat [CONS] Routine Comment: Reason For Exam: syncope Primary care physician: NISA OROZCO Hospitalization Reason for admission: Vasovagal syncope Condition: Stable Hospital course: 59-year-old male with known history of diabetes mellitus, pulmonary embolism about a month ago and currently on Eliquis presenting to the emergency room today with complaint of syncopal episode which occurred sometime this afternoon. He subsequently began to feel dizzy and weak and therefore was brought to the emergency room by EMS. He denies any chest pain or shortness of breath, no fever or chills, no nausea vomiting, denies any headache. He was however lightheaded and felt dizzy prior to the syncope. Patient was found to be hypotensive by EMS and was given some IV fluid in route to the emergency room. Patient felt much better upon IV fluid hydration. Work-up in the emergency room reveals elevated BUN and creatinine. CT scan of the head was unremarkable. He has been admitted for evaluation of syncope and possibly dehydration. Patient was recently started on midodrine I did discuss with him the need to increase and adjust his. He will also follow-up with his primary care physician. Patient was admitted with history of syncopal episode, placed on fall precautions Syncope work-up is in progress. increased midodrine to 10mg TID recommended discuss with primary doctor --autonomic imbalance; with associated syncope Current Visit: Yes Status: Acute Plan to address problem: Possibly secondary to dehydration. continue IV fluids and monitor vital signs closely.and orthostatic vital signs . Patient had an echocardiogram sometime in Oct EF55 to 60%. Follow syncope work-up, Physical therapy --Dehydration Current Visit: Yes Status: Acute Plan to address problem: We will continue IV fluid hydration and monitor BUN and creatinine. -- Diabetes mellitus Current Visit: No Status: Acute Plan to address problem: We will monitor Accu-Cheks and continue routine home medications. --h/o Pulmonary embolism Current Visit: No Status: Acute Plan to address problem: Patient was recently diagnosed with saddle embolism about a month ago. He is currently on anticoagulation-Eliquis. --Full code status Current Visit: No Status: Acute PT OT, Disposition: DC-01 TO HOME OR SELFCARE Time spent for discharge: 35-minute Core Measure Documentation - Palliative Care Palliative Care/ Comfort Measures: Not Applicable - Core Measures Any of the following diagnoses?: none Exam - Physical Exam Narrative exam: VITAL SIGNS: Reviewed. GENERAL: The patient appears normally developed, Vital signs as documented. HEAD: No signs of head trauma. EYES: Pupils are equal. Extraocular motions intact. EARS: Hearing grossly intact. MOUTH: Oropharynx is normal. NECK: No adenopathy, no JVD. CHEST: Chest with clear breath sounds bilaterally. No wheezes, rales, or rhonchi. CARDIAC: Regular rate and rhythm. S1 and S2, without murmurs, gallops, or rubs. VASCULAR: No Edema. Peripheral pulses normal and equal in all extremities. ABDOMEN: Soft, non tender and non distended. No rebound or guarding, and no masses palpated. Bowel Sounds normal. MUSCULOSKELETAL: Good range of motion of all major joints. Extremities without clubbing, cyanosis or edema. NEUROLOGIC EXAM: Alert and oriented x 3 No focal sensory or strength deficits. Speech normal. Follows commands. PSYCHIATRIC: Mood normal. SKIN: detail exam as documented in skin assessment - Constitutional Vitals: Temp Pulse Resp BP Pulse Ox 97.7 F 82 18 99/68 98 11/21/19 07:42 11/21/19 07:42 11/21/19 08:34 11/21/19 07:42 11/21/19 07:42 Plan Activity: advance as tolerated, fall precautions Diet: low fat Special Instructions: record daily weights, record daily BP diary, physical therapy Durable Medical Equipment Needed Upon Discharge: Walker-Standard Additional Instructions: must follow with primary doctor to re-evaluate midodrine Plan of Treatment: Patient is being discharged with resumption of PT/OT with [facility] [phone] Follow up with: NISA OROZCO MD [Primary Care Provider] - 3-5 Days Prescriptions: Midodrine [Proamatine] 10 mg PO TID@0800,1200,1600 #60
== END 2019-11-21 13:13 | disposition home or self-care (01) ==
LOC: ED 19:07 → 4A 23:00
PROVIDERS: ADMIT Internal Medicine Geriatric Medicine; ATTEND Internal Medicine
DX: R55 Syncope and collapse (principal); E86.0 Dehydration; E11.9 Type 2 diabetes mellitus without complications; I10 Essential (primary) hypertension; I95.9 Hypotension, unspecified; Z90.49 Acquired absence of other specified parts of digestive tract; Z79.4 Long term (current) use of insulin; Z86.711 Personal history of pulmonary embolism
CPT/HCPCS: 36415; 70450; 71045; 80048; 80053; 81001; 82550; 82553; 82962; 84484; 85025; 85610; 93005; 93880; 96360; 96361; 97162; 99285; G0378; J7030

== ENCOUNTER 2020-06-03 16:15 | Emergency (ER) | payer MEDICARE ==
--- NOTE | 2020-06-03 16:31 | Emergency Department Report ---
ED General Adult HPI - General Chief complaint: Hypoglycemia Stated complaint: ALTERED MENTAL STATUS Time Seen by Provider: 06/03/20 16:21 Source: EMS Mode of arrival: Stretcher Limitations: Altered Mental Status - History of Present Illness Initial comments: Patient is a 59-year-old F [place] male with past medical history of insulin- dependent diabetes who is presenting status post episode of hypoglycemia. Blood glucose was 42 when paramedics arrived. Was given D50 blood sugar increased into the 100s. Patient still states he feels very weak and fatigued. Paramedics were called out because the patient was poorly responsive. His it went to wake him up for doctor's appointment when she noticed that his blood glucose was low. No seizure activity was witnessed. Patient did deny any cough cold congestion fevers or chills at this time. - Related Data Previous Rx's Medication Instructions Recorded Last Taken Type Apixaban [Eliquis] 5 mg PO Q12HR #60 tablet 11/03/19 Unknown Rx Midodrine [Proamatine] 10 mg PO TID@0800,1200,1600 #60 11/21/19 Unknown Rx Allergies Allergy/AdvReac Type Severity Reaction Status Date / Time No Known Allergies Allergy Verified 11/07/14 03:53 ED Review of Systems ROS: Stated complaint: ALTERED MENTAL STATUS Other details as noted in HPI Comment: All other systems reviewed and negative ED Past Medical Hx - Past Medical History Hx Hypertension: Yes Hx Heart Attack/AMI: No Hx Congestive Heart Failure: No Hx Diabetes: Yes Hx Pulmonary Embolism: Yes Hx Asthma: No - Surgical History Hx Appendectomy: Yes Additional Surgical History: pneumothorax 1991. appendectomy-2012 - Social History Smoking Status: Never Smoker - Medications Home Medications: Home Medications Medication Instructions Recorded Confirmed Last Taken Type Apixaban [Eliquis] 5 mg PO Q12HR #60 tablet 11/03/19 11/19/19 Unknown Rx Midodrine [Proamatine] 10 mg PO TID@0800,1200,1600 #60 11/21/19 Unknown Rx ED Physical Exam - General Limitations: Altered Mental Status General appearance: alert, in no apparent distress - Head Head exam: Present: atraumatic, normocephalic - Eye Eye exam: Present: normal appearance - ENT ENT exam: Present: mucous membranes moist - Neck Neck exam: Present: normal inspection - Respiratory Respiratory exam: Present: normal lung sounds bilaterally. Absent: respiratory distress, wheezes, rales, rhonchi - Cardiovascular Cardiovascular Exam: Present: regular rate, normal rhythm. Absent: systolic murmur, diastolic murmur, rubs, gallop - GI/Abdominal GI/Abdominal exam: Present: soft, normal bowel sounds - Rectal Rectal exam: Present: deferred - Extremities Exam Extremities exam: Present: normal inspection - Back Exam Back exam: Present: normal inspection - Neurological Exam Neurological exam: Present: alert, oriented X3 - Psychiatric Psychiatric exam: Present: normal affect, normal mood - Skin Skin exam: Present: warm, dry, intact, normal color. Absent: rash ED Course Vital Signs 06/03/20 06/03/20 06/03/20 16:25 16:30 16:45 Pulse Rate 82 84 89 Respiratory 20 13 14 Rate Blood Pressure 108/74 108/74 O2 Sat by Pulse 100 100 100 Oximetry ED Medical Decision Making - Lab Data Result diagrams: 06/03/20 16:37 06/03/20 16:37 Lab Results 06/03/20 06/03/20 Range/Units 16:37 16:37 WBC 7.2 (4.5-11.0) K/mm3 RBC 5.04 H (3.65-5.03) M/mm3 Hgb 13.9 (11.8-15.2) gm/dl Hct 41.5 (35.5-45.6) % MCV 82 L (84-94) fl MCH 28 (28-32) pg MCHC 33 (32-34) % RDW 14.4 (13.2-15.2) % Plt Count 197 (140-440) K/mm3 Lymph % (Auto) 10.8 L (13.4-35.0) % [place] % (Auto) 4.3 (0.0-7.3) % Eos % (Auto) 0.7 (0.0-4.3) % Baso % (Auto) 0.5 (0.0-1.8) % Lymph # (Auto) 0.8 L (1.2-5.4) K/mm3 [place] # (Auto) 0.3 (0.0-0.8) K/mm3 Eos # (Auto) 0.0 (0.0-0.4) K/mm3 Baso # (Auto) 0.0 (0.0-0.1) K/mm3 Seg Neutrophils % 83.7 H (40.0-70.0) % Seg Neutrophils # 6.0 (1.8-7.7) K/mm3 Sodium 144 (137-145) mmol/L Potassium 3.7 (3.6-5.0) mmol/L Chloride 107.0 (98-107) mmol/L Carbon Dioxide 26 (22-30) mmol/L Anion Gap 15 mmol/L BUN 33 H (9-20) mg/dL Creatinine 1.4 H (0.8-1.3) mg/dL Estimated GFR > 60 ml/min BUN/Creatinine Ratio 24 % Glucose 106 H (75-100) mg/dL Calcium 9.0 (8.4-10.2) mg/dL - Medical Decision Making Patient was given some food and he is much more alert. Recheck of his blood glucose in our after arrival was in the 130s. Believe patient is stable for discharge home. Critical care attestation.: If time is entered above; I have spent that time in minutes in the direct care of this critically ill patient, excluding procedure time. ED Disposition Clinical Impression: Hypoglycemia Disposition: DC-01 TO HOME OR SELFCARE Is pt being admited?: No Does the pt Need Aspirin: No Condition: Stable Instructions: Hypoglycemia Referrals: PRIMARY CARE, [Primary Care Provider] - 3-5 Days Time of Disposition: 18:09
[2020-06-03 16:53] LABS: Basophils % (Auto) 0.5 % (0.0-1.8); Eosinophils % (Auto) 0.7 % (0.0-4.3); Hematocrit 41.5 % (35.5-45.6); Hemoglobin 13.9 gm/dl (11.8-15.2); Lymphocytes # (Auto) 0.8 K/mm3 (1.2-5.4); Lymphocytes % (Auto) 10.8 % (13.4-35.0); Mean Corpuscular HGB Conc 33 % (32-34); Mean Corpuscular Volume 82 fl (84-94); Monocytes # (Auto) 0.3 K/mm3 (0.0-0.8); Monocytes % (Auto) 4.3 % (0.0-7.3); Platelet Count 197 K/mm3 (140-440); Red Blood Count 5.04 M/mm3 (3.65-5.03); Red Cell Distribution Width 14.4 % (13.2-15.2)
[2020-06-03 17:23] LABS: BUN/Creatinine Ratio 24; Blood Urea Nitrogen 33 mg/dL (9-20); Hemolysis Index 0
[2020-06-03 19:31] VITALS: BP 121/82
== END 2020-06-03 19:20 | disposition home or self-care (01) ==
LOC: ED 16:15
DX: E11.649 Type 2 diabetes mellitus with hypoglycemia without coma (principal); I10 Essential (primary) hypertension; Z90.49 Acquired absence of other specified parts of digestive tract; Z98.890 Other specified postprocedural states; Z79.899 Other long term (current) drug therapy
CPT/HCPCS: 36415; 80048; 82962; 85025

== ENCOUNTER 2021-09-26 17:24 | Emergency (ER) | payer MEDICARE ==
[2021-09-26 18:51] LABS: Basophils % (Auto) 0.7 % (0.0-1.8); Eosinophils # (Auto) 0.2 K/mm3 (0.0-0.4); Eosinophils % (Auto) 3.4 % (0.0-4.3); Hematocrit 34.5 % (35.5-45.6); Hemoglobin 11.1 gm/dl (11.8-15.2); Lymphocytes # (Auto) 1.3 K/mm3 (1.2-5.4); Lymphocytes % (Auto) 24.2 % (13.4-35.0); Mean Corpuscular HGB Conc 32 % (32-34); Mean Corpuscular Volume 82 fl (84-94); Monocytes # (Auto) 0.5 K/mm3 (0.0-0.8); Monocytes % (Auto) 8.2 % (0.0-7.3); Platelet Count 160 K/mm3 (140-440); Red Cell Distribution Width 13.9 % (13.2-15.2)
[2021-09-26] MEDS ORDERED: MORPHINE 2 MG/1 ML INJ IV ONE (18:56)
--- NOTE | 2021-09-26 19:03 | Emergency Department Report ---
ED Chest Pain HPI - General Chief Complaint: Chest Pain Stated Complaint: CHEST PAIN Time Seen by Provider: 09/26/21 18:31 Source: EMS Mode of arrival: Stretcher Limitations: Physical Limitation - History of Present Illness Initial Comments: 60-year-old male with a history of diabetes, PE, pneumothorax and vertigo currently taking meclizine who presented with chest pain that started this afternoon progressively getting worse. He describes it as right-sided chest pain with pressure. Patient was given 325 of aspirin and 0.4 nitro by the EMS with some relief with the pain. Patient denies any cough, fever or shortness of breath. He was taking his friends to restaurant for lunch when pain started. No other modifying or associated factors reported. MD Complaint: chest pain Severity scale (0 -10): 0 - Related Data Previous Rx's Medication Instructions Recorded Last Taken Type Apixaban [Eliquis] 5 mg PO Q12HR #60 tablet 11/03/19 Unknown Rx Midodrine [Proamatine] 10 mg PO TID@0800,1200,1600 #60 11/21/19 Unknown Rx Ketorolac [Toradol] 10 mg PO Q6H PRN 5 Days #20 tab NS 09/26/21 Unknown Rx Allergies Allergy/AdvReac Type Severity Reaction Status Date / Time No Known Allergies Allergy Verified 11/07/14 03:53 Heart Score - HEART Score History: Slightly suspicious EKG: Normal Age: 45-65 Risk factors: 1-2 risk factors Troponin: < normal limit HEART Score: 2 - EKG Read Time Time EKG Completed: 18:24 EKG Read Time: 19:00 - Critical Actions Critical Actions: 0-3 pts:0.9-1.7%risk of adverse cardiac event.Candidate for discharge ED Review of Systems ROS: Stated complaint: CHEST PAIN Other details as noted in HPI Comment: All other systems reviewed and negative Cardiovascular: chest pain ED Past Medical Hx - Past Medical History Previous Medical History?: Yes Hx Hypertension: Yes Hx Heart Attack/AMI: No Hx Congestive Heart Failure: No Hx Diabetes: Yes Hx Pulmonary Embolism: Yes Hx Asthma: No - Surgical History Hx Appendectomy: Yes Additional Surgical History: pneumothorax 1991. appendectomy-2012 - Social History Smoking Status: Never Smoker Substance Use Type: None - Medications Home Medications: Home Medications Medication Instructions Recorded Confirmed Last Taken Type Apixaban [Eliquis] 5 mg PO Q12HR #60 tablet 11/03/19 11/19/19 Unknown Rx Midodrine [Proamatine] 10 mg PO TID@0800,1200,1600 #60 11/21/19 Unknown Rx Ketorolac [Toradol] 10 mg PO Q6H PRN 5 Days #20 tab NS 09/26/21 Unknown Rx ED Physical Exam - General Limitations: Physical Limitation General appearance: alert, in no apparent distress - Head Head exam: Present: normal inspection - Eye Eye exam: Present: normal appearance Pupils: Present: normal accommodation - ENT ENT exam: Present: normal exam, normal orophraynx, mucous membranes moist - Neck Neck exam: Present: normal inspection, full ROM. Absent: tenderness - Respiratory Respiratory exam: Present: normal lung sounds bilaterally. Absent: respiratory distress, accessory muscle use - Cardiovascular Cardiovascular Exam: Present: regular rate, normal rhythm, normal heart sounds - GI/Abdominal GI/Abdominal exam: Present: soft, normal bowel sounds. Absent: distended, tenderness - Extremities Exam Extremities exam: Present: normal inspection, full ROM, normal capillary refill. Absent: tenderness, pedal edema, joint swelling - Back Exam Back exam: Absent: tenderness - Neurological Exam Neurological exam: Present: alert, oriented X3 - Psychiatric Psychiatric exam: Present: normal affect, normal mood - Skin Skin exam: Present: warm, normal color ED Course Vital Signs 09/26/21 09/26/21 09/26/21 15:15 18:10 18:20 Temperature 98.2 F 97.7 F Pulse Rate 78 81 Respiratory 14 20 Rate Blood Pressure 151/71 123/73 Blood Pressure 94/63 123/73 [Left] O2 Sat by Pulse 99 99 Oximetry 09/26/21 09/26/21 09/26/21 18:32 18:45 19:00 Temperature Pulse Rate 85 82 Respiratory 15 12 14 Rate Blood Pressure 151/71 106/72 106/72 Blood Pressure [Left] O2 Sat by Pulse 99 100 Oximetry 09/26/21 09/26/21 09/26/21 19:15 19:31 19:45 Temperature Pulse Rate 81 79 79 Respiratory 10 L 12 10 L Rate Blood Pressure 139/85 137/79 133/75 Blood Pressure [Left] O2 Sat by Pulse 99 99 99 Oximetry 09/26/21 09/26/21 09/26/21 20:01 20:15 20:31 Temperature Pulse Rate 79 76 Respiratory 8 L Rate Blood Pressure 133/75 126/81 126/81 Blood Pressure [Left] O2 Sat by Pulse 98 99 100 Oximetry 09/26/21 09/26/21 09/26/21 20:45 21:01 21:15 Temperature Pulse Rate 75 74 74 Respiratory 14 10 L 24 Rate Blood Pressure 129/82 129/82 124/79 Blood Pressure [Left] O2 Sat by Pulse 99 100 99 Oximetry 09/26/21 09/26/21 09/26/21 21:31 21:45 22:01 Temperature Pulse Rate 76 74 Respiratory 22 23 Rate Blood Pressure 124/79 128/77 128/77 Blood Pressure [Left] O2 Sat by Pulse 100 99 100 Oximetry 09/26/21 09/26/21 09/26/21 22:15 22:31 22:45 Temperature Pulse Rate Respiratory Rate Blood Pressure 120/75 120/75 132/78 Blood Pressure [Left] O2 Sat by Pulse 99 98 100 Oximetry 09/26/21 09/26/21 09/26/21 23:01 23:15 23:31 Temperature Pulse Rate Respiratory Rate Blood Pressure 132/78 129/83 129/83 Blood Pressure [Left] O2 Sat by Pulse 100 99 99 Oximetry ANAHI score - Anahi Score Age > 65: (0) No Aspirin use within the Past 7 Days: (1) Yes 3 or more CAD Risk Factors: (0) No 2 or more Angina events in past 24 hrs: (0) No Known CAD with more than 50% Stenosis: (0) No Elevated Cardiac Markers: (0) No ST Deviation Greater than 0.5mm: (0) No ANAHI Score: 1 ED Medical Decision Making - Lab Data Result diagrams: 09/26/21 18:39 09/26/21 18:39 - EKG Data -: EKG Interpreted by Mi EKG shows normal: sinus rhythm Rate: normal - EKG Data 09/26/21 19:06 Noted with normal sinus rhythm at a rate of 80 bpm with borderline prolonged MN interval induced borderline ECG with no ST depression or elevation. - Medical Decision Making Here with chest pain/pressure--differential could be but not limited to myocardial infarction, pulmonary embolism, costochondritis, anxiety, gastritis, GERD, pancreatitis, and or pyelonephritis--in order to rule out the above-- so will go ahead and order routine cardiopulmonary work-up that include troponin, EKG, chest x-ray, BNP, CKMB, and CBC, CMP and urinalysis for any correctable infectious process or electrolyte abnormality as a cause. Pt given initial aspirin 325 mg PO x 1 and Nitro 0.4 by the EMS prior to arrival in the ED-- initial EKg did not show any ST depression or elevation -- Lab reviewed and noted to be unremarkable --except slightly elevated BUN/Cr that is likely as a result of dehydrated-- Critical care attestation.: If time is entered above; I have spent that time in minutes in the direct care of this critically ill patient, excluding procedure time. ED Disposition Clinical Impression: Chest pain Qualifiers: Chest pain type: unspecified Qualified Code(s): R07.9 - Chest pain, unspecified Disposition: 01 HOME / SELF CARE / HOMELESS Is pt being admited?: No Does the pt Need Aspirin: No Condition: Stable Instructions: Nonspecific Chest Pain, Adult, [id number] Additional Instructions: Increase your daily fluid to help your hydration Call and follow up with your in the next 3-5 days for progress Call or return to ED if your symptoms worsen Prescriptions: Ketorolac [Toradol] 10 mg PO Q6H PRN 5 Days #20 tab NS PRN Reason: Pain Referrals: PRIMARY CARE, [Primary Care Provider] - 3-5 Days Time of Disposition: 23:30
--- NOTE | 2021-09-26 19:05 | XRay Report ---
CHEST 1 VIEW INDICATION / CLINICAL INFORMATION: Chest Pain. COMPARISON: 11/19/2019 FINDINGS: SUPPORT DEVICES: None. HEART / MEDIASTINUM: No significant abnormality. LUNGS / PLEURA: No significant pulmonary or pleural abnormality. No pneumothorax. ADDITIONAL FINDINGS: No significant additional findings. IMPRESSION: 1. No acute findings. Signer Name: Artem Rodríguez MD Signed: 09/26/2021 7:01 PM Workstation Name: [id number]
[2021-09-26 19:11] LABS: INR 0.97 (0.87-1.13)
[2021-09-26 19:12] LABS: Partial Thromboplastin Time 27.4 Sec. (24.2-36.6)
[2021-09-26 19:16] LABS: Albumin 3.7 g/dL (3.9-5); Calcium 8.4 mg/dL (8.4-10.2)
[2021-09-26 23:27] VITALS: BP 129/83
--- NOTE | 2021-09-27 08:39 | Electrocardiograph Report ---
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
== END 2021-09-26 23:47 | disposition home or self-care (01) ==
LOC: ED 17:24
DX: R07.9 Chest pain, unspecified (principal); I10 Essential (primary) hypertension
CPT/HCPCS: 36415; 71045; 80053; 83690; 84484; 85025; 85610; 85730; 93005; 96374; 99284; J2270